=== PATIENT | male | born 1955 | race African-American/Black ===

== ENCOUNTER 2016-10-15 20:06 | Inpatient (IN) | payer BC ==
--- NOTE | 2016-10-15 23:51 | ER Document Report ---
ED Extremity Problem, Lower - General Mode of Arrival: Ambulatory Information source: Patient TRAVEL OUTSIDE OF THE [place] IN LAST 30 DAYS: No - HPI Patient complains to provider of: Swelling Location: Leg - Right Occurred: Last week Onset/Duration: Gradual, Worse Context: Recent travel - [place] via RV <MADISON NAVARRO - Last Filed: 10/15/16 23:46> <EDU DISLA - Last Filed: 10/16/16 02:04> - General Chief Complaint: Leg Swelling Stated Complaint: PAIN ALL OVER Time Seen by Provider: 10/15/16 23:26 Notes: Patient is a 60-year-old male presenting to the emergency department concerned of right leg swelling onset early last week, but acutely worse Saturday. Patient states that it is quite painful, and he is also experiencing numbness in bilateral feet. Patient reports not being able to drive his RV back from [place] secondary to pain. Patient has history of diabetes, and is prescribed insulin only Saturday through Saturday. Patient does not check his sugars very often. Patient goes to the [facility] for primary care management. (MADISON NAVARRO) - Related Data Allergies/Adverse Reactions: No Known Allergies Allergy (Unverified 10/15/16 20:13) Past Medical History - General Information source: Patient - Social History Smoking Status: Never Smoker Chew tobacco use (# tins/day): No Frequency of alcohol use: Heavy Drug Abuse: None Family History: Reviewed & Not Pertinent Patient has suicidal ideation: No Patient has homicidal ideation: No - Past Medical History Cardiac Medical History: Reports: Hx Hypertension Endocrine Medical History: Reports: Hx Diabetes Mellitus Type 2 Renal/ Medical History: Denies: Hx Peritoneal Dialysis - Immunizations Hx Diphtheria, Pertussis, Tetanus Vaccination: Yes <MADISON NAVARRO - Last Filed: 10/15/16 23:46> Review of Systems - Review of Systems Constitutional: No symptoms reported EENT: No symptoms reported Cardiovascular: No symptoms reported Respiratory: No symptoms reported Gastrointestinal: No symptoms reported Genitourinary: No symptoms reported Male Genitourinary: No symptoms reported Musculoskeletal: See HPI, Leg swelling - Right - with pain, bilateral foot numbness Skin: No symptoms reported Hematologic/Lymphatic: No symptoms reported Neurological/Psychological: No symptoms reported -: Yes All other systems reviewed and negative <MADISON NAVARRO - Last Filed: 10/15/16 23:46> Physical Exam - General General appearance: Alert - HEENT Head: Normocephalic, Atraumatic Eyes: Normal Pupils: PERRL Mouth/Lips: Other - Ketone odor on breath - Respiratory Respiratory status: No respiratory distress Chest status: Nontender Breath sounds: Normal Chest palpation: Normal - Cardiovascular Rhythm: Regular Heart sounds: Normal auscultation Murmur: No - Abdominal Inspection: Normal Bowel sounds: Normal Tenderness: Nontender - Back Back: Normal, Nontender - Extremities General upper extremity: Normal inspection - 3+ Pitting edema to Right lower extremity extending into thigh. Small open wounds weeping. No edema to left lower extremity., Nontender General lower extremity: Other - Neurological Neuro grossly intact: Yes Cognition: Normal Orientation: AAOx4 [place] Coma Scale Eye Opening: Spontaneous Shelby Coma Scale Verbal: Oriented Shelby Coma Scale Motor: Obeys Commands Shelby Coma Scale Total: 15 Speech: Normal - Psychological Associated symptoms: Normal affect, Normal mood - Skin Skin Temperature: Warm Skin Moisture: Dry Skin Color: Normal <MADISON NAVARRO - Last Filed: 10/15/16 23:46> Course - Laboratory Result Diagrams: 10/16/16 00:17 10/16/16 00:17 - Diagnostic Test Radiology reviewed: Image reviewed, Reports reviewed - Chest x-ray shows mild cardiac enlargement with pulmonary vascular congestion - EKG Interpretation by Ut EKG shows normal: Sinus rhythm, [place], Intervals. abnormal: QRS Complexes - Consider anteroseptal infarct, ST-T Waves - Nonspecific lateral T abnormalities Rate: Tachycardia - 105 When compared to previous EKG there are: Previous EKG unavailable - Consults Dr. Miguel Time consulted: 01:35 Consulted provider: will come to ER <EDU DISLA - Last Filed: 10/16/16 02:04> - Vital Signs Vital signs: Temp Pulse Resp BP Pulse Ox 98.3 F 100 16 119/60 98 10/15/16 20:09 10/15/16 20:09 10/15/16 20:09 10/15/16 20:09 10/15/16 20:09 - Laboratory Laboratory results interpreted by me: 10/16/16 10/16/16 10/16/16 00:17 00:17 00:17 WBC 19.9 H RBC 3.21 L Hgb 9.3 L Hct 28.6 L Seg Neuts % (Manual) 86 H Lymphocytes % (Manual) 3 L Abs Neuts (Manual) 17.9 H D-Dimer 2.27 H Sodium 126.5 L Chloride 90 L Carbon Dioxide 21 L BUN 27 H Creatinine 1.41 H Est GFR (Non-Af Amer) 51 L Glucose 407 H* Total Bilirubin 2.5 H Direct Bilirubin 1.6 H AST 15 L Alkaline Phosphatase 232 H Creatine Kinase 36 L Total Protein 6.2 L Albumin 3.0 L Discharge <MADISON NAVARRO - Last Filed: 10/15/16 23:46> - Discharge Admitting Provider: Hospitalist Unit Admitted: Telemetry <EDU DISLA - Last Filed: 10/16/16 02:04> - Discharge Clinical Impression: Cellulitis of right lower extremity Hyperglycemia due to type 2 diabetes mellitus Qualifiers: Diabetes mellitus termite exterminator helper insulin use: with termite exterminator helper use Qualified Code(s): E11.65 - Type 2 diabetes mellitus with hyperglycemia Leukocytosis Qualifiers: Leukocytosis type: bandemia Qualified Code(s): D72.825 - Bandemia Condition: Stable Disposition: ADMITTED INPATIENT Scribe Attestation: 10/16/16 01:38 I personally performed the services described in the documentation, reviewed and edited the documentation which was dictated to the scribe in my presence, and it accurately records my words and actions. (EDU DISLA) Scribe Documentation - Scribe Written by Scribe:: Judith Ponce, 10/15/2016 2346 acting as scribe for :: Nadiya <MADISON NAVARRO - Last Filed: 10/15/16 23:46>
[2016-10-16 00:44] LABS: ALANINE AMINOTRANSFERASE 47 U/L (21-72); ALKALINE PHOSPHATASE 232 U/L (38-126); ANION GAP 16 (5-19); ASPARTATE AMINO TRANSFERASE 15 U/L (17-59); BILIRUBIN,DIRECT 1.6 mg/dL (0.0-0.4); BILIRUBIN,TOTAL 2.5 mg/dL (0.2-1.3); BLOOD UREA NITROGEN 27 mg/dL (7-20); CALCIUM 9.3 mg/dL (8.4-10.2); CARBON DIOXIDE 21 mmol/L (22-30); CHLORIDE 90 mmol/L (98-107); CREATINE KINASE 36 U/L (55-170); CREATININE RESULT 1.41 mg/dL (0.52-1.25); POTASSIUM 4.4 mmol/L (3.6-5.0); SODIUM 126.5 mmol/L (137-145); TOTAL PROTEIN 6.2 g/dL (6.3-8.2)
[2016-10-16 00:47] LABS: HEMATOCRIT 28.6 % (37.9-51.0); HEMOGLOBIN 9.3 g/dL (13.5-17.0); HGB HCT DIFFERENCE -0.7; MEAN CORPUSCULAR HGB CONC 32.5 g/dL (32.0-36.0); MEAN CORPUSCULAR VOLUME 89 fl (80-97); RED BLOOD COUNT 3.21 10^6/uL (4.35-5.55); RED CELL DISTRIBUTION WIDTH 11.9 % (11.5-14.0); WHITE BLOOD COUNT 19.9 10^3/uL (4.0-10.5)
[2016-10-16 00:55] LABS: GLUCOSE 407 mg/dL (75-110)
[2016-10-16 00:56] LABS: CREATINE KINASE MB 0.85 ng/mL (<4.55); TROPONIN I < 0.012 ng/mL
[2016-10-16 00:59] LABS: BAND NEUTROPHILS % (MANUAL) 4 % (3-5); BASOPHILS % (MANUAL) 0 % (0-2); EOSINOPHILS % (MANUAL) 0 % (0-6); LYMPHOCYTES % (MANUAL) 3 % (13-45); TOTAL CELLS COUNTED 100
[2016-10-16 01:00] LABS: BURR CELLS SLIGHT; POLYCHROMASIA SLIGHT; TOXIC GRANULATION SLIGHT
--- NOTE | 2016-10-16 01:15 | RADIOLOGY REPORT (SQ) ---
EXAM DESCRIPTION: CHEST SINGLE VIEW COMPLETED DATE/TIME: 10/16/2016 12:59 am REASON FOR STUDY: peripheral edema COMPARISON: None. EXAM PARAMETERS: NUMBER OF VIEWS: One view. TECHNIQUE: Single frontal radiographic view of the chest acquired. RADIATION DOSE: NA LIMITATIONS: None. FINDINGS: LUNGS AND PLEURA: No opacities, masses or pneumothorax. No pleural effusion. Moderate roly g volume. Pulmonary vascular congestion. Small bibasilar atelectasis. MEDIASTINUM AND HILAR STRUCTURES: No masses. Contour normal. HEART AND VASCULAR STRUCTURES: Mild enlargement of the cardiac silhouette. BONES: No acute findings. HARDWARE: None in the chest. OTHER: No other significant finding. IMPRESSION: Mild enlargement of the cardiac silhouette. Pulmonary vascular congestion. TECHNICAL DOCUMENTATION: JOB ID: [id number]
[2016-10-16] MEDS ORDERED: NORMAL SALINE 1000 ML 1,000 ML IV ONE (01:21)
[2016-10-16] MEDS ORDERED: INSULIN REG, HUMAN 100 UNIT/ML 3 ML VIAL (PYX) IV ONE (01:21)
[2016-10-16] MEDS ORDERED: ENOXAPARIN SODIUM INJ 100 MG/1 ML DISP.SYRIN SUBCUT ONE (01:28)
[2016-10-16] MEDS ORDERED: CLINDAMYCIN 600 MG/D5W RTU 50 ML IV ONE (01:37)
[2016-10-16] MEDS ORDERED: GLUCAGON,HUMAN RECOMB 1 MG INJ IM PRN (01:42)
[2016-10-16] MEDS ORDERED: MAG HYDROX/AL HYDROX/SIMETH SUSP 30 ML UDCUP PO PRN (01:42)
[2016-10-16] MEDS ORDERED: MAGNESIUM HYDROXIDE SUSP 30 ML UDCUP PO PRN (01:42)
[2016-10-16] MEDS ORDERED: ACETAMINOPHEN 325 MG TABLET PO PRN (01:42)
[2016-10-16] MEDS ORDERED: DEXTROSE 50%-WATER 25 GM/50 ML DISP.SYRIN IV PRN ×2 (01:42)
[2016-10-16] MEDS ORDERED: DEXTROSE 40% GEL 15 GM TUBE PO PRN ×2 (01:42)
[2016-10-16] MEDS ORDERED: IPRATROPIUM/ALBUTEROL 0.5-2.5 MG/3 ML AMPUL NEB PRN (01:42)
[2016-10-16] MEDS ORDERED: INSULIN GLARGINE,HUM.REC.ANLOG 300 UNIT/3 ML INSULN.PEN SUBCUT SCH (01:45)
[2016-10-16 02:35] LABS: APPEARANCE,URINE SLIGHTLY-CLOUDY; BILIRUBIN,URINE NEGATIVE (NEGATIVE); GLUCOSE, URINE >=500 mg/dL (NEGATIVE); KETONES,URINE TRACE mg/dL (NEGATIVE); LEUKOCYTE ESTERASE,URINE NEGATIVE (NEGATIVE); NITRITE,URINE NEGATIVE (NEGATIVE); PROTEIN,URINE 100 mg/dL (NEGATIVE); URINE SPECIFIC GRAVITY 1.025
[2016-10-16] MEDS: INSULIN LISPRO 100 UNIT/ML 3 ML VIAL SUBCUT PRN ×4 (04:21→21:02)
[2016-10-16] MEDS ORDERED: OXYCODONE-ACETAMINOPHEN 5-325 MG TABLET PO PRN (05:16)
[2016-10-16] MEDS: NORMAL SALINE 1000 ML 1,000 ML IV PRN ×2 (05:32→12:28)
[2016-10-16] MEDS ORDERED: VANCOMYCIN HCL 1,000 MG in DEXTROSE 5%-WATER 250 ML IV ONE (05:43)
--- NOTE | 2016-10-16 05:43 | PDOC H&P ---
History of Present Illness Admission Date/PCP: 10/16/16 01:42 Patient complains of: Right leg pain History of Present Illness: GERMÁN WING is a 60 year old male with a past medical history of hypertension and diabetes who has been in his usual state of health until approximately 5 days ago. During an RV trip to [place] patient noted right leg swelling and pain prompting him to seek evaluation in the emergency room. He denies previous episode chest pain shortness of breath or cough. He has not been in brackish water or taking antibiotics recently. In the emergency room he was found to have leukocytosis and markedly swelling of his right leg with swelling of the knee joint, several open ulcers without exudate and chronic skin changes. Patient endorses bilateral calf pain with ambulation relieved by rest which has been going on for months. Admittedly he does not check his blood sugar and is found to be greater than 400. Past Medical History Cardiac Medical History: Reports: Hypertension Endocrine Medical History: Reports: Diabetes Mellitus Type 2 Social History Information Source: Patient Lives with: Family Smoking Status: Never Smoker Hx Recreational Drug Use: No Drugs: None - Advance Directive Resuscitation Status: Full Code Family History Family History: DM, Hypertension Parental Family History Reviewed: Yes Children Family History Reviewed: Yes Sibling(s) Family History Reviewed.: Yes Medication/Allergy Home Medications: Carvedilol [Coreg] 1 tab PO Q12 10/16/16 Hydrochlorothiazide 12.5 mg PO DAILY 10/16/16 Insulin Glargine,Hum.rec.anlog [Lantus Insulin 100 Unit/1 ml 10 ml] 30 unit SUBCUT QAM 10/16/16 Allergies/Adverse Reactions: No Known Allergies Allergy (Verified 10/16/16 04:30) Review of Systems Constitutional: PRESENT: chills, fatigue, fever(s), other - Arthralgias Eyes: ABSENT: visual disturbances Ears: ABSENT: hearing changes Cardiovascular: ABSENT: chest pain, dyspnea on exertion, edema, orthropnea, palpitations Respiratory: ABSENT: cough, hemoptysis Gastrointestinal: ABSENT: abdominal pain, constipation, diarrhea, hematemesis, hematochezia, nausea, vomiting Genitourinary: ABSENT: dysuria, hematuria Musculoskeletal: PRESENT: as per HPI. ABSENT: joint swelling Integumentary: PRESENT: as per HPI Neurological: ABSENT: abnormal gait, abnormal speech, confusion, dizziness, focal weakness, syncope Psychiatric: ABSENT: anxiety, depression, homidical ideation, suicidal ideation Endocrine: ABSENT: cold intolerance, heat intolerance, polydipsia, polyuria Hematologic/Lymphatic: ABSENT: easy bleeding, easy bruising Physical Exam Vital Signs: Temp Pulse Resp BP Pulse Ox 100.2 F 100 19 108/68 97 10/16/16 04:32 10/15/16 20:09 10/16/16 04:20 10/16/16 04:20 10/16/16 04:20 General appearance: PRESENT: cooperative, mild distress, well-developed, well- nourished Head exam: PRESENT: atraumatic, normocephalic Eye exam: PRESENT: conjunctiva pink, EOMI, PERRLA. ABSENT: scleral icterus Ear exam: PRESENT: normal external ear exam Mouth exam: PRESENT: moist, tongue midline Neck exam: ABSENT: carotid bruit, JVD, lymphadenopathy, thyromegaly Respiratory exam: PRESENT: clear to auscultation sania. ABSENT: rales, rhonchi, wheezes Cardiovascular exam: PRESENT: gallop, RRR, +S2, systolic murmur. ABSENT: diastolic murmur, rubs Pulses: PRESENT: normal dorsalis pedis pul GI/Abdominal exam: PRESENT: normal bowel sounds, soft. ABSENT: distended, guarding, mass, organolmegaly, rebound, tenderness Rectal exam: PRESENT: deferred Extremities exam: PRESENT: full ROM. ABSENT: calf tenderness, clubbing, pedal edema Neurological exam: PRESENT: alert, awake, oriented to person, oriented to place , oriented to time, oriented to situation, CN II-XII grossly intact. ABSENT: motor sensory deficit Psychiatric exam: PRESENT: appropriate affect, normal mood. ABSENT: homicidal ideation, suicidal ideation Skin exam: PRESENT: abrasion, erythema, warm. ABSENT: intact Results Laboratory Results: 10/16/16 01:50 Urine Color DARK YELLOW Urine Appearance SLIGHTLY-CLOUDY Urine pH 5.0 Ur Specific [place] 1.025 Urine Protein 100 H Urine Glucose (UA) >=500 H Urine Ketones TRACE H Urine Blood NEGATIVE Urine Nitrite NEGATIVE Ur Leukocyte Esterase NEGATIVE Urine WBC (Auto) 12 Urine RBC (Auto) 31 Impressions: Chest X-Ray 10/15/16 23:46 IMPRESSION: Mild enlargement of the cardiac silhouette. Pulmonary vascular congestion. Assessment & Plan - Diagnosis (1) Cellulitis of right lower extremity Is this a current diagnosis for this admission?: YesPlan: Empiric coverage for MRSA and Pseudomonas, complicated by uncontrolled diabetes and peripheral vascular disease by history. Strongly consider orthopedic surgery consultation for arthrocentesis given knee joint pain (2) Cardiomegaly Is this a current diagnosis for this admission?: YesPlan: No history of heart failure and concern for bacteremia and endocarditis will initiate workup with TTE (3) DVT (deep venous thrombosis) Is this a current diagnosis for this admission?: YesPlan: Full dose Lovenox initiated and continued, venous Doppler pending (4) Hyperglycemia due to type 2 diabetes mellitus Qualifiers: Diabetes mellitus mcfp insulin use: with mcfp use Qualified Code(s): E11.65 - Type 2 diabetes mellitus with hyperglycemia Is this a current diagnosis for this admission?: YesPlan: A1c ordered, continue home dose Lantus plus sliding scale q. before meals and at bedtime (5) Leukocytosis Qualifiers: Leukocytosis type: bandemia Qualified Code(s): D72.825 - Bandemia Is this a current diagnosis for this admission?: YesPlan: Leg cellulitis likely source spell and concern for bacteremia given systemic symptoms, cardiomegaly with murmur. Follow-up blood cultures, empiric antibiotics initiated - Time Time Spent: 50 to 70 Minutes - Inpatient Certification Medical Necessity: Need Close Monitoring Due to Risk of Patient Decompensation
[2016-10-16] MEDS ORDERED: VANCOMYCIN HCL 0 MG in DEXTROSE 5%-WATER 250 ML IV NR (05:45)
[2016-10-16] MEDS ORDERED: PIPERACILLIN/TAZOBACTAM 3.375 GM VIAL IV PRN (06:00)
[2016-10-16] MEDS ORDERED: VANCOMYCIN HCL INJ 1000 MG VIAL IV PRN (06:30)
[2016-10-16] MEDS ORDERED: PIPERACILLIN/TAZOBACTAM 3.375 GM VIAL IV ONE (06:31)
[2016-10-16] MEDS ORDERED: VANCOMYCIN HCL INJ 1000 MG VIAL ONE (06:31)
[2016-10-16 06:39] LABS: ANION GAP 13 (5-19); BLOOD UREA NITROGEN 30 mg/dL (7-20); CARBON DIOXIDE 23 mmol/L (22-30); CHLORIDE 90 mmol/L (98-107); CREATININE RESULT 1.36 mg/dL (0.52-1.25); GLUCOSE 355 mg/dL (75-110); POTASSIUM 3.9 mmol/L (3.6-5.0)
[2016-10-16 06:52] LABS: HEMATOCRIT 27.4 % (37.9-51.0); HEMOGLOBIN 9.1 g/dL (13.5-17.0); HGB HCT DIFFERENCE -0.1; MEAN CORPUSCULAR HEMOGLOBIN 29.6 pg (27.0-33.4); MEAN CORPUSCULAR HGB CONC 33.2 g/dL (32.0-36.0); MEAN CORPUSCULAR VOLUME 89 fl (80-97); RED BLOOD COUNT 3.07 10^6/uL (4.35-5.55); RED CELL DISTRIBUTION WIDTH 11.9 % (11.5-14.0); WHITE BLOOD COUNT 19.7 10^3/uL (4.0-10.5)
[2016-10-16] MEDS: PIPERACILLIN SODIUM/TAZOBACTAM 3.375 GM in NORMAL SALINE 100 ML IV SCH ×3 (07:01→17:37)
[2016-10-16 07:03] LABS: BAND NEUTROPHILS % (MANUAL) 5 % (3-5); BASOPHILS % (MANUAL) 0 % (0-2); EOSINOPHILS % (MANUAL) 0 % (0-6); LYMPHOCYTES % (MANUAL) 9 % (13-45); TOTAL CELLS COUNTED 100
[2016-10-16 07:09] LABS: HYPOCHROMASIA SLIGHT; POLYCHROMASIA SLIGHT
--- NOTE | 2016-10-16 10:02 | EKG REPORT ---
SEVERITY:- ABNORMAL ECG - SINUS TACHYCARDIA CONSIDER ANTEROSEPTAL INFARCT NONSPECIFIC T ABNORMALITIES, LATERAL LEADS : Confirmed by: Milad Alcantara 16-Oct-2016 10:01:24
--- NOTE | 2016-10-16 10:51 | RADIOLOGY REPORT (SQ) ---
EXAM DESCRIPTION: VENOUS UNILATERAL LOWER COMPLETED DATE/TIME: 10/16/2016 10:37 am REASON FOR STUDY: edema COMPARISON: None. TECHNIQUE: Dynamic and static álvarez scale and color images acquired of the right leg venous system. S elected spectral images acquired with additional compression and augmentation maneuvers. The contrala teral common femoral vein and saphenofemoral junction were also imaged. Images stored on PACS. LIMITATIONS: None. FINDINGS: RIGHT COMMON FEMORAL: Normal phasicity, compression and augmentation. No visualized echogenic material on g ray scale. No defects on color images. FEMORAL: Normal compression and augmentation. No visualized echogenic material on álvarez scale. No defe cts on color images. POPLITEAL: Normal compression, augmentation. No visualized echogenic material on álvarez scale. No defec ts on color images. CALF VESSELS: Normal compression, augmentation. No visualized echogenic material on álvarez scale. No de fects on color images. GSV and SSV: Normal compression, augmentation. No visualized echogenic material on álvarez scale. No def ects on color images. ANY DEEP VENOUS INSUFFICIENCY: No deep venous reflux. ANY EVIDENCE OF POPLITEAL CYST: No. OTHER: No other significant finding. LEFT COMMON FEMORAL VEIN AND SAPHENOFEMORAL JUNCTION: Normal phasicity, compression and augmentation. No visualized echogenic material on álvarez scale. No de fects on color images. IMPRESSION: NO EVIDENCE OF DVT OR SVT IN THE RIGHT LEG. TECHNICAL DOCUMENTATION: JOB ID: [id number] [employer]- All Rights Reserved
[2016-10-16] MEDS: DOCUSATE SODIUM 100 MG CAPSULE PO SCH ×2 (10:56→17:37)
[2016-10-16] MEDS: CARVEDILOL 12.5 MG TABLET PO SCH ×2 (10:57→21:01)
--- NOTE | 2016-10-16 11:23 | PROGRESS NOTE E ---
Progress Note NAME: GERMÁN WING : 1955 AGE: 60Y DATE: 10/16/2016 ROOM: 425 TIME SPENT MANAGING PATIENT: 40 minutes. SUBJECTIVE: Patient continued to have right leg pain. Again, noted that he has been on a recent RV trip and was sitting the whole time basically. No prior history of blood clot. He denies fever, chills, headache, chest pain, and shortness of breath. He denies any history of liver disease or drinking. OBJECTIVE: VITAL SIGNS: Temperature 100.2, blood pressure 107/50, pulse 95, respirations 20. GENERAL: He is alert, in no apparent distress. HEENT: Sclera is nonicteric. Conjunctivae clear. Oropharynx has moist mucous membranes. NECK: No JVD. Midline trachea. RESPIRATORY: Clear to auscultation. No wheezes, rhonchi. CARDIAC: Regular rate and rhythm. No murmurs, gallops, rubs. ABDOMEN: Soft, nontender, nondistended. Positive bowel sounds. No rebound, no guarding. EXTREMITIES: He has swelling in his right lower extremity. He does have calf tenderness noted in the right leg as well. SKIN: He has erythema, induration of the right lower extremity distal to the knee. LABORATORIES: White blood count 19.7, hemoglobin 9.1. Chemistry panel shows sodium 126, potassium 3.9, chloride 90, bicarb 23, BUN 30, creatinine 1.36, glucose 355, total bili 2.5, direct bili is 1.6. AST 15, ALT 47, Alk phos 232. ASSESSMENT AND PLAN: 1. RIGHT LOWER EXTREMITY CELLULITIS. Continue IV vancomycin and Zosyn started on admission. Blood cultures are pending. Venous Doppler of the lower extremity is pending given patient's history of recent long RV trip. We will continue full-dose Lovenox for now until Doppler results are back. 2. ANEMIA. Given constellation of anemia and elevated liver function tests, hyponatremia, concerned that patient may be a drinker, although there is no reported history of this. We will need to monitor for signs of withdrawal with regard to this. With regard to the anemia itself, I will check anemia panel and monitor H and H for stability on anticoagulation. Hemoccult stool as well. 3. HYPONATREMIA. THIS MAY BE PSEUDOHYPONATREMIA ACTUALLY GIVEN SIGNIFICANT ELEVATION IN GLUCOSE. Continue to monitor labs closely and correct hyperglycemia. 4. UNCONTROLLED DIABETES. Patient has been started on Lantus. Check a hemoglobin A1C. Sliding scale insulin. He admits to not checking sugars regularly. 5. ELEVATED LIVER FUNCTION TEST. Check hepatitis panel. Monitor for any signs of alcohol withdrawal, although patient denies history. 6. HYPERTENSION. 7. CARDIOMEGALY. Check echocardiogram. DICTATING PHYSICIAN: KANE STEVENSON M.D. [id number] PHY#: [id number] ID: [id number] JOB#: [id number] ACCT: [id number] cc: >
[2016-10-16 13:48] LABS: FOLATE 8.23 ng/mL (>2.76)
[2016-10-16] MEDS ORDERED: ENOXAPARIN SODIUM INJ 100 MG/1 ML DISP.SYRIN SUBCUT SCH (14:00)
[2016-10-16] MEDS: VANCOMYCIN HCL 1,000 MG in DEXTROSE 5%-WATER 250 ML IV SCH (17:37)
[2016-10-16] MEDS: ACETAMINOPHEN 325 MG TABLET PO PRN (20:21)
[2016-10-17] MEDS: PIPERACILLIN SODIUM/TAZOBACTAM 3.375 GM in NORMAL SALINE 100 ML IV SCH ×4 (00:32→20:13)
[2016-10-17 05:16] LABS: ALANINE AMINOTRANSFERASE 37 U/L (21-72); ALBUMIN 2.6 g/dL (3.5-5.0); ALKALINE PHOSPHATASE 226 U/L (38-126); ASPARTATE AMINO TRANSFERASE 15 U/L (17-59); BILIRUBIN,DIRECT 1.6 mg/dL (0.0-0.4); BILIRUBIN,TOTAL 2.2 mg/dL (0.2-1.3); TOTAL PROTEIN 5.2 g/dL (6.3-8.2)
[2016-10-17] MEDS: ACETAMINOPHEN 325 MG TABLET PO PRN (05:47)
[2016-10-17] MEDS: VANCOMYCIN HCL 1,000 MG in DEXTROSE 5%-WATER 250 ML IV SCH ×2 (06:25→18:21)
[2016-10-17] MEDS: ENOXAPARIN SODIUM INJ 40 MG/0.4 ML DISP.SYRIN SUBCUT SCH (08:01)
[2016-10-17] MEDS: INSULIN LISPRO 100 UNIT/ML 3 ML VIAL SUBCUT PRN ×3 (08:13→21:33)
--- NOTE | 2016-10-17 09:37 | PDOC PROGRESS REPORT ---
Subjective Progress Note for:: 10/17/16 Subjective:: Continued pain and swelling of right leg. Fevers reported overnight. Patient denies chest pain, shortness of breath, abdominal pain, nausea, vomiting. Physical Exam Vital Signs: Temp Pulse Resp BP Pulse Ox 97.9 F 84 16 145/74 H 99 10/17/16 08:00 10/17/16 08:00 10/17/16 08:00 10/17/16 08:00 10/17/16 08:00 Intake & Output 10/16/16 10/17/16 10/18/16 06:59 06:59 06:59 Intake Total 250 3240 Balance 250 3240 Weight 97.3 kg 97.3 kg GENERAL: No acute distress HEENT: Conjunctiva clear, nonicteric, moist mucous membranes, no JVD, midline trachea RESPIRATORY: Clear to auscultation bilaterally, no wheezes, no rhonchi CARDIAC: Regular rate and rhythm, no murmurs/gallops/rubs ABDOMEN: Soft, nondistended, nontender, positive bowel sounds, no rebound, no guarding EXTREMETIES: No edema, cyanosis, clubbing NEUROLOGIC: Alert, oriented to person/place/time, CN's grossly intact, no focal deficits. Tactile sensation intact in right lower extremity, patient able to plantarflex and dorsiflex right foot. No evidence of compartment syndrome. SKIN: Erythema/induration right lower extremity distal to the knee PSYCH: Normal mood, normal affect MUSCULOSKELETAL: Patient has continued swelling and tenderness of right lower extremity Results Laboratory Results: 10/16/16 06:06 10/16/16 06:06 10/16/16 10/16/16 10/17/16 06:06 06:06 04:46 Retic Count (auto) 2.18 Absolute Retic 0.068 Iron < 10.1 L TIBC 242 L % Saturation UNABLE TO CALCULATE Ferritin 525.00 H Total Bilirubin 2.2 H AST 15 L ALT 37 Alkaline Phosphatase 226 H Total Protein 5.2 L Albumin 2.6 L Vitamin B12 674.0 Folate 8.23 Impressions: Chest X-Ray 10/15/16 23:46 IMPRESSION: Mild enlargement of the cardiac silhouette. Pulmonary vascular congestion. Venous Doppler Study 10/16/16 00:00 IMPRESSION: NO EVIDENCE OF DVT OR SVT IN THE RIGHT LEG. Assessment & Plan - Diagnosis (1) Sepsis Is this a current diagnosis for this admission?: YesPlan: Secondary to right lower extremity cellulitis. (2) Cellulitis of right lower extremity Is this a current diagnosis for this admission?: YesPlan: Condition not improving despite IV Zosyn and IV vancomycin. Check MRI of right lower extremity to rule out deep space fluid collection. Consult surgery if MRI is abnormal. (3) Alcohol abuse Is this a current diagnosis for this admission?: YesPlan: Continue to monitor for signs of withdrawal. As needed Ativan. Thiamine. (4) Hypertension Is this a current diagnosis for this admission?: Yes (5) Hyponatremia Is this a current diagnosis for this admission?: YesPlan: Likely secondary to alcohol abuse. Should correct with alcohol cessation. (6) Elevated liver function tests Is this a current diagnosis for this admission?: YesPlan: Likely secondary to alcohol use. Viral hepatitis panel negative. (7) Hyperglycemia due to type 2 diabetes mellitus Qualifiers: Diabetes mellitus usp insulin use: with local company intermodal truck driver use Qualified Code(s): E11.65 - Type 2 diabetes mellitus with hyperglycemia Is this a current diagnosis for this admission?: YesPlan: Glucose control poor secondary to ongoing infection. Increase Lantus to 40 units subcu nightly. Continue sliding scale insulin coverage. Hemoglobin A1c 8.0. - Time Time Spent with patient: 35 or more minutes
[2016-10-17] MEDS: CARVEDILOL 12.5 MG TABLET PO SCH ×2 (10:19→21:33)
[2016-10-17] MEDS: THIAMINE HCL 100 MG TABLET PO SCH (10:19)
[2016-10-17] MEDS: DOCUSATE SODIUM 100 MG CAPSULE PO SCH ×2 (10:19→18:21)
[2016-10-17] MEDS: OXYCODONE HCL IR 5 MG TABLET PO PRN ×2 (10:35→16:49)
[2016-10-17] MEDS ORDERED: SUCCINYLCHOLINE CHLORIDE INJ 200 MG/10 ML VIAL ONE (10:42)
[2016-10-17] MEDS ORDERED: LIDOCAINE 2% INJ-PF (20 MG/ML) 10 ML AMPUL ONE (10:42)
[2016-10-17] MEDS ORDERED: GLYCOPYRROLATE INJ 0.4 MG/2 ML VIAL ONE (10:42)
[2016-10-17] MEDS ORDERED: ONDANSETRON HCL INJ/PF 4 MG/2 ML SDV ONE (10:42)
[2016-10-17] MEDS ORDERED: ROCURONIUM BROMIDE INJ 50 MG/5 ML VIAL IV ONE (10:42)
--- NOTE | 2016-10-17 13:17 | XCELERA REPORT ---
[address] [address] Transthoracic Echocardiogram Report Name: GERMÁN WING Age: 60 yrs Gender: Male : 1955 Patient Status: Inpatient Patient Location: 4S\S\425\S\A Study Date: 10/16/2016 09:52 AM Height: 72 in Weight: 215 lb BSA: 2.2 m2 Procedure: A two-dimensional transthoracic echocardiogram with color flow and Doppler was performed. Study Quality: Fair. Reason For Study: bacteremia w murmur History: bacteremia w murmur. Ordering Physician: BOLIVAR MOORE Performed By: Lexii Cardona Interpretation Summary The left ventricle is normal in size. There is mild concentric left ventricular hypertrophy. LV EF is > than 65% Left ventricular systolic function is normal. Doppler measurements suggest normal left ventricular diastolic function The left ventricular wall motion is normal. The right ventricle is grossly normal size. The left atrial size is normal. There is no evidence of mitral valve prolapse. There is no mitral valve stenosis. There is no mitral regurgitation noted. There is mild to moderate aortic stenosis There is a peak gradient of 37 mm of Hg. No aortic regurgitation is present. There is no tricuspid stenosis. There is a mild amount of tricuspid regurgitation There is mild pulmonary hypertension by echo RVSP is 43 to 48 mm of Hg ,with RA mean of 5 to 10. There is no pericardial effusion. MMode/2D Measurements \T\ Calculations RVDd: 3.2 cm LVIDd: 4.8 cmFS: 38.1 % Ao root diam: 3.2 cm IVSd: 1.3 cm LVIDs: 2.9 cmEDV(Teich): 105.0 ml LVPWd: 1.3 cmESV(Teich): 33.3 ml Ao root area: 7.9 cm2 EF(Teich): 68.3 % LA dimension: 3.9 cm LVOT diam: 2.3 cm LVOT area: 4.2 cm2 Doppler Measurements \T\ Calculations MV E max sarah: MV P1/2t max sarah: Ao V2 max: LV V1 max P.3 cm/sec 130.9 cm/sec 304.1 cm/sec 7.6 mmHg MV A max sarah: MV P1/2t: 58.7 msec Ao max PG: LV V1 mean P.8 cm/sec MVA(P1/2t): 3.7 cm2 37.0 mmHg 3.6 mmHg MV E/A: 1.5 MV dec slope: Ao V2 mean: LV V1 max: 653.7 cm/sec2 204.0 cm/sec 137.9 cm/sec Ao mean PG: LV V1 mean: 20.0 mmHg 84.9 cm/sec Ao V2 VTI: LV V1 VTI: 56.5 cm 23.9 cm BECK(I,D): 1.8 cm2 BECK(V,D): 1.9 cm2 SV(LVOT): 100.1 ml PA V2 max: TR max sarah: 120.0 cm/sec 309.3 cm/sec PA max P.8 mmHg TR max P.3 mmHg Left Ventricle The left ventricle is normal in size. There is mild concentric left ventricular hypertrophy. LV EF is > than 65%. Left ventricular systolic function is normal. Doppler measurements suggest normal left ventricular diastolic function. The left ventricular wall motion is normal. There is no thrombus. There is no ventricular septal defect visualized. Right Ventricle The right ventricle is grossly normal size. Atria The right atrium is normal. The left atrial size is normal. The interatrial septum is intact with no evidence for an atrial septal defect. Mitral Valve There is mild mitral annular calcification. There is no evidence of mitral valve prolapse. There is no vegetation seen on the mitral valve. There is no mitral valve stenosis. There is no mitral regurgitation noted. Aortic Valve There is no aortic valvular vegetation. There is mild to moderate aortic stenosis. There is a peak gradient of 37 mm of Hg. No aortic regurgitation is present. Tricuspid Valve There is no tricuspid stenosis. There is a mild amount of tricuspid regurgitation. There is mild pulmonary hypertension by echo. RVSP is 43 to 48 mm of Hg ,with RA mean of 5 to 10. Pulmonic Valve There is no pulmonic valvular stenosis. There is no pulmonic valvular regurgitation. Great Vessels The aortic root is normal size. Effusions There is no pericardial effusion. : BOLIVAR MOORE > Leighann Quick
[2016-10-17] MEDS ORDERED: NORMAL SALINE 1000 ML 1,000 ML IV PRN (15:30)
--- NOTE | 2016-10-17 17:41 | RADIOLOGY REPORT (SQ) ---
EXAM DESCRIPTION: MRI RT LOWER EXTREMITY WITHOUT COMPLETED DATE/TIME: 10/17/2016 1:49 pm REASON FOR STUDY: RLE cellulitis COMPARISON: Right lower extremity venous Doppler 10/16/2016 TECHNIQUE: Right lower extremity MRI was performed from the mid thighs through the mid calf, includi ng axial sagittal and coronal T1, and stir/ fat-sat T2 weighted images. FINDINGS: Imaging from the mid thigh through the knee joint demonstrates abnormal muscle edema withi n the distal aspect of the vastus medialis muscle, and at the distal attachment of the biceps femoris . These findings are best shown on series 3 images 20 through 31, and are worrisome for myositis wit hout abscess. In the distal medial thigh, skin thickening and subcutaneous edema is present. Superficial to the me dial and lateral patellar retinaculum, there is soft tissue gas in the subcutaneous fat, and gas and fluid in the prepatellar bursa. These findings are best shown on series 3, image 32 through 43, and sagittal STIR series 6 images 7 through 28. Large field of view imaging was performed. There is a suprapatellar knee joint effusion. No gross i ntra articular air is identified. Subtle muscular edema is present in the tibialis anterior muscle on axial images 22 through 36 worris ome for myositis. No well-circumscribed fluid collection in the muscle worrisome for intramuscular a bscess There is diffuse pretibial subcutaneous edema and skin thickening from superficial cellulitis in the lower leg. No abnormal bone marrow signal. Normal flow signal identified in the distal superficial femoral blessing ry and vein and popliteal artery and vein in the field of view. This report was discussed with Dr. Kaplan, 1430 hours, 10/17/2016. IMPRESSION: Air and fluid in the prepatellar bursa with extensive surrounding cellulitis in the ante rior knee soft tissues. Muscle edema involving the vastus medialis inferior aspect, and distal aspect medial head biceps femo ris. Muscle edema in the tibialis anterior. These findings are worrisome for myositis. No definite intramuscular abscess is identified. Knee joint effusion without gross evidence of intra-articular air by MRI. TECHNICAL DOCUMENTATION: JOB ID: [id number] [employer]- All Rights Reserved
[2016-10-17 18:56] LABS: CREATININE RESULT 1.02 mg/dL (0.52-1.25)
[2016-10-17] MEDS ORDERED: VANCOMYCIN HCL 500 MG in DEXTROSE 5%-WATER 100 ML IV ONE ×2 (20:00→21:00)
[2016-10-17 20:51] LABS: HEMATOCRIT 27.1 % (37.9-51.0); HEMOGLOBIN 8.9 g/dL (13.5-17.0); HGB HCT DIFFERENCE -0.4; MEAN CORPUSCULAR HEMOGLOBIN 29.3 pg (27.0-33.4); MEAN CORPUSCULAR VOLUME 89 fl (80-97); RED BLOOD COUNT 3.06 10^6/uL (4.35-5.55); RED CELL DISTRIBUTION WIDTH 12.3 % (11.5-14.0); WHITE BLOOD COUNT 21.1 10^3/uL (4.0-10.5)
[2016-10-17] MEDS ORDERED: INSULIN GLARGINE,HUM.REC.ANLOG 300 UNIT/3 ML INSULN.PEN SUBCUT SCH (22:00)
[2016-10-17] MEDS ORDERED: LIDOCAINE 0.5% INJ-PF (5 MG/ML) 50 ML SDV ONE (22:38)
[2016-10-17] MEDS ORDERED: MIDAZOLAM 2 MG/2 ML INJ ONE (22:46)
[2016-10-17] MEDS ORDERED: FENTANYL CITRATE INJ/PF 100 MCG/2 ML AMPUL ONE (22:46)
[2016-10-17] MEDS ORDERED: PROPOFOL INJ 200 MG/20 ML VIAL IV ONE (22:47)
[2016-10-17] MEDS ORDERED: MORPHINE SULFATE 10 MG/ML INJ ONE (22:47)
[2016-10-17] MEDS ORDERED: EPHEDRINE SULFATE INJ 50 MG/1 ML AMPULE ONE (22:47)
[2016-10-17] MEDS: NORMAL SALINE 1000 ML 1,000 ML IV PRN (22:56)
[2016-10-18] MEDS ORDERED: MIDAZOLAM 2 MG/2 ML INJ ONE (00:02)
[2016-10-18] MEDS ORDERED: ACETAMINOPHEN 100 ML IV ONE (00:02)
[2016-10-18] MEDS ORDERED: FENTANYL CITRATE INJ/PF 100 MCG/2 ML AMPUL ONE (00:02)
[2016-10-18] MEDS ORDERED: MORPHINE SULFATE 10 MG/ML INJ IV PRN (00:10)
[2016-10-18] MEDS ORDERED: PROMETHAZINE HCL INJ 25 MG/1 ML VIAL IV PRN ×2 (00:10)
[2016-10-18] MEDS ORDERED: MEPERIDINE HCL/PF INJ 25 MG/1 ML DISP.SYRIN IV PRN (00:10)
[2016-10-18] MEDS ORDERED: OXYCODONE-ACETAMINOPHEN 5-325 MG TABLET PO PRN ×2 (00:10)
[2016-10-18] MEDS ORDERED: FENTANYL CITRATE INJ/PF 100 MCG/2 ML AMPUL IV PRN ×3 (00:10)
[2016-10-18] MEDS ORDERED: DIPHENHYDRAMINE HCL 50 MG/ML VIAL IV PRN (00:10)
[2016-10-18] MEDS ORDERED: PROPOFOL 100 ML IV ONE (01:14)
[2016-10-18] MEDS ORDERED: INSULIN REG, HUMAN 100 UNIT/ML 3 ML VIAL (PYX) IV ONE (01:30)
[2016-10-18] MEDS: LORAZEPAM INJ 2 MG/1 ML VIAL IV PRN (01:37)
[2016-10-18] MEDS: PIPERACILLIN SODIUM/TAZOBACTAM 3.375 GM in NORMAL SALINE 100 ML IV SCH ×4 (01:38→17:45)
[2016-10-18] MEDS ORDERED: INSULIN, REGULAR 100 UNIT/100 ML NORMAL SALINE IV PRN ×2 (02:30)
[2016-10-18] MEDS ORDERED: DEXTROSE 40% GEL 15 GM TUBE PO PRN (02:30)
[2016-10-18] MEDS ORDERED: DEXTROSE 40% GEL 15 GM TUBE X 2 PO PRN (02:30)
[2016-10-18] MEDS ORDERED: GLUCAGON,HUMAN RECOMB 1 MG INJ IM PRN (02:30)
[2016-10-18] MEDS ORDERED: DEXTROSE 50%-WATER SYRINGE 12.5 GM/25 ML DOSE IV PRN (02:30)
[2016-10-18] MEDS ORDERED: DEXTROSE 50%-WATER SYRINGE 25 GM/50 ML DOSE IV PRN (02:30)
--- NOTE | 2016-10-18 02:31 | RADIOLOGY REPORT (SQ) ---
EXAM DESCRIPTION: CHEST SINGLE VIEW COMPLETED DATE/TIME: 10/18/2016 2:21 am REASON FOR STUDY: for Intubation and NGT insertion COMPARISON: Chest x-ray 10/16/2016 EXAM PARAMETERS: NUMBER OF VIEWS: One view TECHNIQUE: Single frontal radiograph of the chest. RADIATION DOSE: N/A LIMITATIONS: Multiple monitoring wires are overlying the patient's chest. FINDINGS: TEMPORARY SUPPORT DEVICES:ETT in expected location. NG tube courses below the left shiva-d iaphragm in to the stomach. LUNGS AND PLEURA: Mild atelectatic changes in the bilateral lower lobes. No pneumothorax or pleural effusion. MEDIASTINUM AND HILAR STRUCTURES: No masses. Contour normal. HEART AND VASCULAR STRUCTURES: The heart remains mildly enlarged. No overt vascular congestion. BONES: No acute findings. IMPRESSION: Mild cardiomegaly. Mild bibasilar atelectasis. Support devices in expected locations. TECHNICAL DOCUMENTATION: JOB ID: [id number] [employer]- All Rights Reserved
[2016-10-18 02:34] LABS: APPEARANCE,URINE CLEAR; BILIRUBIN,URINE NEGATIVE (NEGATIVE); GLUCOSE, URINE >=500 mg/dL (NEGATIVE); KETONES,URINE 20 mg/dL (NEGATIVE); LEUKOCYTE ESTERASE,URINE NEGATIVE (NEGATIVE); NITRITE,URINE NEGATIVE (NEGATIVE); PROTEIN,URINE 30 mg/dL (NEGATIVE); URINE SPECIFIC GRAVITY 1.028
[2016-10-18 02:37] LABS: ARTERIAL BLOOD BASE EXCESS -0.9 mmol/L
--- NOTE | 2016-10-18 03:14 | OPERATIVE REPORT E ---
Operative Report NAME: GERMÁN WING : 1955 AGE: 60Y DATE OF SURGERY: 10/18/2016 ROOM: 605 PREOPERATIVE DIAGNOSIS: Abscess of the right leg with gas formation. POSTOPERATIVE DIAGNOSIS: Abscess of the right leg with gas formation with abscess forming along the right parapatellar area, right lateral compartment area just close to the knee, and starting right lateral compartment syndrome. OPERATION: Incision and drainage of abscess, right knee and right lower leg, pulse irrigation and packing with Iodoform gauze, right lateral fasciotomy. SURGEON: JOSE RAMON AGUIRRE M.D. PROCEDURE: After adequate general anesthesia, the right leg from the thigh down to the ankle was then prepped and draped in the usual sterile fashion. There was an area of contusion in the right lateral area just below the knee. An incision was made in this area in a longitudinal manner and a lot of purulent pus with gas noted to extrude out. Specimens for cultures were then obtained. With the use of hemostat, the area was undermined proximally and distally and incision extended with the use of cautery. There was some necrotic tissue on top of the fascia. The distal incision was extended to about 6 inches distally. It was then extended proximally towards the area of the knee. Again, there was more purulent material extruded out and disbursed with gas. Next, a transverse incision on the right knee cap area. A lot of purulent brownish fluid was then evacuated. This was mixed with some gas. The 2 incisions were connected through a small bridge of skin and subcutaneous. The area was then pulse lavaged with 3 liters of saline. Another incision was made above-knee lateral aspect where there was some edema noted. About a 2 inch incision was made with no evidence of purulent material or just underneath the fascia that was opened. This also was then pulse lavaged. Hemostasis controlled with cautery and with suture ligature using 2-0 Vicryl undyed. Next, a fasciotomy was made on the lateral aspect extending to about 6 inches long. The muscle here appeared to be quite edematous but no obvious compartment syndrome, although I feel it is starting to develop. The muscle underneath looked viable. The abscess also appeared to go over the tibial bone towards medial side. No further purulent materials were squeezed out of this area. The areas were then pulse evacuated with 3 liters of saline and adequate hemostasis noted and controlled with electrocautery. There was some necrotic tissue just above the fascia on the below the knee area that was partially excised. There was no evidence of fasciitis or myositis at this time. Next, the area was then packed with 1/2-inch Iodoform gauze and 1-inch Iodoform gauze. ABD and Jeane were placed as dressing and topped with a 6 inch Jeremias bandage. Needle, instrument, and sponge counts were all correct; and estimated blood loss was about 100 mL. The patient tolerated the procedure well and kept intubated. He was then transferred to intensive care unit where he will be extubated in the morning. DICTATING PHYSICIAN: JOSE RAMON AGUIRRE M.D. [id number] PHY#: [id number] ID: [id number] JOB#: [id number] ACCT: [id number] cc:JOSE RAMON AGUIRRE M.D. >
[2016-10-18 03:39] LABS: ANION GAP 10 (5-19); BLOOD UREA NITROGEN 26 mg/dL (7-20); CARBON DIOXIDE 23 mmol/L (22-30); CHLORIDE 97 mmol/L (98-107); CREATININE RESULT 1.08 mg/dL (0.52-1.25); GLUCOSE 322 mg/dL (75-110); HEMOGLOBIN 8.3 g/dL (13.5-17.0); HGB HCT DIFFERENCE -0.1; MAGNESIUM 2.1 mg/dL (1.6-2.3); MEAN CORPUSCULAR HEMOGLOBIN 29.4 pg (27.0-33.4); MEAN CORPUSCULAR HGB CONC 33.2 g/dL (32.0-36.0); MEAN CORPUSCULAR VOLUME 89 fl (80-97); POTASSIUM 4.2 mmol/L (3.6-5.0); RED BLOOD COUNT 2.82 10^6/uL (4.35-5.55); RED CELL DISTRIBUTION WIDTH 12.6 % (11.5-14.0); SODIUM 129.6 mmol/L (137-145); WHITE BLOOD COUNT 17.2 10^3/uL (4.0-10.5)
[2016-10-18 04:02] LABS: BAND NEUTROPHILS % (MANUAL) 4 % (3-5); BASOPHILS % (MANUAL) 0 % (0-2); EOSINOPHILS % (MANUAL) 0 % (0-6); LYMPHOCYTES % (MANUAL) 10 % (13-45); TOTAL CELLS COUNTED 100
[2016-10-18 04:03] LABS: RBC MORPHOLOGY COMMENT NORMO-CYTIC/CHROMIC; TOXIC GRANULATION SLIGHT; TOXIC VACUOLATION PRESENT
[2016-10-18] MEDS: HYDROMORPHONE HCL INJ/PF 2 MG/ML AMPULE IV PRN (04:59)
[2016-10-18] MEDS: PROPOFOL 100 ML IV PRN ×2 (04:59→06:59)
[2016-10-18] MEDS ORDERED: VANCOMYCIN HCL 1,500 MG in DEXTROSE 5%-WATER 250 ML IV SCH (06:00)
[2016-10-18 07:41] LABS: ANION GAP 11 (5-19); BLOOD UREA NITROGEN 25 mg/dL (7-20); CALCIUM 9.3 mg/dL (8.4-10.2); CARBON DIOXIDE 25 mmol/L (22-30); CHLORIDE 97 mmol/L (98-107); CREATININE RESULT 1.01 mg/dL (0.52-1.25); GLUCOSE 255 mg/dL (75-110); POTASSIUM 4.2 mmol/L (3.6-5.0); SODIUM 132.9 mmol/L (137-145); TRIGLYCERIDES 316 mg/dL (<150)
[2016-10-18] MEDS: ENOXAPARIN SODIUM INJ 40 MG/0.4 ML DISP.SYRIN SUBCUT SCH (08:01)
--- NOTE | 2016-10-18 08:08 | PDOC PROGRESS REPORT ---
Subjective Progress Note for:: 10/18/16 Subjective:: Patient underwent incision and drainage of right leg abscess and fasciotomy for early compartment syndrome. Patient remained intubated postoperatively. I cannot obtain history from patient secondary to sedated/intubated state. Physical Exam Vital Signs: Temp Pulse Resp BP Pulse Ox 99.0 F 83 11 L 113/68 100 10/18/16 01:32 10/18/16 01:32 10/18/16 07:04 10/18/16 07:04 10/18/16 07:04 Intake & Output 10/17/16 10/18/16 10/19/16 06:59 06:59 06:59 Intake Total 4090 4862 Output Total 100 550 Balance 3990 4312 Weight 97.3 kg 99.6 kg GENERAL:Intubated HEENT: Conjunctiva clear, nonicteric, moist mucous membranes, no JVD, endotracheal tube in place RESPIRATORY: Clear to auscultation bilaterally, no wheezes, no rhonchi CARDIAC: Regular rate and rhythm, no murmurs/gallops/rubs ABDOMEN: Soft, nondistended, nontender, positive bowel sounds, no rebound, no guarding EXTREMETIES: Significant swelling to distal right lower extremity NEUROLOGIC: Sedated SKIN: Dressing to right lower extremity intact Results Laboratory Results: 10/18/16 03:10 10/18/16 07:15 10/17/16 10/17/16 10/17/16 04:46 18:17 19:58 WBC 21.1 H RBC 3.06 L Hgb 8.9 L Hct 27.1 L MCV 89 MCH 29.3 MCHC 33.0 RDW 12.3 Plt Count 324 Seg Neutrophils % Lymphocytes % Monocytes % Eosinophils % Basophils % Absolute Neutrophils Absolute Lymphocytes Absolute Monocytes Absolute Eosinophils Absolute Basophils Carbonic Acid HCO3/H2CO3 Ratio ABG pH ABG pCO2 ABG pO2 ABG HCO3 ABG O2 Saturation ABG Base Excess FiO2 Sodium Potassium Chloride Carbon Dioxide Anion Gap BUN Creatinine 1.02 Est GFR ( Amer) > 60 Est GFR (Non-Af Amer) > 60 Glucose Calcium Magnesium Triglycerides Urine Color Urine Appearance Urine pH Ur Specific [place] Urine Protein Urine Glucose (UA) Urine Ketones Urine Blood Urine Nitrite Ur Leukocyte Esterase Urine WBC (Auto) Urine RBC (Auto) Blood Type O POSITIVE Antibody Screen NEGATIVE 10/18/16 10/18/16 10/18/16 02:08 02:08 03:10 WBC 17.2 H RBC 2.82 L Hgb 8.3 L Hct 25.0 L MCV 89 MCH 29.4 MCHC 33.2 RDW 12.6 Plt Count 334 Seg Neutrophils % Not Reportable Lymphocytes % Not Reportable Monocytes % Not Reportable Eosinophils % Not Reportable Basophils % Not Reportable Absolute Neutrophils Not Reportable Absolute Lymphocytes Not Reportable Absolute Monocytes Not Reportable Absolute Eosinophils Not Reportable Absolute Basophils Not Reportable Carbonic Acid 1.30 HCO3/H2CO3 Ratio 18:1 ABG pH 7.37 ABG pCO2 43.2 ABG pO2 164.5 H ABG HCO3 24.4 ABG O2 Saturation 99.0 H ABG Base Excess -0.9 FiO2 50% Sodium Potassium Chloride Carbon Dioxide Anion Gap BUN Creatinine Est GFR ( Amer) Est GFR (Non-Af Amer) Glucose Calcium Magnesium Triglycerides Urine Color [place] Urine Appearance CLEAR Urine pH 6.0 Ur Specific [place] 1.028 Urine Protein 30 H Urine Glucose (UA) >=500 H Urine Ketones 20 H Urine Blood NEGATIVE Urine Nitrite NEGATIVE Ur Leukocyte Esterase NEGATIVE Urine WBC (Auto) 2 Urine RBC (Auto) 2 Blood Type Antibody Screen 10/18/16 10/18/16 03:10 07:15 WBC RBC Hgb Hct MCV MCH MCHC RDW Plt Count Seg Neutrophils % Lymphocytes % Monocytes % Eosinophils % Basophils % Absolute Neutrophils Absolute Lymphocytes Absolute Monocytes Absolute Eosinophils Absolute Basophils Carbonic Acid HCO3/H2CO3 Ratio ABG pH ABG pCO2 ABG pO2 ABG HCO3 ABG O2 Saturation ABG Base Excess FiO2 Sodium 129.6 L 132.9 L Potassium 4.2 4.2 Chloride 97 L 97 L Carbon Dioxide 23 25 Anion Gap 10 11 BUN 26 H 25 H Creatinine 1.08 1.01 Est GFR ( Amer) > 60 > 60 Est GFR (Non-Af Amer) > 60 > 60 Glucose 322 H 255 H Calcium 9.0 9.3 Magnesium 2.1 Triglycerides 316 H Urine Color Urine Appearance Urine pH Ur Specific [place] Urine Protein Urine Glucose (UA) Urine Ketones Urine Blood Urine Nitrite Ur Leukocyte Esterase Urine WBC (Auto) Urine RBC (Auto) Blood Type Antibody Screen 10/16/16 01:50 Clean Catch Midstream Urine Culture - Final Mixed Urogenital Jennifer Impressions: Venous Doppler Study 10/16/16 00:00 IMPRESSION: NO EVIDENCE OF DVT OR SVT IN THE RIGHT LEG. Lower Extremity MRI 10/17/16 00:00 IMPRESSION: Air and fluid in the prepatellar bursa with extensive surrounding cellulitis in the anterior knee soft tissues. Muscle edema involving the vastus medialis inferior aspect, and distal aspect medial head biceps femoris. Muscle edema in the tibialis anterior. These findings are worrisome for myositis. No definite intramuscular abscess is identified. Knee joint effusion without gross evidence of intra-articular air by MRI. Chest X-Ray 10/18/16 00:00 IMPRESSION: Mild cardiomegaly. Mild bibasilar atelectasis. Support devices in expected locations. Assessment & Plan - Diagnosis (1) Respiratory failure, post-operative Is this a current diagnosis for this admission?: YesPlan: Currently on mechanical ventilation. Patient can probably extubate today. Dr. Madrigal of pulmonary medicine following. (2) Sepsis Is this a current diagnosis for this admission?: YesPlan: Secondary to right lower extremity cellulitis. (3) Cellulitis of right lower extremity Is this a current diagnosis for this admission?: YesPlan: Continue IV Zosyn and IV vancomycin. Status post incision and drainage on 10/17/2016 Dr. Hood of surgery. Wound care per surgery recommendations. (4) Alcohol abuse Is this a current diagnosis for this admission?: YesPlan: Continue to monitor for signs of withdrawal. As needed Ativan. Thiamine. (5) Hypertension Is this a current diagnosis for this admission?: Yes (6) Hyponatremia Is this a current diagnosis for this admission?: YesPlan: Likely secondary to alcohol abuse. Should correct with alcohol cessation. (7) Elevated liver function tests Is this a current diagnosis for this admission?: YesPlan: Likely secondary to alcohol use. Viral hepatitis panel negative. (8) Hyperglycemia due to type 2 diabetes mellitus Qualifiers: Diabetes mellitus assisted insulin use: with watermelon inspector use Qualified Code(s): E11.65 - Type 2 diabetes mellitus with hyperglycemia Is this a current diagnosis for this admission?: YesPlan: Patient started on insulin drip by surgery. We will continue this for now until patient extubated and taking oral intake. - Time Critical Time spent with patient: 35 or more minutes
[2016-10-18] MEDS: DOCUSATE SODIUM 100 MG CAPSULE PO SCH ×2 (09:23→17:45)
[2016-10-18] MEDS: NORMAL SALINE 1000 ML 1,000 ML IV PRN (09:39)
[2016-10-18] MEDS: CARVEDILOL 12.5 MG TABLET PO SCH ×2 (09:39→23:16)
[2016-10-18] MEDS: THIAMINE HCL 100 MG TABLET PO SCH (09:39)
[2016-10-18] MEDS: VANCOMYCIN HCL 1,500 MG in DEXTROSE 5%-WATER 250 ML IV SCH ×2 (10:51→23:19)
[2016-10-18 12:23] LABS: ANION GAP 11 (5-19); BLOOD UREA NITROGEN 24 mg/dL (7-20); CALCIUM 9.4 mg/dL (8.4-10.2); CARBON DIOXIDE 26 mmol/L (22-30); CHLORIDE 100 mmol/L (98-107); CREATININE RESULT 1.06 mg/dL (0.52-1.25); GLUCOSE 182 mg/dL (75-110); POTASSIUM 4.1 mmol/L (3.6-5.0); SODIUM 136.7 mmol/L (137-145)
--- NOTE | 2016-10-18 12:45 | PDOC CONSULTATION ---
Consultation Consult Date: 10/18/16 Attending physician:: JOSE RAMON AGUIRRE Consult reason:: Respiratory failure History of Present Illness Admission Date/PCP: 10/16/16 01:42 History of Present Illness: GERMÁN WING is a 60 year old male with a past medical history of hypertension and diabetes who has been in his usual state of health until approximately 5 days ago. During an RV trip to [place] patient noted right leg swelling and pain prompting him to seek evaluation in the emergency room. He denies previous episode chest pain shortness of breath or cough. He has not been in brackish water or taking antibiotics recently. In the emergency room he was found to have leukocytosis and markedly swelling of his right leg with swelling of the knee joint, several open ulcers without exudate and chronic skin changes. Patient endorses bilateral calf pain with ambulation relieved by rest which has been going on for months. Admittedly he does not check his blood sugar and is found to be greater than 400. Past Medical History Cardiac Medical History: Reports: Hypertension Endocrine Medical History: Reports: Diabetes Mellitus Type 2 Social History Information Source: Relative, [facility] Records Lives with: Family Smoking Status: Never Smoker Frequency of Alcohol Use: None Hx Recreational Drug Use: No Drugs: None Hx Prescription Drug Abuse: No - Advance Directive Resuscitation Status: Full Code Family History Family History: DM, Hypertension Parental Family History Reviewed: No Children Family History Reviewed: No Sibling(s) Family History Reviewed.: No Medication/Allergy Home Medications: Carvedilol [Coreg 12.5 mg Tablet] 12.5 mg PO Q12 10/16/16 Hydrochlorothiazide [Hydrodiuril 12.5 mg Capsule] 12.5 mg PO DAILY 10/16/16 Insulin Glargine,Hum.rec.anlog [Lantus Solostar] 30 units MOTUWETHFR@0800 Allergies/Adverse Reactions: No Known Allergies Allergy (Verified 10/16/16 04:30) Review of Systems ROS unobtainable: Due to endotracheal tube Physical Exam Vital Signs: Temp Pulse Resp BP Pulse Ox 99.3 F 76 14 113/69 99 10/18/16 07:54 10/18/16 08:00 10/18/16 07:54 10/18/16 07:54 10/18/16 08:07 Intake & Output 10/17/16 10/18/16 10/19/16 06:59 06:59 06:59 Intake Total 4090 4862 Output Total 100 550 150 Balance 3990 4312 -150 Weight 97.3 kg 99.6 kg General appearance: PRESENT: no acute distress, well-developed, well-nourished Head exam: PRESENT: atraumatic, normocephalic Eye exam: PRESENT: conjunctiva pale Mouth exam: PRESENT: dry mucosa, neck supple, other - ET tube in place Neck exam: ABSENT: carotid bruit, JVD, lymphadenopathy, thyromegaly Respiratory exam: PRESENT: decreased breath sounds, prolonged expiratory phas, rhonchi, symmetrical, unlabored Cardiovascular exam: PRESENT: RRR, +S1, +S2 Pulses: PRESENT: normal radial pulses GI/Abdominal exam: PRESENT: normal bowel sounds, soft. ABSENT: distended, guarding, mass, organolmegaly, rebound, tenderness Rectal exam: PRESENT: deferred Gentrourinary exam: PRESENT: indwelling catheter Extremities exam: PRESENT: other - Surgical extremities right distal right lower lobe dressing intact Skin exam: PRESENT: warm Results Laboratory Results: 10/18/16 03:10 10/18/16 07:15 10/17/16 10/17/16 10/17/16 04:46 18:17 19:58 WBC 21.1 H RBC 3.06 L Hgb 8.9 L Hct 27.1 L MCV 89 MCH 29.3 MCHC 33.0 RDW 12.3 Plt Count 324 Seg Neutrophils % Lymphocytes % Monocytes % Eosinophils % Basophils % Absolute Neutrophils Absolute Lymphocytes Absolute Monocytes Absolute Eosinophils Absolute Basophils Carbonic Acid HCO3/H2CO3 Ratio ABG pH ABG pCO2 ABG pO2 ABG HCO3 ABG O2 Saturation ABG Base Excess FiO2 Sodium Potassium Chloride Carbon Dioxide Anion Gap BUN Creatinine 1.02 Est GFR ( Amer) > 60 Est GFR (Non-Af Amer) > 60 Glucose Calcium Magnesium Triglycerides Urine Color Urine Appearance Urine pH Ur Specific [place] Urine Protein Urine Glucose (UA) Urine Ketones Urine Blood Urine Nitrite Ur Leukocyte Esterase Urine WBC (Auto) Urine RBC (Auto) Blood Type O POSITIVE Antibody Screen NEGATIVE 10/18/16 10/18/16 10/18/16 02:08 02:08 03:10 WBC 17.2 H RBC 2.82 L Hgb 8.3 L Hct 25.0 L MCV 89 MCH 29.4 MCHC 33.2 RDW 12.6 Plt Count 334 Seg Neutrophils % Not Reportable Lymphocytes % Not Reportable Monocytes % Not Reportable Eosinophils % Not Reportable Basophils % Not Reportable Absolute Neutrophils Not Reportable Absolute Lymphocytes Not Reportable Absolute Monocytes Not Reportable Absolute Eosinophils Not Reportable Absolute Basophils Not Reportable Carbonic Acid 1.30 HCO3/H2CO3 Ratio 18:1 ABG pH 7.37 ABG pCO2 43.2 ABG pO2 164.5 H ABG HCO3 24.4 ABG O2 Saturation 99.0 H ABG Base Excess -0.9 FiO2 50% Sodium Potassium Chloride Carbon Dioxide Anion Gap BUN Creatinine Est GFR ( Amer) Est GFR (Non-Af Amer) Glucose Calcium Magnesium Triglycerides Urine Color [place] Urine Appearance CLEAR Urine pH 6.0 Ur Specific [place] 1.028 Urine Protein 30 H Urine Glucose (UA) >=500 H Urine Ketones 20 H Urine Blood NEGATIVE Urine Nitrite NEGATIVE Ur Leukocyte Esterase NEGATIVE Urine WBC (Auto) 2 Urine RBC (Auto) 2 Blood Type Antibody Screen 10/18/16 10/18/16 03:10 07:15 WBC RBC Hgb Hct MCV MCH MCHC RDW Plt Count Seg Neutrophils % Lymphocytes % Monocytes % Eosinophils % Basophils % Absolute Neutrophils Absolute Lymphocytes Absolute Monocytes Absolute Eosinophils Absolute Basophils Carbonic Acid HCO3/H2CO3 Ratio ABG pH ABG pCO2 ABG pO2 ABG HCO3 ABG O2 Saturation ABG Base Excess FiO2 Sodium 129.6 L 132.9 L Potassium 4.2 4.2 Chloride 97 L 97 L Carbon Dioxide 23 25 Anion Gap 10 11 BUN 26 H 25 H Creatinine 1.08 1.01 Est GFR ( Amer) > 60 > 60 Est GFR (Non-Af Amer) > 60 > 60 Glucose 322 H 255 H Calcium 9.0 9.3 Magnesium 2.1 Triglycerides 316 H Urine Color Urine Appearance Urine pH Ur Specific [place] Urine Protein Urine Glucose (UA) Urine Ketones Urine Blood Urine Nitrite Ur Leukocyte Esterase Urine WBC (Auto) Urine RBC (Auto) Blood Type Antibody Screen 10/16/16 01:50 Clean Catch Midstream Urine Culture - Final Mixed Urogenital Jennifer Impressions: Venous Doppler Study 10/16/16 00:00 IMPRESSION: NO EVIDENCE OF DVT OR SVT IN THE RIGHT LEG. Lower Extremity MRI 10/17/16 00:00 IMPRESSION: Air and fluid in the prepatellar bursa with extensive surrounding cellulitis in the anterior knee soft tissues. Muscle edema involving the vastus medialis inferior aspect, and distal aspect medial head biceps femoris. Muscle edema in the tibialis anterior. These findings are worrisome for myositis. No definite intramuscular abscess is identified. Knee joint effusion without gross evidence of intra-articular air by MRI. Chest X-Ray 10/18/16 00:00 IMPRESSION: Mild cardiomegaly. Mild bibasilar atelectasis. Support devices in expected locations. Assessment & Plan - Diagnosis (1) Cellulitis of right lower extremity Is this a current diagnosis for this admission?: Yes (2) Respiratory failure, post-operative Is this a current diagnosis for this admission?: YesPlan: Proceed to extubate and maintain on BiPAP if necessary radiographically patient has some atelectasis - Time Critical Time spent with patient: 25-34 minutes - 50 minutes
[2016-10-18 15:42] LABS: ANION GAP 7 (5-19); BLOOD UREA NITROGEN 24 mg/dL (7-20); CALCIUM 9.4 mg/dL (8.4-10.2); CARBON DIOXIDE 26 mmol/L (22-30); CHLORIDE 100 mmol/L (98-107); CREATININE RESULT 0.99 mg/dL (0.52-1.25); GLUCOSE 128 mg/dL (75-110); POTASSIUM 4.5 mmol/L (3.6-5.0); SODIUM 133.2 mmol/L (137-145)
[2016-10-18] MEDS: INSULIN LISPRO 100 UNIT/ML 3 ML VIAL SUBCUT PRN ×2 (17:45→23:17)
--- NOTE | 2016-10-18 20:14 | PROGRESS NOTE E ---
Progress Note NAME: GERMÁN WING : 1955 AGE: 60Y DATE: 10/18/2016 ROOM: 330 SUBJECTIVE: This is his first postoperative day post incision and drainage and debridement of right knee and lower leg abscess and anterolateral fasciotomy. The patient extubated this morning. OBJECTIVE: He has low-grade fever of 101. He denies any significant pain. The right thigh swelling has somewhat subsided compared to the left thigh, and it is a lot softer. The right lower leg just slightly less inflamed and edematous. Right foot is warm. Dressing is intact. His white count is somewhat decreased to 17,000 from 21,000 yesterday. PLAN: The patient to continue IV antibiotics. He will need change of dressings possibly in the OR for postoperative day #2 tomorrow. DICTATING PHYSICIAN: JOSE RAMON AGUIRRE M.D. [id number] PHY#: [id number] ID: [id number] JOB#: [id number] ACCT: [id number] cc: >
[2016-10-18] MEDS ORDERED: INSULIN GLARGINE,HUM.REC.ANLOG 300 UNIT/3 ML INSULN.PEN SUBCUT SCH (22:00)
[2016-10-19] MEDS: PIPERACILLIN SODIUM/TAZOBACTAM 3.375 GM in NORMAL SALINE 100 ML IV SCH ×4 (01:04→17:38)
[2016-10-19 06:26] LABS: HEMATOCRIT 26.5 % (37.9-51.0); HEMOGLOBIN 8.6 g/dL (13.5-17.0); HGB HCT DIFFERENCE -0.7; MEAN CORPUSCULAR HEMOGLOBIN 29.3 pg (27.0-33.4); MEAN CORPUSCULAR HGB CONC 32.6 g/dL (32.0-36.0); MEAN CORPUSCULAR VOLUME 90 fl (80-97); RED BLOOD COUNT 2.95 10^6/uL (4.35-5.55); RED CELL DISTRIBUTION WIDTH 12.5 % (11.5-14.0); WHITE BLOOD COUNT 16.4 10^3/uL (4.0-10.5)
[2016-10-19 06:43] LABS: ANION GAP 11 (5-19); BLOOD UREA NITROGEN 24 mg/dL (7-20); CALCIUM 9.1 mg/dL (8.4-10.2); CARBON DIOXIDE 23 mmol/L (22-30); CHLORIDE 99 mmol/L (98-107); CREATININE RESULT 0.92 mg/dL (0.52-1.25); GLUCOSE 240 mg/dL (75-110); POTASSIUM 4.4 mmol/L (3.6-5.0); SODIUM 133.2 mmol/L (137-145)
[2016-10-19 06:45] LABS: ARTERIAL BLOOD O2 SATURATION 94.9 % (94-98)
[2016-10-19 07:31] LABS: APPEARANCE,URINE CLEAR; BILIRUBIN,URINE NEGATIVE (NEGATIVE); GLUCOSE, URINE >=500 mg/dL (NEGATIVE); KETONES,URINE NEGATIVE (NEGATIVE); LEUKOCYTE ESTERASE,URINE NEGATIVE (NEGATIVE); NITRITE,URINE NEGATIVE (NEGATIVE); PROTEIN,URINE 30 mg/dL (NEGATIVE); URINE SPECIFIC GRAVITY 1.026
--- NOTE | 2016-10-19 07:59 | RADIOLOGY REPORT (SQ) ---
EXAM DESCRIPTION: CHEST SINGLE VIEW COMPLETED DATE/TIME: 10/19/2016 7:49 am REASON FOR STUDY: resp fail COMPARISON: Portable chest x-ray 10/18/2016. EXAM PARAMETERS: NUMBER OF VIEWS: One view. TECHNIQUE: Single frontal radiographic view of the chest acquired. RADIATION DOSE: NA LIMITATIONS: Monitoring wires are overlying the patient's chest. FINDINGS: LUNGS AND PLEURA: There are bibasilar ground-glass opacities. No pleural effusion or pneu mothorax. MEDIASTINUM AND HILAR STRUCTURES: No masses. Contour normal. HEART AND VASCULAR STRUCTURES: The heart is mildly enlarged. No evidence for failure. BONES: No acute findings. HARDWARE: The endotracheal tube and the NG tube have been removed. IMPRESSION: Bibasilar ground-glass opacities, may represent atelectasis or pneumonia. Mild cardiome oliver. TECHNICAL DOCUMENTATION: JOB ID: [id number]
[2016-10-19] MEDS: INSULIN LISPRO 100 UNIT/ML 3 ML VIAL SUBCUT PRN ×3 (08:15→22:56)
--- NOTE | 2016-10-19 08:19 | PDOC PROGRESS REPORT ---
Subjective Progress Note for:: 10/19/16 Subjective:: Pt is w/o c/o Physical Exam Vital Signs: Temp Pulse Resp BP Pulse Ox 99.0 F 99 18 141/68 H 96 10/19/16 08:05 10/19/16 08:05 10/19/16 08:05 10/19/16 08:05 10/19/16 08:05 Intake & Output 10/18/16 10/19/16 10/20/16 06:59 06:59 06:59 Intake Total 4862 1617 Output Total 3550 865 Balance 1312 1652 Weight 99.6 kg 103.4 kg General appearance: PRESENT: no acute distress Extremities exam: PRESENT: joint swelling - Will take pt. to OR tday for dressing change., +2 edema. ABSENT: calf tenderness Results Laboratory Results: 10/19/16 05:33 10/19/16 05:33 10/17/16 10/18/16 10/18/16 19:58 11:39 14:45 WBC RBC Hgb Hct MCV MCH MCHC RDW Plt Count Carbonic Acid HCO3/H2CO3 Ratio ABG pH ABG pCO2 ABG pO2 ABG HCO3 ABG O2 Saturation ABG Base Excess FiO2 Sodium 136.7 L 133.2 L Potassium 4.1 4.5 Chloride 100 100 Carbon Dioxide 26 26 Anion Gap 11 7 BUN 24 H 24 H Creatinine 1.06 0.99 Est GFR ( Amer) > 60 > 60 Est GFR (Non-Af Amer) > 60 > 60 Glucose 182 H 128 H Calcium 9.4 9.4 Urine Color Urine Appearance Urine pH Ur Specific [place] Urine Protein Urine Glucose (UA) Urine Ketones Urine Blood Urine Nitrite Ur Leukocyte Esterase Urine WBC (Auto) Urine RBC (Auto) Blood Type O POSITIVE Antibody Screen NEGATIVE 10/18/16 10/19/16 10/19/16 23:30 05:33 05:33 WBC 16.4 H RBC 2.95 L Hgb 8.6 L Hct 26.5 L MCV 90 MCH 29.3 MCHC 32.6 RDW 12.5 Plt Count 398 Carbonic Acid HCO3/H2CO3 Ratio ABG pH ABG pCO2 ABG pO2 ABG HCO3 ABG O2 Saturation ABG Base Excess FiO2 Sodium Cancelled 133.2 L Potassium Cancelled 4.4 Chloride Cancelled 99 Carbon Dioxide Cancelled 23 Anion Gap Cancelled 11 BUN Cancelled 24 H Creatinine Cancelled 0.92 Est GFR ( Amer) Cancelled > 60 Est GFR (Non-Af Amer) Cancelled > 60 Glucose Cancelled 240 H Calcium Cancelled 9.1 Urine Color Urine Appearance Urine pH Ur Specific [place] Urine Protein Urine Glucose (UA) Urine Ketones Urine Blood Urine Nitrite Ur Leukocyte Esterase Urine WBC (Auto) Urine RBC (Auto) Blood Type Antibody Screen 10/19/16 10/19/16 06:30 07:05 WBC RBC Hgb Hct MCV MCH MCHC RDW Plt Count Carbonic Acid 1.12 HCO3/H2CO3 Ratio 22:1 ABG pH 7.45 ABG pCO2 37.3 ABG pO2 70.7 L ABG HCO3 25.1 ABG O2 Saturation 94.9 ABG Base Excess 1.0 FiO2 ROOM AIR Sodium Potassium Chloride Carbon Dioxide Anion Gap BUN Creatinine Est GFR ( Amer) Est GFR (Non-Af Amer) Glucose Calcium Urine Color [place] Urine Appearance CLEAR Urine pH 6.0 Ur Specific [place] 1.026 Urine Protein 30 H Urine Glucose (UA) >=500 H Urine Ketones NEGATIVE Urine Blood SMALL H Urine Nitrite NEGATIVE Ur Leukocyte Esterase NEGATIVE Urine WBC (Auto) 1 Urine RBC (Auto) 7 Blood Type Antibody Screen Impressions: Venous Doppler Study 10/16/16 00:00 IMPRESSION: NO EVIDENCE OF DVT OR SVT IN THE RIGHT LEG. Lower Extremity MRI 10/17/16 00:00 IMPRESSION: Air and fluid in the prepatellar bursa with extensive surrounding cellulitis in the anterior knee soft tissues. Muscle edema involving the vastus medialis inferior aspect, and distal aspect medial head biceps femoris. Muscle edema in the tibialis anterior. These findings are worrisome for myositis. No definite intramuscular abscess is identified. Knee joint effusion without gross evidence of intra-articular air by MRI. Chest X-Ray 10/19/16 06:00 IMPRESSION: Bibasilar ground-glass opacities, may represent atelectasis or pneumonia. Mild cardiomegaly.
[2016-10-19] MEDS: ENOXAPARIN SODIUM INJ 40 MG/0.4 ML DISP.SYRIN SUBCUT SCH ×2 (08:29→13:40)
[2016-10-19] MEDS ORDERED: SILVER SULFADIAZINE 1% CREAM 25 GM ONE (08:31)
[2016-10-19] MEDS ORDERED: MIDAZOLAM 2 MG/2 ML INJ ONE (08:57)
[2016-10-19] MEDS ORDERED: FENTANYL CITRATE INJ/PF 250 MCG/5 ML AMPULE ONE (08:57)
[2016-10-19] MEDS ORDERED: MORPHINE SULFATE 10 MG/ML INJ ONE (08:58)
[2016-10-19] MEDS ORDERED: PROPOFOL INJ 200 MG/20 ML VIAL IV ONE (08:58)
[2016-10-19] MEDS ORDERED: FENTANYL CITRATE INJ/PF 100 MCG/2 ML AMPUL IV PRN ×3 (09:46)
[2016-10-19] MEDS ORDERED: DIPHENHYDRAMINE HCL 50 MG/ML VIAL IV PRN (09:46)
[2016-10-19] MEDS ORDERED: MEPERIDINE HCL/PF INJ 25 MG/1 ML DISP.SYRIN IV PRN (09:46)
[2016-10-19] MEDS ORDERED: MORPHINE SULFATE 10 MG/ML INJ IV PRN (09:46)
[2016-10-19] MEDS ORDERED: PROMETHAZINE HCL INJ 25 MG/1 ML VIAL IV PRN (09:46)
--- NOTE | 2016-10-19 10:58 | Brief Operative Note ---
BRIEF OPERATIVE REPORT DATE OF SURGERY: 10/19/16 TIME OF SURGERY: 11:00 PREOPERATIVE DIAGNOSIS: S/P Kentrell-lateral fasciotomy POSTOPERATIVE DIAGNOSIS: Same SURGEON: AURELIA LRASEN FINDINGS: Limited liquefaction necrosis and superficial exudate. COMPLICATIONS: None ESTIMATED BLOOD LOSS: 2cc. TISSUE REMOVED OR ALTERED: Necrotic Tissue and exudate TECHNICAL PROCEDURE: Debridement of RLE wound with dressing change, post kentrell- lateral fasciotomy
--- NOTE | 2016-10-19 11:33 | OPERATIVE REPORT E ---
Operative Report NAME: GERMÁN WING : 1955 AGE: 60Y DATE OF SURGERY: 10/19/2016 ROOM: 330 PREOPERATIVE DIAGNOSIS: Status post fasciotomy for myositis of the right lower extremity. POSTOPERATIVE DIAGNOSIS: Status post fasciotomy for myositis of the right lower extremity. PROCEDURE: Dressing change and debridement of necrotic tissue and exudative tissue and liquefactive necrosis of a limited degree over the right lower extremity fasciotomy wound. SURGEON: AURELIA LARSEN M.D. ANESTHESIA: General. REPLACEMENT: Crystalloids. DRAINS: None. COMPLICATIONS: None. CONDITION: Stable. 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 Patient underwent this procedure by Dr. Hood a few days ago. Patient now is brought to the operating room for a dressing change and wound debridement. PROCEDURE: The patient was brought to the operating room suite and placed in a supine position on the operating room table. Monitoring devices were attached. IV sedation was administered followed by the induction of general endotracheal anesthesia. The patient's right lower extremity dressing was removed for dressing change. The patient was noted to have limited superficial areas of exudate and liquefactive necrosis. These areas were debrided and drained. After draining the areas of concern and debriding the areas of liquefactive necrosis we then controlled bleeding using cautery. When hemostasis was assured we then placed ACTICOAT dressing throughout all wounds, and 4 x 4s, Kerlix and Jeremias bandage wrap were then applied. The patient tolerated the procedure well. Sponge and instrument count was correct. The patient was discharged to the PACU in stable condition. DICTATING PHYSICIAN: AURELIA LARSEN M.D. [id number] PHY#: [id number] ID: [id number] JOB#: [id number] ACCT: [id number] cc:AURELIA LARSEN M.D. >
[2016-10-19] MEDS ORDERED: LIDOCAINE 2% INJ-PF (20 MG/ML) 10 ML AMPUL ONE (13:20)
[2016-10-19] MEDS ORDERED: GLYCOPYRROLATE INJ 0.4 MG/2 ML VIAL ONE (13:20)
[2016-10-19] MEDS ORDERED: ONDANSETRON HCL INJ/PF 4 MG/2 ML SDV ONE (13:20)
[2016-10-19] MEDS ORDERED: SUCCINYLCHOLINE CHLORIDE INJ 200 MG/10 ML VIAL ONE (13:20)
[2016-10-19] MEDS ORDERED: METOCLOPRAMIDE HCL INJ/PF 10 MG/2 ML SDV ONE (13:20)
[2016-10-19] MEDS: DOCUSATE SODIUM 100 MG CAPSULE PO SCH ×2 (13:40→17:38)
[2016-10-19] MEDS: THIAMINE HCL 100 MG TABLET PO SCH (13:40)
[2016-10-19] MEDS: VANCOMYCIN HCL 1,500 MG in DEXTROSE 5%-WATER 250 ML IV SCH ×2 (13:40→22:15)
[2016-10-19] MEDS: CARVEDILOL 12.5 MG TABLET PO SCH ×2 (13:40→21:47)
--- NOTE | 2016-10-19 14:43 | PDOC PROGRESS REPORT ---
Subjective Progress Note for:: 10/19/16 Subjective:: Patient sitting up in bed eating lunch. He was taken back to the OR today for further evaluation and debridement of his wound. He denies hallucination, anxiety. He denies fever, chills, chest pain, shortness of breath. Physical Exam Vital Signs: Temp Pulse Resp BP Pulse Ox 98.4 F 79 18 171/77 H 91 L 10/19/16 12:53 10/19/16 13:14 10/19/16 12:53 10/19/16 12:53 10/19/16 12:53 Intake & Output 10/18/16 10/19/16 10/20/16 06:59 06:59 06:59 Intake Total 4862 2517 990 Output Total 3550 865 250 Balance 1312 1652 740 Weight 99.6 kg 103.4 kg GENERAL: No acute distress HEENT: Conjunctiva clear, nonicteric, moist mucous membranes, no JVD, midline trachea RESPIRATORY: Clear to auscultation bilaterally, no wheezes, no rhonchi CARDIAC: Regular rate and rhythm, no murmurs/gallops/rubs ABDOMEN: Soft, nondistended, nontender, positive bowel sounds, no rebound, no guarding EXTREMETIES: dressing to RLE intact NEUROLOGIC: Alert, oriented to person/place/time, CN's grossly intact, no focal deficits PSYCH: Normal mood, normal affect Results Laboratory Results: 10/19/16 05:33 10/19/16 05:33 10/18/16 10/18/16 10/19/16 14:45 23:30 05:33 WBC 16.4 H RBC 2.95 L Hgb 8.6 L Hct 26.5 L MCV 90 MCH 29.3 MCHC 32.6 RDW 12.5 Plt Count 398 Carbonic Acid HCO3/H2CO3 Ratio ABG pH ABG pCO2 ABG pO2 ABG HCO3 ABG O2 Saturation ABG Base Excess FiO2 Sodium 133.2 L Cancelled Potassium 4.5 Cancelled Chloride 100 Cancelled Carbon Dioxide 26 Cancelled Anion Gap 7 Cancelled BUN 24 H Cancelled Creatinine 0.99 Cancelled Est GFR ( Amer) > 60 Cancelled Est GFR (Non-Af Amer) > 60 Cancelled Glucose 128 H Cancelled Calcium 9.4 Cancelled Urine Color Urine Appearance Urine pH Ur Specific [place] Urine Protein Urine Glucose (UA) Urine Ketones Urine Blood Urine Nitrite Ur Leukocyte Esterase Urine WBC (Auto) Urine RBC (Auto) 10/19/16 10/19/16 10/19/16 05:33 06:30 07:05 WBC RBC Hgb Hct MCV MCH MCHC RDW Plt Count Carbonic Acid 1.12 HCO3/H2CO3 Ratio 22:1 ABG pH 7.45 ABG pCO2 37.3 ABG pO2 70.7 L ABG HCO3 25.1 ABG O2 Saturation 94.9 ABG Base Excess 1.0 FiO2 ROOM AIR Sodium 133.2 L Potassium 4.4 Chloride 99 Carbon Dioxide 23 Anion Gap 11 BUN 24 H Creatinine 0.92 Est GFR ( Amer) > 60 Est GFR (Non-Af Amer) > 60 Glucose 240 H Calcium 9.1 Urine Color [place] Urine Appearance CLEAR Urine pH 6.0 Ur Specific [place] 1.026 Urine Protein 30 H Urine Glucose (UA) >=500 H Urine Ketones NEGATIVE Urine Blood SMALL H Urine Nitrite NEGATIVE Ur Leukocyte Esterase NEGATIVE Urine WBC (Auto) 1 Urine RBC (Auto) 7 Impressions: Venous Doppler Study 10/16/16 00:00 IMPRESSION: NO EVIDENCE OF DVT OR SVT IN THE RIGHT LEG. Lower Extremity MRI 10/17/16 00:00 IMPRESSION: Air and fluid in the prepatellar bursa with extensive surrounding cellulitis in the anterior knee soft tissues. Muscle edema involving the vastus medialis inferior aspect, and distal aspect medial head biceps femoris. Muscle edema in the tibialis anterior. These findings are worrisome for myositis. No definite intramuscular abscess is identified. Knee joint effusion without gross evidence of intra-articular air by MRI. Chest X-Ray 10/19/16 06:00 IMPRESSION: Bibasilar ground-glass opacities, may represent atelectasis or pneumonia. Mild cardiomegaly. Assessment & Plan - Diagnosis (1) Respiratory failure, post-operative Is this a current diagnosis for this admission?: YesPlan: Resolved (2) Sepsis Is this a current diagnosis for this admission?: YesPlan: Secondary to right lower extremity cellulitis. (3) Cellulitis of right lower extremity Is this a current diagnosis for this admission?: YesPlan: Continue IV Zosyn and IV vancomycin. Status post incision and drainage on 10/17/2016 Dr. Hood of surgery. Status post revision on 10/19/[address] Ch of surgery. Wound care per surgery recommendations. (4) Alcohol abuse Is this a current diagnosis for this admission?: YesPlan: Continue to monitor for signs of withdrawal. As needed Ativan. Thiamine. (5) Hypertension Is this a current diagnosis for this admission?: Yes (6) Hyponatremia Is this a current diagnosis for this admission?: YesPlan: Likely secondary to alcohol abuse. Should correct with alcohol cessation. (7) Elevated liver function tests Is this a current diagnosis for this admission?: YesPlan: Likely secondary to alcohol use. Viral hepatitis panel negative. (8) Hyperglycemia due to type 2 diabetes mellitus Qualifiers: Diabetes mellitus termite control servicer insulin use: with fci use Qualified Code(s): E11.65 - Type 2 diabetes mellitus with hyperglycemia Is this a current diagnosis for this admission?: YesPlan: Increase Lantus to 40 units subcu nightly. Sliding scale insulin coverage. - Time Time Spent with patient: 35 or more minutes
[2016-10-19] MEDS: INSULIN GLARGINE,HUM.REC.ANLOG 300 UNIT/3 ML INSULN.PEN SUBCUT SCH (22:56)
[2016-10-20] MEDS: PIPERACILLIN SODIUM/TAZOBACTAM 3.375 GM in NORMAL SALINE 100 ML IV SCH ×5 (00:51→23:30)
[2016-10-20 06:13] LABS: ALANINE AMINOTRANSFERASE 30 U/L (21-72); ALBUMIN 2.5 g/dL (3.5-5.0); ALKALINE PHOSPHATASE 256 U/L (38-126); ANION GAP 9 (5-19); ASPARTATE AMINO TRANSFERASE 16 U/L (17-59); BILIRUBIN,DIRECT 0.9 mg/dL (0.0-0.4); BILIRUBIN,TOTAL 1.6 mg/dL (0.2-1.3); BLOOD UREA NITROGEN 25 mg/dL (7-20); CALCIUM 9.1 mg/dL (8.4-10.2); CARBON DIOXIDE 25 mmol/L (22-30); CHLORIDE 98 mmol/L (98-107); CREATININE RESULT 1.38 mg/dL (0.52-1.25); GLUCOSE 219 mg/dL (75-110); POTASSIUM 4.5 mmol/L (3.6-5.0); SODIUM 132.3 mmol/L (137-145); TOTAL PROTEIN 5.8 g/dL (6.3-8.2)
[2016-10-20 06:14] LABS: HEMATOCRIT 25.1 % (37.9-51.0); HEMOGLOBIN 8.4 g/dL (13.5-17.0); HGB HCT DIFFERENCE 0.1; MEAN CORPUSCULAR HEMOGLOBIN 29.6 pg (27.0-33.4); MEAN CORPUSCULAR HGB CONC 33.5 g/dL (32.0-36.0); MEAN CORPUSCULAR VOLUME 89 fl (80-97); RED BLOOD COUNT 2.84 10^6/uL (4.35-5.55); RED CELL DISTRIBUTION WIDTH 12.8 % (11.5-14.0)
[2016-10-20 06:50] LABS: BAND NEUTROPHILS % (MANUAL) 1 % (3-5); BASOPHILS % (MANUAL) 1 % (0-2); EOSINOPHILS % (MANUAL) 0 % (0-6); LYMPHOCYTES % (MANUAL) 11 % (13-45); TOTAL CELLS COUNTED 100
[2016-10-20 06:51] LABS: POIKILOCYTOSIS SLIGHT; POLYCHROMASIA 1+; TARGET CELLS SLIGHT; TOXIC GRANULATION 2+
--- NOTE | 2016-10-20 09:36 | PDOC PROGRESS REPORT ---
Subjective Progress Note for:: 10/20/16 Subjective:: Patient is sitting in bedside chair and has no complaints. He had a cough yesterday but this resolved. He denies fever, chills, headache, chest pain, shortness of breath, abdominal pain, nausea, vomiting. Physical Exam Vital Signs: Temp Pulse Resp BP Pulse Ox 98.1 F 81 16 149/70 H 98 10/20/16 08:06 10/20/16 08:06 10/20/16 08:06 10/20/16 08:06 10/20/16 08:06 Intake & Output 10/19/16 10/20/16 10/21/16 06:59 06:59 06:59 Intake Total 2517 2720 Output Total 865 1500 Balance 1652 1220 Weight 103.4 kg 102.1 kg GENERAL: No acute distress HEENT: Conjunctiva clear, nonicteric, moist mucous membranes, no JVD, midline trachea RESPIRATORY: Clear to auscultation bilaterally, no wheezes, no rhonchi CARDIAC: Regular rate and rhythm, no murmurs/gallops/rubs ABDOMEN: Soft, nondistended, nontender, positive bowel sounds, no rebound, no guarding EXTREMETIES: dressing to RLE intact with significant amount of purulent drainage noted NEUROLOGIC: Alert, oriented to person/place/time, CN's grossly intact, no focal deficits PSYCH: Normal mood, normal affect Results Laboratory Results: 10/20/16 05:15 10/20/16 05:15 10/20/16 10/20/16 05:15 05:15 WBC 18.0 H RBC 2.84 L Hgb 8.4 L Hct 25.1 L MCV 89 MCH 29.6 MCHC 33.5 RDW 12.8 Plt Count 450 Seg Neutrophils % Not Reportable Lymphocytes % Not Reportable Monocytes % Not Reportable Eosinophils % Not Reportable Basophils % Not Reportable Absolute Neutrophils Not Reportable Absolute Lymphocytes Not Reportable Absolute Monocytes Not Reportable Absolute Eosinophils Not Reportable Absolute Basophils Not Reportable Sodium 132.3 L Potassium 4.5 Chloride 98 Carbon Dioxide 25 Anion Gap 9 BUN 25 H Creatinine 1.38 H Est GFR ( Amer) > 60 Est GFR (Non-Af Amer) 53 L Glucose 219 H Calcium 9.1 Total Bilirubin 1.6 H AST 16 L ALT 30 Alkaline Phosphatase 256 H Total Protein 5.8 L Albumin 2.5 L Impressions: Venous Doppler Study 10/16/16 00:00 IMPRESSION: NO EVIDENCE OF DVT OR SVT IN THE RIGHT LEG. Lower Extremity MRI 10/17/16 00:00 IMPRESSION: Air and fluid in the prepatellar bursa with extensive surrounding cellulitis in the anterior knee soft tissues. Muscle edema involving the vastus medialis inferior aspect, and distal aspect medial head biceps femoris. Muscle edema in the tibialis anterior. These findings are worrisome for myositis. No definite intramuscular abscess is identified. Knee joint effusion without gross evidence of intra-articular air by MRI. Chest X-Ray 10/19/16 06:00 IMPRESSION: Bibasilar ground-glass opacities, may represent atelectasis or pneumonia. Mild cardiomegaly. Assessment & Plan - Diagnosis (1) Sepsis Is this a current diagnosis for this admission?: YesPlan: Secondary to right lower extremity cellulitis. (2) Cellulitis of right lower extremity Is this a current diagnosis for this admission?: YesPlan: Wound culture growing gram-negative rods. Continue IV Zosyn. Discontinue IV vancomycin. Status post incision and drainage on 10/17/2016 Dr. Hood of surgery. Status post revision on 10/19/[address] Ch of surgery. Wound care per surgery recommendations. (3) Alcohol abuse Is this a current diagnosis for this admission?: YesPlan: Continue to monitor for signs of withdrawal. As needed Ativan. Thiamine. (4) Hypertension Is this a current diagnosis for this admission?: Yes (5) Hyponatremia Is this a current diagnosis for this admission?: YesPlan: Likely secondary to alcohol abuse. Should correct with alcohol cessation. (6) Elevated liver function tests Is this a current diagnosis for this admission?: YesPlan: Likely secondary to alcohol use. Viral hepatitis panel negative. (7) Hyperglycemia due to type 2 diabetes mellitus Qualifiers: Diabetes mellitus long term acute care registered nurse insulin use: with long term acute care registered nurse use Qualified Code(s): E11.65 - Type 2 diabetes mellitus with hyperglycemia Is this a current diagnosis for this admission?: YesPlan: Continue Lantus 40 units subcu nightly. Sliding scale insulin coverage. (8) Respiratory failure, post-operative Is this a current diagnosis for this admission?: YesPlan: Resolved - Time Time Spent with patient: 35 or more minutes
[2016-10-20] MEDS: CARVEDILOL 12.5 MG TABLET PO SCH ×2 (09:38→22:05)
[2016-10-20] MEDS: DOCUSATE SODIUM 100 MG CAPSULE PO SCH ×2 (09:38→17:18)
[2016-10-20] MEDS: THIAMINE HCL 100 MG TABLET PO SCH (09:38)
[2016-10-20] MEDS: INSULIN LISPRO 100 UNIT/ML 3 ML VIAL SUBCUT PRN ×3 (09:42→18:08)
[2016-10-20] MEDS: BENZONATATE 100 MG CAPSULE PO PRN (22:05)
--- NOTE | 2016-10-20 22:05 | PDOC PROGRESS REPORT ---
Subjective Progress Note for:: 10/20/16 Subjective:: The patient is lying in bed without complaints. Physical Exam Vital Signs: Temp Pulse Resp BP Pulse Ox 98.2 F 85 20 132/67 H 96 10/20/16 20:23 10/20/16 20:23 10/20/16 20:23 10/20/16 20:23 10/20/16 20:23 Intake & Output 10/19/16 10/20/16 10/21/16 06:59 06:59 06:59 Intake Total 2517 2720 750 Output Total 865 1500 400 Balance 1652 1220 350 Weight 103.4 kg 102.1 kg Extremities exam: PRESENT: other - Patient's dressing is intact with minimal drainage. Results Laboratory Results: 10/20/16 05:15 10/20/16 05:15 10/20/16 10/20/16 05:15 05:15 WBC 18.0 H RBC 2.84 L Hgb 8.4 L Hct 25.1 L MCV 89 MCH 29.6 MCHC 33.5 RDW 12.8 Plt Count 450 Seg Neutrophils % Not Reportable Lymphocytes % Not Reportable Monocytes % Not Reportable Eosinophils % Not Reportable Basophils % Not Reportable Absolute Neutrophils Not Reportable Absolute Lymphocytes Not Reportable Absolute Monocytes Not Reportable Absolute Eosinophils Not Reportable Absolute Basophils Not Reportable Sodium 132.3 L Potassium 4.5 Chloride 98 Carbon Dioxide 25 Anion Gap 9 BUN 25 H Creatinine 1.38 H Est GFR ( Amer) > 60 Est GFR (Non-Af Amer) 53 L Glucose 219 H Calcium 9.1 Total Bilirubin 1.6 H AST 16 L ALT 30 Alkaline Phosphatase 256 H Total Protein 5.8 L Albumin 2.5 L Impressions: Venous Doppler Study 10/16/16 00:00 IMPRESSION: NO EVIDENCE OF DVT OR SVT IN THE RIGHT LEG. Lower Extremity MRI 10/17/16 00:00 IMPRESSION: Air and fluid in the prepatellar bursa with extensive surrounding cellulitis in the anterior knee soft tissues. Muscle edema involving the vastus medialis inferior aspect, and distal aspect medial head biceps femoris. Muscle edema in the tibialis anterior. These findings are worrisome for myositis. No definite intramuscular abscess is identified. Knee joint effusion without gross evidence of intra-articular air by MRI. Chest X-Ray 10/19/16 06:00 IMPRESSION: Bibasilar ground-glass opacities, may represent atelectasis or pneumonia. Mild cardiomegaly. Assessment & Plan - Plan Summary Plan Summary: Acticoat wound dressing can be retained for 3-5 days. Anticipate dressing change early next week.
[2016-10-20] MEDS: INSULIN GLARGINE,HUM.REC.ANLOG 300 UNIT/3 ML INSULN.PEN SUBCUT SCH (22:07)
[2016-10-21 04:57] LABS: ABSOLUTE BASOPHILS # (AUTO) 0.1 10^3/uL (0.0-0.2); ABSOLUTE EOSINOPHILS # (AUTO) 0.1 10^3/uL (0.0-0.6); ABSOLUTE LYMPHOCYTES (AUTO) 1.5 10^3/uL (0.5-4.7); ABSOLUTE MONOCYTES (AUTO) 1.9 10^3/uL (0.1-1.4); ABSOLUTE NEUT (AUTO) 11.8 10^3/uL (1.7-8.2); BASOPHILS % (AUTO) 0.9 % (0-2); EOSINOPHILS % (AUTO) 0.7 % (0-6); HEMATOCRIT 27.2 % (37.9-51.0); HEMOGLOBIN 8.8 g/dL (13.5-17.0); HGB HCT DIFFERENCE -0.8; LYMPHOCYTES % (AUTO) 9.7 % (13-45); MEAN CORPUSCULAR HGB CONC 32.4 g/dL (32.0-36.0); MEAN CORPUSCULAR VOLUME 90 fl (80-97); MONOCYTES % (AUTO) 12.2 % (3-13); RED BLOOD COUNT 3.04 10^6/uL (4.35-5.55); SEGMENTED NEUTROPHILS % (AUTO) 76.5 % (42-78); WHITE BLOOD COUNT 15.4 10^3/uL (4.0-10.5)
[2016-10-21 05:03] LABS: ANION GAP 10 (5-19); BLOOD UREA NITROGEN 26 mg/dL (7-20); CALCIUM 9.1 mg/dL (8.4-10.2); CARBON DIOXIDE 24 mmol/L (22-30); CHLORIDE 100 mmol/L (98-107); CREATININE RESULT 1.33 mg/dL (0.52-1.25); GLUCOSE 118 mg/dL (75-110); SODIUM 134.1 mmol/L (137-145)
[2016-10-21] MEDS: PIPERACILLIN SODIUM/TAZOBACTAM 3.375 GM in NORMAL SALINE 100 ML IV SCH ×4 (05:50→23:21)
[2016-10-21] MEDS: ENOXAPARIN SODIUM INJ 40 MG/0.4 ML DISP.SYRIN SUBCUT SCH (08:54)
[2016-10-21] MEDS: THIAMINE HCL 100 MG TABLET PO SCH (09:45)
[2016-10-21] MEDS: CARVEDILOL 12.5 MG TABLET PO SCH ×2 (09:45→23:20)
[2016-10-21] MEDS: DOCUSATE SODIUM 100 MG CAPSULE PO SCH ×2 (09:45→17:09)
--- NOTE | 2016-10-21 10:24 | PDOC PROGRESS REPORT ---
Subjective Progress Note for:: 10/21/16 Subjective:: Patient states he is ambulating without discomfort. He states that he has had no further drainage from his right leg wound. He has no fevers or chills. He is inquiring when he can go home. Physical Exam Vital Signs: Temp Pulse Resp BP Pulse Ox 98.2 F 80 14 141/75 H 100 10/21/16 08:06 10/21/16 08:06 10/21/16 08:06 10/21/16 08:06 10/21/16 08:06 Intake & Output 10/20/16 10/21/16 10/22/16 06:59 06:59 06:59 Intake Total 2720 1987 Output Total 1500 400 Balance 1220 1587 Weight 102.1 kg 102.3 kg GENERAL: No acute distress HEENT: Conjunctiva clear, nonicteric, moist mucous membranes, no JVD, midline trachea RESPIRATORY: Clear to auscultation bilaterally, no wheezes, no rhonchi CARDIAC: Regular rate and rhythm, no murmurs/gallops/rubs ABDOMEN: Soft, nondistended, nontender, positive bowel sounds, no rebound, no guarding EXTREMETIES: dressing to RLE intact with significant amount of purulent drainage noted NEUROLOGIC: Alert, oriented to person/place/time, CN's grossly intact, no focal deficits PSYCH: Normal mood, normal affect Results Laboratory Results: 10/21/16 04:30 10/21/16 04:30 10/21/16 10/21/16 04:30 04:30 WBC 15.4 H RBC 3.04 L Hgb 8.8 L Hct 27.2 L MCV 90 MCH 29.0 MCHC 32.4 RDW 13.0 Plt Count 461 H Seg Neutrophils % 76.5 Lymphocytes % 9.7 L Monocytes % 12.2 Eosinophils % 0.7 Basophils % 0.9 Absolute Neutrophils 11.8 H Absolute Lymphocytes 1.5 Absolute Monocytes 1.9 H Absolute Eosinophils 0.1 Absolute Basophils 0.1 Sodium 134.1 L Potassium 4.0 Chloride 100 Carbon Dioxide 24 Anion Gap 10 BUN 26 H Creatinine 1.33 H Est GFR ( Amer) > 60 Est GFR (Non-Af Amer) 55 L Glucose 118 H Calcium 9.1 10/18/16 00:03 Gram Stain - Preliminary Leg - Abscess Wound Culture - Preliminary Gram Negative Rods 10/16/16 01:27 Blood Culture - Final Blood NO GROWTH IN 5 DAYS 10/16/16 00:17 Blood Culture - Final Blood NO GROWTH IN 5 DAYS Impressions: Venous Doppler Study 10/16/16 00:00 IMPRESSION: NO EVIDENCE OF DVT OR SVT IN THE RIGHT LEG. Lower Extremity MRI 10/17/16 00:00 IMPRESSION: Air and fluid in the prepatellar bursa with extensive surrounding cellulitis in the anterior knee soft tissues. Muscle edema involving the vastus medialis inferior aspect, and distal aspect medial head biceps femoris. Muscle edema in the tibialis anterior. These findings are worrisome for myositis. No definite intramuscular abscess is identified. Knee joint effusion without gross evidence of intra-articular air by MRI. Chest X-Ray 10/19/16 06:00 IMPRESSION: Bibasilar ground-glass opacities, may represent atelectasis or pneumonia. Mild cardiomegaly. Assessment & Plan - Diagnosis (1) Sepsis Is this a current diagnosis for this admission?: YesPlan: Secondary to right lower extremity cellulitis. (2) Cellulitis of right lower extremity Is this a current diagnosis for this admission?: YesPlan: Wound culture growing gram-negative rods. Continue IV Zosyn. Status post incision and drainage on 10/17/2016 Dr. Hood of surgery. Status post revision on 10/19/[address] Ch of surgery. Wound care per surgery recommendations. Patient is medically stable to discharge home once cleared by surgery. [facility]. We will need to arrange home health nursing for dressing changes. (3) Alcohol abuse Is this a current diagnosis for this admission?: Yes (4) Hypertension Is this a current diagnosis for this admission?: Yes (5) Hyponatremia Is this a current diagnosis for this admission?: Yes (6) Elevated liver function tests Is this a current diagnosis for this admission?: Yes (7) Hyperglycemia due to type 2 diabetes mellitus Qualifiers: Diabetes mellitus correction insulin use: with plaster mixer use Qualified Code(s): E11.65 - Type 2 diabetes mellitus with hyperglycemia Is this a current diagnosis for this admission?: YesPlan: Continue Lantus 40 units subcu nightly. Sliding scale insulin coverage. (8) Respiratory failure, post-operative Is this a current diagnosis for this admission?: Yes - Time Time Spent with patient: 25-34 minutes
[2016-10-21] MEDS: INSULIN GLARGINE,HUM.REC.ANLOG 300 UNIT/3 ML INSULN.PEN SUBCUT SCH (23:20)
[2016-10-21] MEDS: BENZONATATE 100 MG CAPSULE PO PRN (23:47)
[2016-10-21] MEDS: LORAZEPAM INJ 2 MG/1 ML VIAL IV PRN (23:48)
[2016-10-21] MEDS: OXYCODONE HCL IR 5 MG TABLET PO PRN (23:48)
[2016-10-22 05:07] LABS: HEMATOCRIT 26.4 % (37.9-51.0); HEMOGLOBIN 8.7 g/dL (13.5-17.0); HGB HCT DIFFERENCE -0.3; MEAN CORPUSCULAR HEMOGLOBIN 29.7 pg (27.0-33.4); MEAN CORPUSCULAR HGB CONC 33.1 g/dL (32.0-36.0); MEAN CORPUSCULAR VOLUME 90 fl (80-97); RED BLOOD COUNT 2.93 10^6/uL (4.35-5.55); RED CELL DISTRIBUTION WIDTH 13.2 % (11.5-14.0); WHITE BLOOD COUNT 13.2 10^3/uL (4.0-10.5)
[2016-10-22 05:25] LABS: ANION GAP 10 (5-19); BLOOD UREA NITROGEN 27 mg/dL (7-20); CALCIUM 8.9 mg/dL (8.4-10.2); CARBON DIOXIDE 24 mmol/L (22-30); CHLORIDE 101 mmol/L (98-107); CREATININE RESULT 1.41 mg/dL (0.52-1.25); GLUCOSE 231 mg/dL (75-110); POTASSIUM 4.7 mmol/L (3.6-5.0); SODIUM 134.8 mmol/L (137-145)
[2016-10-22] MEDS: OXYCODONE HCL IR 5 MG TABLET PO PRN (05:47)
[2016-10-22] MEDS: PIPERACILLIN SODIUM/TAZOBACTAM 3.375 GM in NORMAL SALINE 100 ML IV SCH (05:48)
[2016-10-22] MEDS: LORAZEPAM INJ 2 MG/1 ML VIAL IV PRN ×2 (05:56→22:01)
[2016-10-22] MEDS: DOCUSATE SODIUM 100 MG CAPSULE PO SCH ×2 (10:28→22:00)
[2016-10-22] MEDS: CARVEDILOL 12.5 MG TABLET PO SCH ×2 (10:28→22:02)
[2016-10-22] MEDS: THIAMINE HCL 100 MG TABLET PO SCH (10:29)
[2016-10-22] MEDS: ENOXAPARIN SODIUM INJ 40 MG/0.4 ML DISP.SYRIN SUBCUT SCH (10:29)
--- NOTE | 2016-10-22 11:58 | PROGRESS NOTE E ---
Progress Note NAME: GERMÁN WING : 1955 AGE: 60Y DATE: 10/22/2016 ROOM: 403 SUBJECTIVE: Patient sitting in chair; no acute distress. PHYSICAL EXAMINATION: Lower extremities wrapped with dressings from previous wrapping. There is some seepage through the dressing. IMPRESSION: COMPLEX SOFT-TISSUE WOUND, LOWER EXTREMITY. STATUS POST DEBRIDEMENT WITH CLINICAL EVIDENCE OF SEPSIS CONTROL. RECOMMENDATIONS: Patient will undergo dressing change tomorrow; likely placement of wound VAC on outpatient basis. This is discussed at length with patient's primary care team. DICTATING PHYSICIAN: JENARO GONZALEZ M.D. [id number] PHY#: [id number] ID: [id number] JOB#: [id number] ACCT: [id number] cc: >
--- NOTE | 2016-10-22 13:25 | PDOC PROGRESS REPORT ---
Subjective Progress Note for:: 10/22/16 Subjective:: Patient has no new complaints. Patient denies fever, chills, headache, new focal weakness, chest pain, shortness of breath, abdominal pain, nausea, vomiting, diarrhea, constipation. Physical Exam Vital Signs: Temp Pulse Resp BP Pulse Ox 97.7 F 76 16 116/67 100 10/22/16 07:52 10/22/16 07:52 10/22/16 07:52 10/22/16 07:52 10/22/16 07:52 Intake & Output 10/21/16 10/22/16 10/23/16 06:59 06:59 06:59 Intake Total 1987 1200 Output Total 400 Balance 1587 1200 Weight 102.3 kg 102.3 kg GENERAL: No acute distress HEENT: Conjunctiva clear, nonicteric, moist mucous membranes, no JVD, midline trachea RESPIRATORY: Clear to auscultation bilaterally, no wheezes, no rhonchi CARDIAC: Regular rate and rhythm, no murmurs/gallops/rubs ABDOMEN: Soft, nondistended, nontender, positive bowel sounds, no rebound, no guarding EXTREMETIES: dressing to RLE intact with significant amount of purulent drainage noted NEUROLOGIC: Alert, oriented to person/place/time, CN's grossly intact, no focal deficits PSYCH: Normal mood, normal affect Results Laboratory Results: 10/22/16 04:03 10/22/16 04:03 10/22/16 10/22/16 04:03 04:03 WBC 13.2 H RBC 2.93 L Hgb 8.7 L Hct 26.4 L MCV 90 MCH 29.7 MCHC 33.1 RDW 13.2 Plt Count 546 H Sodium 134.8 L Potassium 4.7 Chloride 101 Carbon Dioxide 24 Anion Gap 10 BUN 27 H Creatinine 1.41 H Est GFR ( Amer) > 60 Est GFR (Non-Af Amer) 51 L Glucose 231 H Calcium 8.9 10/18/16 00:03 Leg - Abscess Gram Stain - Final 10/18/16 00:03 Leg - Abscess Wound Culture - Final Proteus Vulgaris Bacteroides Fragilis Group Peptostreptococcus Species Impressions: Venous Doppler Study 10/16/16 00:00 IMPRESSION: NO EVIDENCE OF DVT OR SVT IN THE RIGHT LEG. Lower Extremity MRI 10/17/16 00:00 IMPRESSION: Air and fluid in the prepatellar bursa with extensive surrounding cellulitis in the anterior knee soft tissues. Muscle edema involving the vastus medialis inferior aspect, and distal aspect medial head biceps femoris. Muscle edema in the tibialis anterior. These findings are worrisome for myositis. No definite intramuscular abscess is identified. Knee joint effusion without gross evidence of intra-articular air by MRI. Chest X-Ray 10/19/16 06:00 IMPRESSION: Bibasilar ground-glass opacities, may represent atelectasis or pneumonia. Mild cardiomegaly. Assessment & Plan - Diagnosis (1) Sepsis Is this a current diagnosis for this admission?: YesPlan: Secondary to right lower extremity cellulitis. Resolving. (2) Cellulitis of right lower extremity Is this a current diagnosis for this admission?: YesPlan: Wound culture growing Proteus, Bacteroides, Peptostreptococcus-susceptibility reviewed. Discontinue IV Zosyn. Start oral Levaquin and oral Flagyl. Status post incision and drainage on 10/17/2016 Dr. Hood of surgery. Status post revision on 10/19/[address] Ch of surgery. Surgery planning dressing change tomorrow and wound VAC placement. Patient can discharge home tomorrow after dressing change. [facility]. We will need to arrange home health nursing for wound VAC dressing changes. (3) Alcohol abuse Is this a current diagnosis for this admission?: Yes (4) Hypertension Is this a current diagnosis for this admission?: Yes (5) Hyponatremia Is this a current diagnosis for this admission?: YesPlan: Likely secondary to alcohol abuse. Should correct with alcohol cessation. (6) Elevated liver function tests Is this a current diagnosis for this admission?: YesPlan: Likely secondary to alcohol use. Viral hepatitis panel negative. Liver function test improving with abstinence from alcohol. (7) Hyperglycemia due to type 2 diabetes mellitus Qualifiers: Diabetes mellitus radar tester insulin use: with radar tester use Qualified Code(s): E11.65 - Type 2 diabetes mellitus with hyperglycemia Is this a current diagnosis for this admission?: YesPlan: Continue Lantus 40 units subcu nightly. Sliding scale insulin coverage. (8) Respiratory failure, post-operative Is this a current diagnosis for this admission?: Yes - Time Time Spent with patient: 35 or more minutes Anticipated discharge: Home with Homehealth Within: within 24 hours
[2016-10-22] MEDS ORDERED: MAG HYDROX/AL HYDROX/SIMETH SUSP 30 ML UDCUP PO PRN (13:53)
[2016-10-22] MEDS ORDERED: MAGNESIUM HYDROXIDE SUSP 30 ML UDCUP PO PRN (13:54)
[2016-10-22] MEDS: LEVOFLOXACIN 750 MG TABLET PO SCH (14:20)
[2016-10-22] MEDS: METRONIDAZOLE 500 MG TABLET PO SCH ×2 (14:20→22:00)
[2016-10-22] MEDS: HYDROMORPHONE HCL INJ/PF 2 MG/ML AMPULE IV PRN (22:01)
[2016-10-22] MEDS: BENZONATATE 100 MG CAPSULE PO PRN (22:02)
[2016-10-22] MEDS: INSULIN LISPRO 100 UNIT/ML 3 ML VIAL SUBCUT PRN (22:05)
[2016-10-22] MEDS ORDERED: INSULIN GLARGINE,HUM.REC.ANLOG 300 UNIT/3 ML INSULN.PEN SUBCUT ONE (22:22)
[2016-10-22] MEDS: INSULIN GLARGINE,HUM.REC.ANLOG 300 UNIT/3 ML INSULN.PEN SUBCUT SCH (22:32)
[2016-10-23 04:49] LABS: ABSOLUTE BASOPHILS # (AUTO) 0.1 10^3/uL (0.0-0.2); ABSOLUTE EOSINOPHILS # (AUTO) 0.1 10^3/uL (0.0-0.6); ABSOLUTE LYMPHOCYTES (AUTO) 1.4 10^3/uL (0.5-4.7); ABSOLUTE MONOCYTES (AUTO) 1.7 10^3/uL (0.1-1.4); BASOPHILS % (AUTO) 0.9 % (0-2); EOSINOPHILS % (AUTO) 0.8 % (0-6); HEMATOCRIT 26.6 % (37.9-51.0); HEMOGLOBIN 8.5 g/dL (13.5-17.0); HGB HCT DIFFERENCE -1.1; LYMPHOCYTES % (AUTO) 10.3 % (13-45); MEAN CORPUSCULAR HEMOGLOBIN 28.8 pg (27.0-33.4); MEAN CORPUSCULAR HGB CONC 31.9 g/dL (32.0-36.0); MEAN CORPUSCULAR VOLUME 90 fl (80-97); MONOCYTES % (AUTO) 12.8 % (3-13); RED BLOOD COUNT 2.94 10^6/uL (4.35-5.55); RED CELL DISTRIBUTION WIDTH 12.8 % (11.5-14.0); SEGMENTED NEUTROPHILS % (AUTO) 75.2 % (42-78); WHITE BLOOD COUNT 13.3 10^3/uL (4.0-10.5)
[2016-10-23 05:05] LABS: ANION GAP 10 (5-19); BLOOD UREA NITROGEN 23 mg/dL (7-20); CARBON DIOXIDE 24 mmol/L (22-30); CHLORIDE 102 mmol/L (98-107); CREATININE RESULT 1.25 mg/dL (0.52-1.25); GLUCOSE 156 mg/dL (75-110); POTASSIUM 4.7 mmol/L (3.6-5.0); SODIUM 136.3 mmol/L (137-145)
[2016-10-23] MEDS: METRONIDAZOLE 500 MG TABLET PO SCH ×2 (06:03→15:06)
[2016-10-23] MEDS: LORAZEPAM INJ 2 MG/1 ML VIAL IV PRN (06:03)
[2016-10-23] MEDS: THIAMINE HCL 100 MG TABLET PO SCH (09:51)
[2016-10-23] MEDS: CARVEDILOL 12.5 MG TABLET PO SCH (09:51)
[2016-10-23] MEDS: ENOXAPARIN SODIUM INJ 40 MG/0.4 ML DISP.SYRIN SUBCUT SCH (09:51)
[2016-10-23] MEDS: DOCUSATE SODIUM 100 MG CAPSULE PO SCH (09:52)
[2016-10-23 14:30] VITALS: BP 156/71
[2016-10-23] MEDS: LEVOFLOXACIN 750 MG TABLET PO SCH (15:06)
--- NOTE | 2016-10-25 19:50 | PDOC DISCHARGE SUMMARY ---
General - Admit/Disc Date/PCP Admission Date/Primary Care Provider: 10/16/16 01:42 Discharge Date: 10/23/16 - Discharge Diagnosis (1) Sepsis Is this a current diagnosis for this admission?: Yes (2) Cellulitis of right lower extremity Is this a current diagnosis for this admission?: Yes (3) Respiratory failure, post-operative Is this a current diagnosis for this admission?: Yes (4) Alcohol abuse Is this a current diagnosis for this admission?: Yes (5) Cardiomegaly Is this a current diagnosis for this admission?: Yes (6) Elevated liver function tests Is this a current diagnosis for this admission?: Yes (7) Hyperglycemia due to type 2 diabetes mellitus Is this a current diagnosis for this admission?: Yes (8) Hypertension Is this a current diagnosis for this admission?: Yes (9) Hyponatremia Is this a current diagnosis for this admission?: Yes (11) Obesity (BMI 30.0-34.9) Is this a current diagnosis for this admission?: Yes - Additional Information Resuscitation Status: Full Code Discharge Diet: Cardiac, Diabetic Discharge Activity: Activity As Tolerated, Balance Activity w/Rest, Keep Legs Elevated Home Medications: Carvedilol [Coreg 12.5 mg Tablet] 12.5 mg PO Q12 10/16/16 Hydrochlorothiazide [Hydrodiuril 12.5 mg Capsule] 12.5 mg PO DAILY 10/16/16 Docusate Sodium [Colace 100 mg Capsule] 100 mg PO BID #60 capsule 10/23/16 Insulin Glargine,Hum.rec.anlog [Lantus Insulin 100 Unit/mL] 40 unit SUBCUT QHS # 1 insuln.pen 10/23/16 Levofloxacin [Levaquin 750 mg Tablet] 750 mg PO DAILY@1500 #10 tablet 10/23/16 Metronidazole [Flagyl 500 mg Tablet] 500 mg PO Q8 #30 tablet 10/23/16 Oxycodone HCl [Oxy-Ir 5 mg Tablet] 10 mg PO Q6HP PRN #20 tablet 10/23/16 Thiamine HCl [Thiamine 100 mg Tablet] 100 mg PO DAILY #30 tablet 10/23/16 History of Present Illness History of Present Illness: GERMÁN WING is a 60 year old male with a past medical history of hypertension and diabetes who has been in his usual state of health until approximately 5 days ago. During an RV trip to [place] patient noted right leg swelling and pain prompting him to seek evaluation in the emergency room. He denies previous episode chest pain shortness of breath or cough. He has not been in brackish water or taking antibiotics recently. In the emergency room he was found to have leukocytosis and markedly swelling of his right leg with swelling of the knee joint, several open ulcers without exudate and chronic skin changes. Patient endorses bilateral calf pain with ambulation relieved by rest which has been going on for months. Admittedly he does not check his blood sugar and is found to be greater than 400. Hospital Course Hospital Course: Presented with sepsis secondary to cellulitis and concommittant uncontrolled diabetes mellitus. Patient was admittedly noncompliant with his diabetic regimen. Venous Doppler performed on 10/16/2016 was negative for DVT. Patient had I&D on 10/17/[address] Ortiz surgery and a subsequent revision on [address] camargo for surgery., Patient was found to have compartment syndrome and was taken for fasciotomy and drainage on 10/17/2016 and remained intubated after surgery. Successfully extubated the following day and continued to improve. His wound required revision on 10/19/[address] Camargo. Wound was growing Proteus mirabilis, Bacteroides, and peptostreptococcus. A wound VAC was established for him as well as home care. He has been advised to follow-up with his primary care physician. Patient also suffered during his hospitalization with alcohol withdrawal. This was treated with as needed Ativan as well as thiamine and folic acid. Patient was counseled to stop drinking. Patient in regards to his cellulitis and uncontrolled diabetes mellitus was advised to comply with the regimen set out for him. His Lantus was modified here due to his deeds for improved glucose control. Patient was doing well and discharged in stable condition. Physical Exam Vital Signs: Temp Pulse Resp BP Pulse Ox 98.4 F 80 20 158/67 H 99 10/23/16 08:00 10/23/16 08:00 10/23/16 08:00 10/23/16 08:00 10/23/16 08:00 Intake & Output 10/22/16 10/23/16 10/24/16 06:59 06:59 06:59 Intake Total 1200 2162 Balance 1200 2162 Weight 102.3 kg 102.3 kg Exam: GENERAL: No acute distress HEENT: Conjunctiva clear, nonicteric, moist mucous membranes, no JVD, midline trachea RESPIRATORY: Clear to auscultation bilaterally, no wheezes, no rhonchi CARDIAC: Regular rate and rhythm, no murmurs/gallops/rubs ABDOMEN: Soft, nondistended, nontender, positive bowel sounds, no rebound, no guarding EXTREMETIES: dressing to RLE intact NEUROLOGIC: Alert, oriented to person/place/time, CN's grossly intact, no focal deficits PSYCH: Normal mood, normal affect Results Laboratory Results: 10/23/16 04:00 10/23/16 04:00 10/23/16 10/23/16 04:00 04:00 WBC 13.3 H RBC 2.94 L Hgb 8.5 L Hct 26.6 L MCV 90 MCH 28.8 MCHC 31.9 L RDW 12.8 Plt Count 548 H Seg Neutrophils % 75.2 Lymphocytes % 10.3 L Monocytes % 12.8 Eosinophils % 0.8 Basophils % 0.9 Absolute Neutrophils 10.0 H Absolute Lymphocytes 1.4 Absolute Monocytes 1.7 H Absolute Eosinophils 0.1 Absolute Basophils 0.1 Sodium 136.3 L Potassium 4.7 Chloride 102 Carbon Dioxide 24 Anion Gap 10 BUN 23 H Creatinine 1.25 Est GFR ( Amer) > 60 Est GFR (Non-Af Amer) 59 L Glucose 156 H Calcium 9.0 Impressions: Venous Doppler Study 10/16/16 00:00 IMPRESSION: NO EVIDENCE OF DVT OR SVT IN THE RIGHT LEG. Lower Extremity MRI 10/17/16 00:00 IMPRESSION: Air and fluid in the prepatellar bursa with extensive surrounding cellulitis in the anterior knee soft tissues. Muscle edema involving the vastus medialis inferior aspect, and distal aspect medial head biceps femoris. Muscle edema in the tibialis anterior. These findings are worrisome for myositis. No definite intramuscular abscess is identified. Knee joint effusion without gross evidence of intra-articular air by MRI. Chest X-Ray 10/19/16 06:00 IMPRESSION: Bibasilar ground-glass opacities, may represent atelectasis or pneumonia. Mild cardiomegaly. Qualifiers PATEINT BEING DISCHARGED WITH ANY OF THE FOLLOWING DIAGNOSIS?: No Plan Time Spent: Greater than 30 Minutes
--- NOTE | 2016-11-05 12:55 | PDOC PROGRESS REPORT ---
Subjective Progress Note for:: 10/22/16 Subjective:: w/o complaints Physical Exam Vital Signs: Temp Pulse Resp BP Pulse Ox 98.2 F 71 17 156/71 H 98 10/23/16 14:28 10/23/16 14:28 10/23/16 14:28 10/23/16 14:28 10/23/16 14:28 Intake & Output 10/22/16 10/23/16 10/24/16 06:59 06:59 06:59 Intake Total 1200 2162 Balance 1200 2162 Weight 102.3 kg 102.3 kg General appearance: PRESENT: no acute distress, disheveled, well-developed Head exam: PRESENT: atraumatic, normocephalic Eye exam: PRESENT: conjunctiva pale, EOMI Mouth exam: PRESENT: moist, neck supple Neck exam: ABSENT: carotid bruit, JVD, lymphadenopathy, thyromegaly Respiratory exam: PRESENT: decreased breath sounds, prolonged expiratory phas, rhonchi, symmetrical Cardiovascular exam: PRESENT: RRR, +S1, +S2 Pulses: PRESENT: normal radial pulses GI/Abdominal exam: PRESENT: normal bowel sounds, soft. ABSENT: distended, guarding, mass, organolmegaly, rebound, tenderness Rectal exam: PRESENT: deferred Extremities exam: PRESENT: other - Right lower extremity cellulitis Neurological exam: PRESENT: awake Skin exam: PRESENT: dry, warm Results Laboratory Results: 10/23/16 04:00 10/23/16 04:00 10/23/16 10/23/16 04:00 04:00 WBC 13.3 H RBC 2.94 L Hgb 8.5 L Hct 26.6 L MCV 90 MCH 28.8 MCHC 31.9 L RDW 12.8 Plt Count 548 H Seg Neutrophils % 75.2 Lymphocytes % 10.3 L Monocytes % 12.8 Eosinophils % 0.8 Basophils % 0.9 Absolute Neutrophils 10.0 H Absolute Lymphocytes 1.4 Absolute Monocytes 1.7 H Absolute Eosinophils 0.1 Absolute Basophils 0.1 Sodium 136.3 L Potassium 4.7 Chloride 102 Carbon Dioxide 24 Anion Gap 10 BUN 23 H Creatinine 1.25 Est GFR ( Amer) > 60 Est GFR (Non-Af Amer) 59 L Glucose 156 H Calcium 9.0 Impressions: Venous Doppler Study 10/16/16 00:00 IMPRESSION: NO EVIDENCE OF DVT OR SVT IN THE RIGHT LEG. Lower Extremity MRI 10/17/16 00:00 IMPRESSION: Air and fluid in the prepatellar bursa with extensive surrounding cellulitis in the anterior knee soft tissues. Muscle edema involving the vastus medialis inferior aspect, and distal aspect medial head biceps femoris. Muscle edema in the tibialis anterior. These findings are worrisome for myositis. No definite intramuscular abscess is identified. Knee joint effusion without gross evidence of intra-articular air by MRI. Chest X-Ray 10/19/16 06:00 IMPRESSION: Bibasilar ground-glass opacities, may represent atelectasis or pneumonia. Mild cardiomegaly. Assessment & Plan - Diagnosis (1) Cellulitis of right lower extremity Is this a current diagnosis for this admission?: Yes (2) Respiratory failure, post-operative Is this a current diagnosis for this admission?: YesPlan: stable
--- NOTE | 2016-11-05 12:57 | PDOC PROGRESS REPORT ---
Subjective Progress Note for:: 10/23/16 Subjective:: w/o complaints Physical Exam Vital Signs: Temp Pulse Resp BP Pulse Ox 98.2 F 71 17 156/71 H 98 10/23/16 14:28 10/23/16 14:28 10/23/16 14:28 10/23/16 14:28 10/23/16 14:28 Intake & Output 10/22/16 10/23/16 10/24/16 06:59 06:59 06:59 Intake Total 1200 2162 Balance 1200 2162 Weight 102.3 kg 102.3 kg General appearance: PRESENT: no acute distress, cooperative, disheveled, obese, well-developed Head exam: PRESENT: atraumatic, normocephalic Eye exam: PRESENT: conjunctiva pale, EOMI Mouth exam: PRESENT: dry mucosa, neck supple, tongue midline Neck exam: ABSENT: carotid bruit, JVD, lymphadenopathy, thyromegaly Respiratory exam: PRESENT: decreased breath sounds, prolonged expiratory phas, rhonchi, symmetrical, unlabored Cardiovascular exam: PRESENT: RRR, +S1, +S2 Pulses: PRESENT: normal radial pulses GI/Abdominal exam: PRESENT: normal bowel sounds, soft. ABSENT: distended, guarding, mass, organolmegaly, rebound, tenderness Rectal exam: PRESENT: deferred Extremities exam: PRESENT: other - Right lower extremity cellulitis Neurological exam: PRESENT: awake Psychiatric exam: PRESENT: normal mood Skin exam: PRESENT: dry, warm Results Laboratory Results: 10/23/16 04:00 10/23/16 04:00 10/23/16 10/23/16 04:00 04:00 WBC 13.3 H RBC 2.94 L Hgb 8.5 L Hct 26.6 L MCV 90 MCH 28.8 MCHC 31.9 L RDW 12.8 Plt Count 548 H Seg Neutrophils % 75.2 Lymphocytes % 10.3 L Monocytes % 12.8 Eosinophils % 0.8 Basophils % 0.9 Absolute Neutrophils 10.0 H Absolute Lymphocytes 1.4 Absolute Monocytes 1.7 H Absolute Eosinophils 0.1 Absolute Basophils 0.1 Sodium 136.3 L Potassium 4.7 Chloride 102 Carbon Dioxide 24 Anion Gap 10 BUN 23 H Creatinine 1.25 Est GFR ( Amer) > 60 Est GFR (Non-Af Amer) 59 L Glucose 156 H Calcium 9.0 Impressions: Venous Doppler Study 10/16/16 00:00 IMPRESSION: NO EVIDENCE OF DVT OR SVT IN THE RIGHT LEG. Lower Extremity MRI 10/17/16 00:00 IMPRESSION: Air and fluid in the prepatellar bursa with extensive surrounding cellulitis in the anterior knee soft tissues. Muscle edema involving the vastus medialis inferior aspect, and distal aspect medial head biceps femoris. Muscle edema in the tibialis anterior. These findings are worrisome for myositis. No definite intramuscular abscess is identified. Knee joint effusion without gross evidence of intra-articular air by MRI. Chest X-Ray 10/19/16 06:00 IMPRESSION: Bibasilar ground-glass opacities, may represent atelectasis or pneumonia. Mild cardiomegaly. Assessment & Plan - Diagnosis (1) Cellulitis of right lower extremity Is this a current diagnosis for this admission?: Yes (2) Respiratory failure, post-operative Is this a current diagnosis for this admission?: Yes
== END 2016-10-23 13:35 | disposition home health service (06) | DRG 853 ==
LOC: ER 20:06 → EH 10-16 01:42 → UNDOADMIN 10-16 01:43 → EH 10-16 01:43 → 4S 10-16 05:48 → ICU 10-18 01:03 → 3S 10-18 18:50 → 4N 10-21 20:15
PROVIDERS: ADMIT Internal Medicine; ATTEND Internal Medicine
PROC: 0KNS0ZZ Release Right Lower Leg Muscle, Open Approach (ICD-10-PCS; 2016-10-18)
PROC: 0J9N0ZZ Drainage of Right Lower Leg Subcutaneous Tissue and Fascia, Open Approach (ICD-10-PCS; 2016-10-18)
PROC: 0JDN3ZZ Extraction of Right Lower Leg Subcutaneous Tissue and Fascia, Percutaneous Approach (ICD-10-PCS; principal; 2016-10-19 09:00)
DX: A41.9 Sepsis, unspecified organism (principal); J95.821 Acute postprocedural respiratory failure; L03.115 Cellulitis of right lower limb; E87.1 Hypo-osmolality and hyponatremia; T79.A21A Traumatic compartment syndrome of right lower extremity, initial encounter; L97.811 Non-pressure chronic ulcer of other part of right lower leg limited to breakdown of skin; B95.62 Methicillin resistant Staphylococcus aureus infection as the cause of diseases classified elsewhere; B96.5 Pseudomonas (aeruginosa) (mallei) (pseudomallei) as the cause of diseases classified elsewhere; I10 Essential (primary) hypertension; I73.9 Peripheral vascular disease, unspecified; E11.65 Type 2 diabetes mellitus with hyperglycemia; E66.9 Obesity, unspecified; Z68.30 Body mass index [BMI] 30.0-30.9, adult; Z79.4 Long term (current) use of insulin; Z79.899 Other long term (current) drug therapy
CPT/HCPCS: 01470; 36415; 36600; 71010; 80048; 80053; 80074; 80076; 80202; 81001; 82550; 82553; 82565; 82607; 82728; 82746; 82803; 82962; 83036; 83540; 83550; 83735; 84478; 84484; 85025; 85027; 85045; 85379; 86850; 86900; 86901; 86920; 87040; 87070; 87075; 87077; 87086; 87186; 87205; 93005; 93010; 93321; 93971; 94002; 94003; 94799; 99285; A6266; J0131; J0330; J1170; J1650; J1815; J2060; J2250; J2270; J2405; J2543; J2704; J2765; J3010; J3370; J3490; J7030; J7060

== ENCOUNTER 2018-04-18 11:29 | Inpatient (IN) | payer BC ==
[~2018-04-18 11:29] MED LIST: GLYCOPYRROLATE 1 MG/5 ML SYRINGE ONE; METOCLOPRAMIDE HCL INJ/PF 10 MG/2 ML SDV ONE; SUCCINYLCHOLINE CHLORIDE INJ 200 MG/10 ML VIAL ONE
--- NOTE | 2018-04-18 11:52 | ER Document Report ---
ED Medical Screen (RME) - General Chief Complaint: Skin Sore(s) Stated Complaint: OPEN SORES ON LEGS Time Seen by Provider: 04/18/18 11:43 Notes: 62 years old male with a history of diabetes presents today with chronic lower leg wounds which is going on for several weeks and currently is oozing and ulcerating. He is also having difficulty in walking feeling fatigued tired. Shortness of breath on exertion. No nausea vomiting palpitation or diaphoresis. Denies any chest pain. Bilateral swelling of both lower extremity. With chronic ulcerating wound scattered. Right knee region is the worst TRAVEL OUTSIDE OF THE [place] IN LAST 30 DAYS: No - Related Data Allergies/Adverse Reactions: No Known Allergies Allergy (Verified 04/18/18 11:29) Past Medical History - Past Medical History Cardiac Medical History: Reports: Hx Hypertension Endocrine Medical History: Reports: Hx Diabetes Mellitus Type 2 Renal/ Medical History: Denies: Hx Peritoneal Dialysis Past Surgical History: Reports: Hx Testicular Surgery - undescended 1976 - Immunizations Hx Diphtheria, Pertussis, Tetanus Vaccination: Yes Physical Exam - Vital signs Vitals: Temp Pulse Resp BP Pulse Ox 97.6 F 89 16 104/55 L 96 04/18/18 11:34 04/18/18 11:34 04/18/18 11:34 04/18/18 11:34 04/18/18 11:34 Course - Vital Signs Vital signs: Temp Pulse Resp BP Pulse Ox 97.6 F 89 16 104/55 L 96 04/18/18 11:34 04/18/18 11:34 04/18/18 11:34 04/18/18 11:34 04/18/18 11:34 Doctor's Discharge - Discharge Referrals: LOCALMD,NO [Primary Care Provider] - Follow up as needed
--- NOTE | 2018-04-18 12:44 | RADIOLOGY REPORT (SQ) ---
EXAM DESCRIPTION: CHEST 2 VIEWS COMPLETED DATE/TIME: 04/18/2018 12:33 pm REASON FOR STUDY: sob COMPARISON: None. EXAM PARAMETERS: NUMBER OF VIEWS: two views TECHNIQUE: Digital Frontal and Lateral radiographic views of the chest acquired. RADIATION DOSE: NA LIMITATIONS: Low lung volumes. FINDINGS: LUNGS AND PLEURA: No opacities, masses or pneumothorax. No pleural effusion. MEDIASTINUM AND HILAR STRUCTURES: No masses or contour abnormalities. HEART AND VASCULAR STRUCTURES: Heart normal size. No evidence for failure. BONES: No acute findings. HARDWARE: None in the chest. OTHER: No other significant finding. IMPRESSION: NO ACUTE RADIOGRAPHIC FINDING IN THE CHEST. TECHNICAL DOCUMENTATION: JOB ID: [id number] [employer]- All Rights Reserved Reading location - IP/workstation name: [email or web address]
[2018-04-18 12:45] LABS: ABSOLUTE EOSINOPHILS # (AUTO) 0.1 10^3/uL (0.0-0.6); ABSOLUTE MONOCYTES (AUTO) 1.6 10^3/uL (0.1-1.4); BASOPHILS % (AUTO) 0.3 % (0-2); EOSINOPHILS % (AUTO) 0.8 % (0-6); HEMATOCRIT 23.3 % (37.9-51.0); MEAN CORPUSCULAR HEMOGLOBIN 29.4 pg (27.0-33.4); MEAN CORPUSCULAR VOLUME 89 fl (80-97); MONOCYTES % (AUTO) 14.7 % (3-13); PLATELET COUNT 658 10^3/uL (150-450); RED BLOOD COUNT 2.61 10^6/uL (4.35-5.55); SEGMENTED NEUTROPHILS % (AUTO) 75.2 % (42-78); TOTAL CELLS COUNTED % (AUTO) 100 %; WHITE BLOOD COUNT 10.6 10^3/uL (4.0-10.5)
[2018-04-18 12:47] LABS: INTERNATIONAL RATION (INR) 1.05; PROTHROMBIN TIME 14.2 SEC (11.4-15.4)
[2018-04-18 12:53] LABS: ALANINE AMINOTRANSFERASE 14 U/L (21-72); ALBUMIN 2.9 g/dL (3.5-5.0); ALKALINE PHOSPHATASE 262 U/L (38-126); ANION GAP 15 (5-19); ASPARTATE AMINO TRANSFERASE 8 U/L (17-59); BILIRUBIN,DIRECT 0.5 mg/dL (0.0-0.4); BILIRUBIN,TOTAL 0.7 mg/dL (0.2-1.3); BLOOD UREA NITROGEN 28 mg/dL (7-20); CALCIUM 9.2 mg/dL (8.4-10.2); CARBON DIOXIDE 26 mmol/L (22-30); CHLORIDE 87 mmol/L (98-107); HEMOGLOBIN 7.7 g/dL (13.5-17.0); POTASSIUM 5.9 mmol/L (3.6-5.0); SODIUM 127.5 mmol/L (137-145); TOTAL PROTEIN 6.9 g/dL (6.3-8.2)
[2018-04-18 13:06] LABS: GLUCOSE 696 mg/dL (75-110)
[2018-04-18 13:09] LABS: FREE T3 2.86 pg/mL (2.77-5.27); FREE T4 (FREE THYROXINE) 1.71 ng/dL (0.78-2.19)
[2018-04-18] MEDS ORDERED: NORMAL SALINE 1000 ML 1,000 ML IV ONE ×2 (13:12→14:29)
[2018-04-18] MEDS ORDERED: INSULIN REG, HUMAN 100 UNIT/ML 3 ML VIAL (PYX) IV ONE (13:12)
[2018-04-18] MEDS ORDERED: DEXTROSE 40% GEL 15 GM TUBE PO PRN ×2 (13:31)
[2018-04-18] MEDS ORDERED: NORMAL SALINE 100 ML with INSULIN REGULAR, HUMAN 100 UNIT IV PRN ×2 (13:31)
[2018-04-18] MEDS ORDERED: DEXTROSE 50%-WATER 25 GM/50 ML DISP.SYRIN IV PRN ×2 (13:31)
[2018-04-18] MEDS ORDERED: GLUCAGON,HUMAN RECOMB 1 MG INJ IM PRN (13:31)
[2018-04-18] MEDS ORDERED: VANCOMYCIN HCL INJ 1000 MG VIAL IV ONE (13:32)
--- NOTE | 2018-04-18 13:37 | ER Document Report ---
ED General - General Chief Complaint: Skin Sore(s) Stated Complaint: OPEN SORES ON LEGS Time Seen by Provider: 04/18/18 11:43 Mode of Arrival: Ambulatory Information source: Patient Notes: This is a 62-year-old man with a history of insulin requiring diabetes compliance who presents to the emergency room with complaints of bleeding wounds from both lower extremities. Patient does report chills without fever. Patient states he does not take in his insulin for months. TRAVEL OUTSIDE OF THE [place] IN LAST 30 DAYS: No - HPI Onset: Last week Onset/Duration: Gradual Quality of pain: No pain Severity: None Pain Level: Denies Associated symptoms: Chills. denies: Chest pain, Fever, Shortness of breath Exacerbated by: Denies Relieved by: Denies Similar symptoms previously: Yes Recently seen / treated by doctor: No - Related Data Allergies/Adverse Reactions: lisinopril Allergy (Verified 04/18/18 11:52) Past Medical History - General Information source: Patient - Social History Smoking Status: Never Smoker Cigarette use (# per day): No Chew tobacco use (# tins/day): No Frequency of alcohol use: Social Drug Abuse: None Lives with: Family Family History: DM, Hypertension Patient has suicidal ideation: No Patient has homicidal ideation: No - Past Medical History Cardiac Medical History: Reports: Hx Hypertension Endocrine Medical History: Reports: Hx Diabetes Mellitus Type 2 Renal/ Medical History: Denies: Hx Peritoneal Dialysis Past Surgical History: Reports: Hx Testicular Surgery - undescended 1976 - Immunizations Hx Diphtheria, Pertussis, Tetanus Vaccination: Yes Review of Systems - Review of Systems Constitutional: Chills. denies: Fever EENT: No symptoms reported Cardiovascular: No symptoms reported Respiratory: No symptoms reported Gastrointestinal: No symptoms reported Genitourinary: No symptoms reported Male Genitourinary: No symptoms reported Musculoskeletal: See HPI Skin: See HPI Hematologic/Lymphatic: No symptoms reported Neurological/Psychological: No symptoms reported Physical Exam - Vital signs Vitals: Temp Pulse Resp BP Pulse Ox 97.6 F 89 16 104/55 L 96 04/18/18 11:34 04/18/18 11:34 04/18/18 11:34 04/18/18 11:34 04/18/18 11:34 Notes: Physical exam: GENERAL: he is alert and oriented x3, no acute distress HEAD: Atraumatic, normocephalic. EYES: Pupils equal round and reactive to light, extraocular movements intact, sclera anicteric, conjunctiva are normal. ENT: TMs normal, nares patent, oropharynx clear without exudates. Moist mucous membranes. NECK: Normal range of motion, supple without obvious mass or JVD. LUNGS: Breath sounds clear to auscultation bilaterally and equal. No wheezes rales or rhonchi. HEART: Regular rate and rhythm without murmurs, rubs or gallops. ABDOMEN: Soft, normoactive bowel sounds. No tenderness to palpation. No guarding, no rebound. No masses appreciated. EXTREMITIES: Right lower extremity: Patient does have fluctuance low the knee and it does not appear to be involving the joint colon extending down to the distal third of the tibia. There is expressible pus from multiple wounds. There is no tenderness. Distal pulses are intact. Left lower extremity: Patient has a fluctuant area below the knee and above the ankle along the tibia with a wound that is draining large blood clot. Distal pulses are intact. The extremity is nontender. He otherwise has movement of the lower extremity. He does have sensation. NEUROLOGICAL: Cranial nerves II through XII grossly intact. Normal speech, moving all extremities. PSYCH: Normal mood, normal affect. SKIN: As mentioned above Course - Re-evaluation Re-evalutation: 04/18/18 13:36 Wound culture sent Blood cultures sent IV antibiotics ordered Dr. Mosley notified for wound consult. IV insulin bolus followed by IV insulin drip. IV fluids 04/18/18 14:31 Patient is n.p.o. and will probably be owing to the OR for wound debridement later this evening. Patient to be admitted to the IMCU for IV insulin, IV antibiotics, IV fluid 04/18/18 20:52 Patient's medical issues at this time are as follows: 1. Infected lower extremity wounds: Patient was given IV antibiotics and will be taken to the OR for debridement. 2. Hyperglycemia with uncontrolled diabetes: Patient is noncompliant with medicines. He was given an insulin bolus and IV insulin drip. 3. Hyperkalemia: No hyper acute T waves on EKG. This will be addressed with IV fluids and IV insulin. 4. Anemia: Patient does have a history of anemia with a crit around 26. Today , his crit is 23 and is expected to drop as we fluid resuscitate him. Therefore , he is receiving transfusion with packed red blood cells. He denies any bleeding in stool or otherwise. 5. Left medial malleolar fracture: Patient has no obvious swelling over the medial malleolar is. He has no tenderness. He does note that he thought he heard a crack about a month ago and is been having difficulty putting on his shoe over that area since then. He does have significant peripheral neuropathy. So, its believe that this is not an acute fracture and it is not displaced. It should not change the plan that the patient is receiving acutely above. Or so can be consulted at a later time. - Vital Signs Vital signs: Temp Pulse Resp BP Pulse Ox 98.0 F 90 19 100/61 100 04/18/18 19:00 04/18/18 19:00 04/18/18 19:00 04/18/18 19:00 04/18/18 19:00 - Laboratory Result Diagrams: 04/18/18 12:08 04/18/18 19:00 Laboratory results interpreted by me: 04/18/18 04/18/18 04/18/18 12:08 12:08 12:08 WBC 10.6 H RBC 2.61 L Hgb 7.7 L Hct 23.3 L Plt Count 658 H Lymphocytes % 9.0 L Monocytes % 14.7 H Absolute Monocytes 1.6 H Sodium 127.5 L Potassium 5.9 H Chloride 87 L BUN 28 H Glucose 696 H* Iron 17.8 L TIBC 214 L Ferritin 749.00 H Direct Bilirubin 0.5 H AST 8 L ALT 14 L Alkaline Phosphatase 262 H Albumin 2.9 L Urine Glucose (UA) Urine Ketones Crossmatch 04/18/18 04/18/18 13:20 14:30 WBC RBC Hgb Hct Plt Count Lymphocytes % Monocytes % Absolute Monocytes Sodium Potassium Chloride BUN Glucose Iron TIBC Ferritin Direct Bilirubin AST ALT Alkaline Phosphatase Albumin Urine Glucose (UA) >=500 H Urine Ketones TRACE H Crossmatch See Detail - Diagnostic Test Radiology reviewed: Image reviewed, Reports reviewed - Left medial malleolar fracture. Medically, this is all to be old. - EKG Interpretation by Me Rate: Normal Rhythm: NSR - EKG shows normal sinus rhythm with a ventricular rate of 93, some ABA V1 V2 V3, no significant T wave elevations. It has not been having any chest pain. Critical Care Note - Critical Care Note Total time excluding time spent on procedures (mins): 85 Discharge - Discharge Clinical Impression: Hyperglycemia due to type 1 diabetes mellitus, Hyperkalemia, Infected diabetic wound lower extremity Condition: Stable Disposition: ADMITTED INPATIENT Admitting Provider: Angelitaist Niesha Cerda Unit Admitted: [facility]
--- NOTE | 2018-04-18 14:02 | PDOC CONSULTATION ---
Consultation Consult Date: 04/18/18 Attending physician:: CHRISTOPHER DIAZ Consult reason:: Lower extremity infection History of Present Illness Patient complains of: Leg pain, drainage, foul smell. History of Present Illness: GERMÁN WING is a 62 year old male Who presents to the emergency department via ground rescue complaining of 4 weeks of drainage, swelling, pain, foul smell from his lower extremities. He has a long history of medical noncompliance. He is 1/2 years status post debridement of right lower extremity soft tissue infection including fasciotomy with [facility]. Because of patient's inconsistent history, poor compliance, it is difficult to ascertain what the status the legs have been in for the last several months. He seen in the emergency department today with actively draining pus from both lower extremities with multiple wounds. Blood sugar 700 mg/dL. Patient being admitted to the internal medicine service for sepsis treatment; Surgery consulted; once patient stabilizes, anticipate taking patient to the operating room for debridement of lower extremities. Past Medical History Past Medical History: Medical noncompliance, malnutrition, hyponatremia Cardiac Medical History: Reports: Hypertension Endocrine Medical History: Reports: Diabetes Mellitus Type 2 Past Surgical History Past Surgical History: Extensive debridement soft tissue of right lower extremity 2016 [facility]ly [facility] Social History Smoking Status: Never Smoker Frequency of Alcohol Use: None Hx Recreational Drug Use: No Drugs: None Hx Prescription Drug Abuse: No Family History Family History: DM, Hypertension Parental Family History Reviewed: Yes Children Family History Reviewed: Yes Sibling(s) Family History Reviewed.: Yes Medication/Allergy Home Medications: No Home Medications 04/18/18 Allergies/Adverse Reactions: lisinopril Allergy (Verified 04/18/18 11:52) Review of Systems ROS unobtainable: Due to mental status Physical Exam Vital Signs: Temp Pulse Resp BP Pulse Ox 97.6 F 89 16 104/55 L 96 04/18/18 11:34 04/18/18 11:34 04/18/18 11:34 04/18/18 11:34 04/18/18 11:34 Intake & Output 04/17/18 04/18/18 04/19/18 06:59 06:59 06:59 Weight 89.2 kg General appearance: PRESENT: mild distress Head exam: PRESENT: normocephalic Mouth exam: PRESENT: dry mucosa Respiratory exam: PRESENT: rhonchi Cardiovascular exam: PRESENT: RRR Pulses: PRESENT: normal carotid pulses, normal radial pulses, normal femoral pulses Musculoskeletal exam: PRESENT: other - Marked swelling bilateral lower extremities from the knees to the ankle, with circumferential edema; multiple acute and chronic wounds and scar to the right lower extremity several actively draining pus; left lower extremity is edematous, chronic re-epithelialized skin anteriorly; several seropurulent wounds draining anterior crisostomo region Results Laboratory Results: 04/18/18 12:08 04/18/18 12:08 04/18/18 04/18/18 04/18/18 12:08 12:08 12:08 WBC 10.6 H RBC 2.61 L Hgb 7.7 L Hct 23.3 L MCV 89 MCH 29.4 MCHC 33.0 RDW 14.0 Plt Count 658 H Seg Neutrophils % 75.2 Lymphocytes % 9.0 L Monocytes % 14.7 H Eosinophils % 0.8 Basophils % 0.3 Absolute Neutrophils 8.0 Absolute Lymphocytes 1.0 Absolute Monocytes 1.6 H Absolute Eosinophils 0.1 Absolute Basophils 0.0 Sodium 127.5 L Potassium 5.9 H Chloride 87 L Carbon Dioxide 26 Anion Gap 15 BUN 28 H Creatinine 1.20 Est GFR ( Amer) > 60 Est GFR (Non-Af Amer) > 60 Glucose 696 H* Lactic Acid Calcium 9.2 Total Bilirubin 0.7 AST 8 L ALT 14 L Alkaline Phosphatase 262 H Total Protein 6.9 Albumin 2.9 L Free T4 1.71 Free T3 pg/mL 2.86 04/18/18 12:08 WBC RBC Hgb Hct MCV MCH MCHC RDW Plt Count Seg Neutrophils % Lymphocytes % Monocytes % Eosinophils % Basophils % Absolute Neutrophils Absolute Lymphocytes Absolute Monocytes Absolute Eosinophils Absolute Basophils Sodium Potassium Chloride Carbon Dioxide Anion Gap BUN Creatinine Est GFR ( Amer) Est GFR (Non-Af Amer) Glucose Lactic Acid 1.2 Calcium Total Bilirubin AST ALT Alkaline Phosphatase Total Protein Albumin Free T4 Free T3 pg/mL 04/18/18 12:08 NT-Pro-B Natriuret Pep 503 Impressions: Chest X-Ray 04/18/18 11:49 IMPRESSION: NO ACUTE RADIOGRAPHIC FINDING IN THE CHEST. Assessment & Plan - Diagnosis (1) Necrotizing soft tissue infection Is this a current diagnosis for this admission?: Yes Plan: Impression: Sepsis due to multiple, extensive soft tissue infections of the lower extremities Recommendations: 1. Admit, IV fluids, keep n.p.o., IV antibiotics, correct metabolic abnormalities 2. Take patient to the operating room for operative debridement as soon as patient stabilizes to begin to eradicate septic source. Patient may require sequential visits to the operating room. I explained this to the patient and his only concern was that he was hungry and wanted to know when he can eat. (2) Alcohol abuse Is this a current diagnosis for this admission?: Yes (3) Hyperglycemia due to type 2 diabetes mellitus Is this a current diagnosis for this admission?: Yes (4) Hyponatremia Is this a current diagnosis for this admission?: Yes (5) Leukocytosis Is this a current diagnosis for this admission?: Yes (6) Sepsis Is this a current diagnosis for this admission?: Yes - Time Time Spent: 30 to 50 Minutes Smoking Cessation Education: 3 to 10 minutes Medications reviewed and adjusted accordingly: Yes Anticipated discharge: Home - Inpatient Certification Based on my medical assessment, after consideration of the patient's comorbidities, presenting symptoms, or acuity I expect that the services needed warrant INPATIENT care.: Yes I certify that my determination is in accordance with my understanding of Medicare's requirements for reasonable and necessary INPATIENT services [42 CFR 412.3e].: Yes Medical Necessity: Need For IV Fluids, Need for Pain Control, Need for IV Antibiotics, Need for Surgery
[2018-04-18] MEDS ORDERED: INSULIN NPH (ISOPHANE), HUMAN 100 UNIT/ML 3 ML ONE (14:04)
[2018-04-18] MEDS ORDERED: INSULIN REG, HUMAN 100 UNIT/ML 3 ML VIAL (PYX) ONE (14:06)
--- NOTE | 2018-04-18 14:26 | RADIOLOGY REPORT (SQ) ---
EXAM DESCRIPTION: TIB FIB BILAT 2 VIEWS COMPLETED DATE/TIME: 04/18/2018 2:15 pm REASON FOR STUDY: lower extremioty wounds COMPARISON: None. NUMBER OF VIEWS: Two views. TECHNIQUE: Two radiographic images acquired of the right and left tibia and fibula to include the kn ee and ankle in at least one projection. LIMITATIONS: None. FINDINGS: MINERALIZATION: Normal. BONES: There is a comminuted fracture of the left medial malleolus. SOFT TISSUES: No obvious swelling or foreign body. OTHER: No other significant finding. IMPRESSION: Comminuted fracture of the left medial malleolus. No other significant findings. TECHNICAL DOCUMENTATION: JOB ID: [id number] [employer]- All Rights Reserved Reading location - IP/workstation name: [email or web address]
[2018-04-18] MEDS ORDERED: LIDOCAINE 1% INJ-PF (10 MG/ML) 30 ML SDV ONE (14:57)
[2018-04-18 14:58] LABS: APPEARANCE,URINE CLEAR; BILIRUBIN,URINE NEGATIVE (NEGATIVE); GLUCOSE, URINE >=500 mg/dL (NEGATIVE); KETONES,URINE TRACE mg/dL (NEGATIVE); LEUKOCYTE ESTERASE,URINE NEGATIVE (NEGATIVE); NITRITE,URINE NEGATIVE (NEGATIVE); PROTEIN,URINE NEGATIVE (NEGATIVE); URINE SPECIFIC GRAVITY 1.021; UROBILINOGEN,URINE NEGATIVE mg/dL (<2.0)
[2018-04-18 15:05] LABS: COLOR,URINE YELLOW
[2018-04-18] MEDS ORDERED: NORMAL SALINE 250 ML IV PRN ×2 (15:08)
[2018-04-18] MEDS ORDERED: IPRATROPIUM/ALBUTEROL 0.5-2.5 MG/3 ML AMPUL NEB PRN (15:13)
[2018-04-18] MEDS ORDERED: ACETAMINOPHEN 325 MG TABLET PO PRN (15:13)
[2018-04-18] MEDS ORDERED: OXYCODONE-ACETAMINOPHEN 5-325 MG TABLET PO PRN (15:13)
[2018-04-18] MEDS ORDERED: ONDANSETRON HCL INJ/PF 4 MG/2 ML SDV IV PRN (15:13)
[2018-04-18] MEDS ORDERED: TEMAZEPAM 7.5 MG CAPSULE PO PRN (15:13)
[2018-04-18] MEDS ORDERED: VANCOMYCIN HCL 0 MG in DEXTROSE 5%-WATER 250 ML IV NR (15:30)
[2018-04-18] MEDS ORDERED: SODIUM BICARBONATE 8.4% INJ 50 MEQ/50 ML DISP.SYRIN IV ONE (15:48)
--- NOTE | 2018-04-18 15:48 | PDOC H&P ---
History of Present Illness Admission Date/PCP: 04/18/18 15:21 Patient complains of: Leg swelling, foul odor, pain from Left leg History of Present Illness: GERMÁN WING is a 62 year old male Patient was brought to the emergency room with. Patient complains of foul- smelling drainage from his lower extremity was also found to be in hyperglycemic nonketotic status. He has a long history of diabetes but he is noncompliant stating that he last took his insulin about 3 months ago. He has had a previous history of chronic wounds with debridement of right lower extremity included fasciotomy. He has been seen by Dr. Lainez already and plan is to take him to the OR once he is stable for debridement of his lower extremities. Patient also was found to have a fracture of his foot. He denies any history of a fall. Patient does have neuropathy. In addition patient was found to be anemic with hemoglobin of 7.7. He does have a chronic anemia history however his hemoglobin is lower than his baseline and because he is now acutely ill and will be going to the OR he likely will be transfused prior to that. Patient is currently on insulin drip which will be continued. Past Medical History Cardiac Medical History: Reports: Hypertension Endocrine Medical History: Reports: Diabetes Mellitus Type 2 Hematology: Reports: Anemia Past Surgical History Past Surgical History: Reports: Other - Fasciotomy Social History Information Source: Relative Smoking Status: Never Smoker Frequency of Alcohol Use: None Hx Recreational Drug Use: No Drugs: None Hx Prescription Drug Abuse: No Family History Family History: DM, Hypertension Parental Family History Reviewed: No Children Family History Reviewed: NA Sibling(s) Family History Reviewed.: Yes Medication/Allergy Home Medications: No Home Medications 04/18/18 Allergies/Adverse Reactions: lisinopril Allergy (Verified 04/18/18 11:52) Review of Systems All systems: reviewed and no additional remarkable complaints except as stated Constitutional: ABSENT: fever(s), weakness, weight gain Cardiovascular: ABSENT: chest pain, dyspnea on exertion Gastrointestinal: PRESENT: as per HPI Genitourinary: PRESENT: as per HPI Neurological: PRESENT: numbness, paresthesias. ABSENT: frequent falls Endocrine: PRESENT: as per HPI Hematologic/Lymphatic: ABSENT: easy bleeding, easy bruising Physical Exam Vital Signs: Temp Pulse Resp BP Pulse Ox 97.6 F 89 17 128/71 H 100 04/18/18 11:34 04/18/18 11:34 04/18/18 14:32 04/18/18 14:32 04/18/18 14:32 General appearance: PRESENT: no acute distress, well-nourished Head exam: PRESENT: atraumatic, normocephalic Eye exam: PRESENT: conjunctiva pink, EOMI, PERRLA. ABSENT: scleral icterus Ear exam: PRESENT: normal external ear exam Mouth exam: PRESENT: moist, tongue midline Neck exam: ABSENT: carotid bruit, JVD, lymphadenopathy, thyromegaly Respiratory exam: PRESENT: clear to auscultation [place]. ABSENT: rales, rhonchi, wheezes Cardiovascular exam: PRESENT: RRR, +S1, +S2. ABSENT: diastolic murmur, rubs, systolic murmur Vascular exam: PRESENT: normal capillary refill GI/Abdominal exam: PRESENT: normal bowel sounds, soft. ABSENT: distended, guarding, mass, organolmegaly, rebound, tenderness Rectal exam: PRESENT: deferred Extremities exam: PRESENT: other - Bilateral lower extremity swelling, tenderness, area of fluctuance with some bleeding and superficial drainage from left leg. ABSENT: calf tenderness, clubbing, pedal edema Neurological exam: PRESENT: alert, awake, oriented to person, oriented to place , oriented to time, oriented to situation, CN II-XII grossly intact. ABSENT: motor sensory deficit Psychiatric exam: PRESENT: appropriate affect, normal mood. ABSENT: homicidal ideation, suicidal ideation Skin exam: PRESENT: rash, skin tears, warm. ABSENT: cyanosis Results Laboratory Results: 04/18/18 12:08 04/18/18 12:08 Blood Type O POSITIVE 04/18/18 13:20 Antibody Screen NEGATIVE 04/18/18 13:20 MCV 89 fl (80-97) 04/18/18 12:08 MCH 29.4 pg (27.0-33.4) 04/18/18 12:08 MCHC 33.0 g/dL (32.0-36.0) 04/18/18 12:08 RDW 14.0 % (11.5-14.0) 04/18/18 12:08 Seg Neutrophils % 75.2 % (42-78) 04/18/18 12:08 Lymphocytes % 9.0 % (13-45) L 04/18/18 12:08 Monocytes % 14.7 % (3-13) H 04/18/18 12:08 Eosinophils % 0.8 % (0-6) 04/18/18 12:08 Basophils % 0.3 % (0-2) 04/18/18 12:08 Absolute Neutrophils 8.0 10^3/uL (1.7-8.2) 04/18/18 12:08 Absolute Lymphocytes 1.0 10^3/uL (0.5-4.7) 04/18/18 12:08 Absolute Monocytes 1.6 10^3/uL (0.1-1.4) H 04/18/18 12:08 Absolute Eosinophils 0.1 10^3/uL (0.0-0.6) 04/18/18 12:08 Absolute Basophils 0.0 10^3/uL (0.0-0.2) 04/18/18 12:08 Chloride 87 mmol/L (98-107) L 04/18/18 12:08 Carbon Dioxide 26 mmol/L (22-30) 04/18/18 12:08 Anion Gap 15 (5-19) 04/18/18 12:08 Est GFR ( Amer) > 60 (>60) 04/18/18 12:08 Est GFR (Non-Af Amer) > 60 (>60) 04/18/18 12:08 Glucose 696 mg/dL (75-110) H* 04/18/18 12:08 Lactic Acid 1.2 mmol/L (0.7-2.1) 04/18/18 12:08 Calcium 9.2 mg/dL (8.4-10.2) 04/18/18 12:08 Total Bilirubin 0.7 mg/dL (0.2-1.3) 04/18/18 12:08 AST 8 U/L (17-59) L 04/18/18 12:08 ALT 14 U/L (21-72) L 04/18/18 12:08 Alkaline Phosphatase 262 U/L (38-126) H 04/18/18 12:08 Total Protein 6.9 g/dL (6.3-8.2) 04/18/18 12:08 Albumin 2.9 g/dL (3.5-5.0) L 04/18/18 12:08 Free T4 1.71 ng/dL (0.78-2.19) 04/18/18 12:08 Free T3 pg/mL 2.86 pg/mL (2.77-5.27) 04/18/18 12:08 Urine Color YELLOW 04/18/18 14:30 Urine Appearance CLEAR 04/18/18 14:30 Urine pH 6.0 (5.0-9.0) 04/18/18 14:30 Ur Specific [place] 1.021 04/18/18 14:30 Urine Protein NEGATIVE mg/dL (NEGATIVE) 04/18/18 14:30 Urine Glucose (UA) >=500 mg/dL (NEGATIVE) H 04/18/18 14:30 Urine Ketones TRACE mg/dL (NEGATIVE) H 04/18/18 14:30 Urine Blood NEGATIVE (NEGATIVE) 04/18/18 14:30 Urine Nitrite NEGATIVE (NEGATIVE) 04/18/18 14:30 Ur Leukocyte Esterase NEGATIVE (NEGATIVE) 04/18/18 14:30 Urine WBC (Auto) 0 /HPF 04/18/18 14:30 Urine RBC (Auto) 0 /HPF 04/18/18 14:30 04/18/18 12:08 NT-Pro-B Natriuret Pep 503 Impressions: Chest X-Ray 04/18/18 11:49 IMPRESSION: NO ACUTE RADIOGRAPHIC FINDING IN THE CHEST. Tibia/Fibula X-Ray 04/18/18 13:37 IMPRESSION: Comminuted fracture of the left medial malleolus. No other significant findings. Assessment & Plan - Diagnosis (1) Hyperosmolar non-ketotic state in patient with type 2 diabetes mellitus Plan: This is multifactorial including noncompliance, likely worsened with infection. Patient will need continued counseling on the need to take his insulin and be compliant with his medications. (2) Hyperkalemia Is this a current diagnosis for this admission?: Yes Plan: This is likely secondary to insulin deficiency. He has really not been given any specific management in the emergency room as he received insulin. we will give him an amp of bicarb. EKG does not show any peaked T waves or any EKG changes so will await repeat BMP as a suspect with insulin his potassium may have improved. He also received a dose of albuterol (3) Necrotizing soft tissue infection Is this a current diagnosis for this admission?: Yes Plan: Patient will need surgical debridement and the plan is to do this as soon as he is medically stable (4) Cellulitis of right lower extremity Is this a current diagnosis for this admission?: Yes Plan: Will place on vancomycin and cefepime and adjust antibiotics as per his hospital course and response (5) Hyperglycemia due to type 2 diabetes mellitus Is this a current diagnosis for this admission?: Yes Plan: Patient has been started on insulin drip and this will be continued. We will adjust depending on his ensuing labs (6) Hyponatremia Is this a current diagnosis for this admission?: Yes Plan: Artifactual secondary to hypoglycemia. This should resolve once glucose is corrected (7) Obesity (BMI 30.0-34.9) Is this a current diagnosis for this admission?: Yes (8) Noncompliance Is this a current diagnosis for this admission?: Yes Plan: Patient is counseling on the need to be compliant with his medications and medical instructions - Time Time Spent: 50 to 70 Minutes Medications reviewed and adjusted accordingly: Yes Anticipated discharge: Home with Homehealth Within: within 72 hours - Inpatient Certification Based on my medical assessment, after consideration of the patient's comorbidities, presenting symptoms, or acuity I expect that the services needed warrant INPATIENT care.: Yes Medical Necessity: Significant Comorbidiites Make Outpatient Treatment Too Risky , Need Close Monitoring Due to Risk of Patient Decompensation, Need for IV Antibiotics, Need for Surgery
[2018-04-18 15:53] LABS: ABSOLUTE RETICS # 0.034 10^6/uL (0.028-0.122); RETICULOCYTE COUNT (AUTO) 1.31 % (0.66-2.85)
[2018-04-18 16:10] LABS: IRON(TIBC) 17.8 ug/dL (49-181)
--- NOTE | 2018-04-18 16:12 | Progress Note ---
Provider Note Provider Note: Patient has a grade 3/6 systolic murmur on exam. He says this has been evaluated by Cardiology in the past
[2018-04-18 17:26] LABS: FOLATE 8.29 ng/mL (>2.76)
[2018-04-18 19:29] LABS: ANION GAP 12 (5-19); BLOOD UREA NITROGEN 25 mg/dL (7-20); CALCIUM 9.3 mg/dL (8.4-10.2); CARBON DIOXIDE 26 mmol/L (22-30); CHLORIDE 97 mmol/L (98-107); GLUCOSE 223 mg/dL (75-110)
[2018-04-18 19:36] LABS: POTASSIUM 4.8 mmol/L (3.6-5.0)
--- NOTE | 2018-04-18 19:46 | EKG REPORT ---
SEVERITY:- BORDERLINE ECG - SINUS RHYTHM BORDERLINE T WAVE ABNORMALITIES BORDERLINE ST ELEVATION, ANTERIOR LEADS : Confirmed by: Maik Hawthorne MD 18-Apr-2018 19:45:28
[2018-04-18] MEDS ORDERED: KETAMINE HCL INJ 500 MG/10 ML VIAL ONE (20:03)
[2018-04-18] MEDS ORDERED: MIDAZOLAM 2 MG/2 ML INJ ONE (20:03)
[2018-04-18] MEDS ORDERED: PROPOFOL INJ 200 MG/20 ML VIAL IV ONE (20:04)
[2018-04-18] MEDS ORDERED: LIDOCAINE 2% INJ-PF (20 MG/ML) 10 ML AMPUL ONE (20:04)
[2018-04-18] MEDS ORDERED: ONDANSETRON HCL INJ/PF 4 MG/2 ML SDV ONE (20:04)
[2018-04-18] MEDS ORDERED: FENTANYL CITRATE INJ/PF 100 MCG/2 ML AMPUL ONE (20:04)
[2018-04-18] MEDS ORDERED: NORMAL SALINE 1000 ML 1,000 ML IV PRN (20:59)
[2018-04-18] MEDS ORDERED: PROMETHAZINE HCL INJ 25 MG/1 ML VIAL IV PRN ×2 (21:01)
[2018-04-18] MEDS ORDERED: DIPHENHYDRAMINE HCL 50 MG/ML VIAL IV PRN (21:01)
[2018-04-18] MEDS ORDERED: MEPERIDINE HCL/PF INJ 25 MG/1 ML DISP.SYRIN IV PRN (21:01)
[2018-04-18] MEDS ORDERED: FENTANYL CITRATE INJ/PF 100 MCG/2 ML AMPUL IV PRN ×3 (21:01)
[2018-04-18] MEDS ORDERED: DEXTROSE 50%-WATER 25 GM/50 ML DISP.SYRIN IV ONE (21:30)
--- NOTE | 2018-04-18 21:44 | Operative Report ---
Operative Report DATE OF SURGERY: 04/18/18 PREOPERATIVE DIAGNOSIS: Soft tissue infection of bilateral lower extremities with extensive abscesses POSTOPERATIVE DIAGNOSIS: Same with fasciitis and myositis right lower extremity OPERATION: 1. Excisional debridement of skin, subcutaneous tissue, irrigation debridement, counterincisions x2 and Daniella drain left lower extremity below the knee. 2. Excisional debridement of skin, muscle, fascia right lower extremity superficial lateral compartment, with counterincision Daniella drain placement, packing of wound SURGEON: JENARO GONZALEZ ANESTHESIA: LMAC TISSUE REMOVED OR ALTERED: Necrotic skin, subcutaneous tissue, muscle and fascia COMPLICATIONS: None ESTIMATED BLOOD LOSS: 100 cc INTRAOPERATIVE FINDINGS: Below PROCEDURE: Patient was taken to the preop holding area to the main operating room where LMAC anesthesia was induced. Left lower extremities were prepped draped sterile fashion. Surgical plan surgical timeout were conducted. The left lower extremity was approached initially. There was a large swollen area to the anterior tibial region all the way down to the distal third of the leg. There was a pus draining central ulcer. This was excised widely to approximately 4 cm in diameter. Significant amount of pus subcutaneous tissue and nonviable granulation tissue excisionally debrided. 2 counterincisions were made on the left lower extremity below the knee one anteriorly and one laterally. These communicated with the larger pocket. All loculations were broken up in 4 L of normal saline pulse lavage irrigation performed. [place] drain, large, was placed in a loop fashion between the 2 counterincisions. Hemostasis was achieved with gentle cautery. Of note the infection appeared to be confined to the superficial and deep subcutaneous tissue, and did not involve the fascia or muscle. Wound packed with gauze packing from all 3 entry points. Attention was now directed to the right leg. The previous right fasciotomy incision was reopened on the infrapatellar region laterally. Subcutaneous tissue, loculations, and fascia all broken up. The superficial compartment of the lateral aspect of the leg was opened up. The muscle appeared viable. A counterincision was made on the mid lower leg anteriorly at the site of necrotic purulent discharge. This was excised in a circular fashion. A Daniella drain was placed between this counterincision and the main lateral incision. 4 L of saline were used in a pulse lavage fashion to irrigate this wound out vigorously. Subcutaneous tissue, skin, fascia and muscle were excisionally to needed with scissors and knife. All specimens were disposed of. Wound cultures were obtained and sent for Gram stain and sensitivity. Wound packed with gauze packing. Both legs were wrapped with gauze. Patient taught procedure well. [place] catheter was inserted at the conclusion of the case. Patient tolerated the operation remarkably well. He was taken to recovery room in stable condition.
[2018-04-19] MEDS: INSULIN LISPRO 100 UNIT/ML 3 ML VIAL SUBCUT PRN ×4 (03:34→17:41)
[2018-04-19 04:47] LABS: ABSOLUTE BASOPHILS # (AUTO) 0.1 10^3/uL (0.0-0.2); ABSOLUTE EOSINOPHILS # (AUTO) 0.1 10^3/uL (0.0-0.6); ABSOLUTE LYMPHOCYTES (AUTO) 0.9 10^3/uL (0.5-4.7); ABSOLUTE MONOCYTES (AUTO) 1.3 10^3/uL (0.1-1.4); ABSOLUTE NEUT (AUTO) 8.4 10^3/uL (1.7-8.2); BASOPHILS % (AUTO) 0.5 % (0-2); EOSINOPHILS % (AUTO) 0.8 % (0-6); HEMATOCRIT 21.8 % (37.9-51.0); LYMPHOCYTES % (AUTO) 8.6 % (13-45); MEAN CORPUSCULAR HEMOGLOBIN 29.4 pg (27.0-33.4); MEAN CORPUSCULAR HGB CONC 34.1 g/dL (32.0-36.0); MEAN CORPUSCULAR VOLUME 86 fl (80-97); MONOCYTES % (AUTO) 12.1 % (3-13); PLATELET COUNT 546 10^3/uL (150-450); RED BLOOD COUNT 2.52 10^6/uL (4.35-5.55); RED CELL DISTRIBUTION WIDTH 14.1 % (11.5-14.0); TOTAL CELLS COUNTED % (AUTO) 100 %; WHITE BLOOD COUNT 10.8 10^3/uL (4.0-10.5)
[2018-04-19 04:50] LABS: HEMOGLOBIN 7.4 g/dL (13.5-17.0)
[2018-04-19 05:02] LABS: ANION GAP 9 (5-19); BLOOD UREA NITROGEN 23 mg/dL (7-20); CALCIUM 8.6 mg/dL (8.4-10.2); CARBON DIOXIDE 24 mmol/L (22-30); CHLORIDE 100 mmol/L (98-107); GLUCOSE 333 mg/dL (75-110); POTASSIUM 5.5 mmol/L (3.6-5.0); SODIUM 133.4 mmol/L (137-145)
[2018-04-19] MEDS: CEFEPIME 2 GM/D5W RTU 2 GM/50 ML RTUPB IV SCH ×3 (05:19→17:41)
[2018-04-19] MEDS: VANCOMYCIN HCL 1,000 MG in DEXTROSE 5%-WATER 250 ML IV SCH ×2 (05:23→17:41)
--- NOTE | 2018-04-19 09:15 | PDOC PROGRESS REPORT ---
Subjective Progress Note for:: 04/19/18 Subjective:: The patient is postop day 1. He reports feeling slightly better. He is not complaining of significant pain in his legs this morning. He was able to eat breakfast. He did receive 1 unit of packed red blood cells last night. Reason For Visit: BILATERAL CELLULITIS,ANEMIA,HYPEROSMOLAR Physical Exam Vital Signs: Temp Pulse Resp BP Pulse Ox 100.0 F 100 21 H 99/50 L 99 04/19/18 08:00 04/19/18 08:00 04/19/18 08:00 04/19/18 08:00 04/19/18 08:00 Intake & Output 04/18/18 04/19/18 04/20/18 06:59 06:59 06:59 Intake Total 6431 Output Total 1380 Balance 5051 Weight 90.3 kg General appearance: PRESENT: no acute distress, cooperative, well-developed, well-nourished Head exam: PRESENT: atraumatic, normocephalic Eye exam: PRESENT: conjunctiva pale, EOMI. ABSENT: conjunctival injection, periorbital swelling, scleral icterus Ear exam: PRESENT: normal external ear exam Mouth exam: PRESENT: moist, neck supple, tongue midline Neck exam: PRESENT: full ROM. ABSENT: JVD, lymphadenopathy Respiratory exam: PRESENT: clear to auscultation sania, symmetrical, unlabored. ABSENT: rales, rhonchi, wheezes Cardiovascular exam: PRESENT: RRR, +S1, +S2, systolic murmur - 3/6 chronic systolic murmur GI/Abdominal exam: PRESENT: normal bowel sounds, soft. ABSENT: distended, guarding, tenderness Extremities exam: PRESENT: other - Bulky dressings on both legs as well as a dressing on the right knee. Evidence of bloody drainage on the left leg dressing.. ABSENT: pedal edema Musculoskeletal exam: PRESENT: normal inspection Neurological exam: PRESENT: alert, awake, oriented to person, oriented to place , oriented to situation, CN II-XII grossly intact Psychiatric exam: PRESENT: appropriate affect, normal mood. ABSENT: agitated, anxious Focused psych exam: ABSENT: restlessness Skin exam: PRESENT: dry - Especially lower extremities and feet, other - Callused areas on both feet. Significant onychomycosis of multiple toes. Bunions bilaterally. Bulky dressings on surgical areas as noted above. Results Laboratory Results: 04/19/18 04:31 04/19/18 04:31 04/18/18 04/19/18 04/19/18 19:00 04:31 04:31 WBC 10.8 H RBC 2.52 L Hgb 7.4 L Hct 21.8 L MCV 86 MCH 29.4 MCHC 34.1 RDW 14.1 H Plt Count 546 H Seg Neutrophils % 78.0 Lymphocytes % 8.6 L Monocytes % 12.1 Eosinophils % 0.8 Basophils % 0.5 Absolute Neutrophils 8.4 H Absolute Lymphocytes 0.9 Absolute Monocytes 1.3 Absolute Eosinophils 0.1 Absolute Basophils 0.1 Sodium 135.0 L 133.4 L Potassium 4.8 D 5.5 H Chloride 97 L 100 Carbon Dioxide 26 24 Anion Gap 12 9 BUN 25 H 23 H Creatinine 1.01 0.86 Est GFR ( Amer) > 60 > 60 Est GFR (Non-Af Amer) > 60 > 60 Glucose 223 H 333 H Calcium 9.3 8.6 Impressions: Chest X-Ray 04/18/18 11:49 IMPRESSION: NO ACUTE RADIOGRAPHIC FINDING IN THE CHEST. Tibia/Fibula X-Ray 04/18/18 13:37 IMPRESSION: Comminuted fracture of the left medial malleolus. No other significant findings. Assessment & Plan - Diagnosis (1) Necrotizing soft tissue infection Is this a current diagnosis for this admission?: Yes Plan: The patient went to surgery yesterday. Bilateral lower extremity abscesses were drained and necrotic ulcerated tissue was excised. He has surgical drains in place. We will continue cefepime and vancomycin. Please also see note from the surgical service. (2) Abscess of leg, left Is this a current diagnosis for this admission?: Yes Plan: Surgical drainage and debridement carried out yesterday. There is a drain in place. Continue antibiotic therapy. (3) Abscess of leg, right Is this a current diagnosis for this admission?: Yes Plan: As above. (4) Hyperkalemia Is this a current diagnosis for this admission?: Yes Plan: With insulin the patient's potassium did drop into the normal range. He is elevated again at 5.5 today. I will give 30 g of Kayexalate x1 dose. I will also resume his long-acting insulin and this will help as well. (5) Hyponatremia Is this a current diagnosis for this admission?: Yes Plan: Hyponatremia is mild. Is likely due to elevated glucose. I will continue to monitor as we correct the serum glucose. No fluid restriction at this time. (6) Hyperglycemia due to type 2 diabetes mellitus Is this a current diagnosis for this admission?: Yes Plan: Worsened by bilateral leg abscesses as well as noncompliance. The patient has not taken his insulin for several months. He does remember taking 40 units of some type of insulin daily. Initially was in the evening. He felt that he had better results by taking it in the morning. I will resume Lantus at 25 units for the time being and monitor his sugars. I will adjust the Lantus based on the sliding scale requirements. (7) Noncompliance Is this a current diagnosis for this admission?: Yes Plan: As noted above the patient has not taken his insulin for several months. No resume long-acting insulin and continue the sliding scale and encourage him to continue the regimen and follow-up with his primary care physician. - Time Time Spent with patient: 25-34 minutes Medications reviewed and adjusted accordingly: Yes Anticipated discharge: Home
[2018-04-19] MEDS: DOCUSATE SODIUM 100 MG CAPSULE PO SCH (09:37)
[2018-04-19] MEDS ORDERED: SODIUM POLYSTYRENE SULFONATE 15 GM/60 ML PO ONE (11:15)
[2018-04-19] MEDS ORDERED: INSULIN GLARGINE,HUM.REC.ANLOG 1,000 UNIT/10 ML UNIT SUBCUT ONE (11:39)
[2018-04-19] MEDS: PANTOT AC/MIN OIL/PET HY-PHL OINT 50 GM TOP SCH ×2 (11:47→17:42)
[2018-04-19] MEDS ORDERED: INSULIN GLARGINE,HUM.REC.ANLOG 300 UNIT/3 ML INSULN.PEN SUBCUT SCH (12:00)
--- NOTE | 2018-04-19 16:58 | PDOC PROGRESS REPORT ---
Subjective Progress Note for:: 04/19/18 Subjective:: Post I&D and debridement of both lower legs Reason For Visit: BILATERAL CELLULITIS,ANEMIA,HYPEROSMOLAR Physical Exam Vital Signs: Temp Pulse Resp BP Pulse Ox 99.8 F 99 17 117/64 99 04/19/18 16:00 04/19/18 16:00 04/19/18 16:00 04/19/18 16:00 04/19/18 16:00 Intake & Output 04/18/18 04/19/18 04/20/18 06:59 06:59 06:59 Intake Total 6431 500 Output Total 1380 500 Balance 5051 0 Weight 90.3 kg Exam: Packings were removed on both legs. No drainage other than some bleeding. Drains left in placed and repacked with wet todry dressings Results Laboratory Results: 04/19/18 04:31 04/19/18 04:31 04/18/18 04/19/18 04/19/18 19:00 04:31 04:31 WBC 10.8 H RBC 2.52 L Hgb 7.4 L Hct 21.8 L MCV 86 MCH 29.4 MCHC 34.1 RDW 14.1 H Plt Count 546 H Seg Neutrophils % 78.0 Lymphocytes % 8.6 L Monocytes % 12.1 Eosinophils % 0.8 Basophils % 0.5 Absolute Neutrophils 8.4 H Absolute Lymphocytes 0.9 Absolute Monocytes 1.3 Absolute Eosinophils 0.1 Absolute Basophils 0.1 Sodium 135.0 L 133.4 L Potassium 4.8 D 5.5 H Chloride 97 L 100 Carbon Dioxide 26 24 Anion Gap 12 9 BUN 25 H 23 H Creatinine 1.01 0.86 Est GFR ( Amer) > 60 > 60 Est GFR (Non-Af Amer) > 60 > 60 Glucose 223 H 333 H Calcium 9.3 8.6 Impressions: Chest X-Ray 04/18/18 11:49 IMPRESSION: NO ACUTE RADIOGRAPHIC FINDING IN THE CHEST. Tibia/Fibula X-Ray 04/18/18 13:37 IMPRESSION: Comminuted fracture of the left medial malleolus. No other significant findings. Assessment & Plan - Time Time Spent with patient: 15-24 minutes - Inpatient Certification Medical Necessity: Need for IV Antibiotics - Plan Summary Plan Summary: Wounds repacked with wet todry saline dressings. Continue IV antibiotics.
[2018-04-19 18:03] LABS: ABSOLUTE BASOPHILS # (AUTO) 0.1 10^3/uL (0.0-0.2); ABSOLUTE EOSINOPHILS # (AUTO) 0.1 10^3/uL (0.0-0.6); ABSOLUTE MONOCYTES (AUTO) 1.4 10^3/uL (0.1-1.4); ABSOLUTE NEUT (AUTO) 6.8 10^3/uL (1.7-8.2); BASOPHILS % (AUTO) 0.7 % (0-2); EOSINOPHILS % (AUTO) 1.1 % (0-6); HEMATOCRIT 23.5 % (37.9-51.0); MEAN CORPUSCULAR HEMOGLOBIN 28.9 pg (27.0-33.4); MEAN CORPUSCULAR VOLUME 85 fl (80-97); MONOCYTES % (AUTO) 14.8 % (3-13); PLATELET COUNT 522 10^3/uL (150-450); RED BLOOD COUNT 2.76 10^6/uL (4.35-5.55); RED CELL DISTRIBUTION WIDTH 14.5 % (11.5-14.0); SEGMENTED NEUTROPHILS % (AUTO) 72.4 % (42-78); TOTAL CELLS COUNTED % (AUTO) 100 %; WHITE BLOOD COUNT 9.4 10^3/uL (4.0-10.5)
--- NOTE | 2018-04-19 22:37 | EKG REPORT ---
SEVERITY:- BORDERLINE ECG - SINUS RHYTHM BORDERLINE T ABNORMALITIES, LATERAL LEADS : Confirmed by: Maik Hawthorne MD 19-Apr-2018 22:35:37
[2018-04-20 04:16] LABS: ABSOLUTE BASOPHILS # (AUTO) 0.1 10^3/uL (0.0-0.2); ABSOLUTE EOSINOPHILS # (AUTO) 0.1 10^3/uL (0.0-0.6); ABSOLUTE LYMPHOCYTES (AUTO) 1.2 10^3/uL (0.5-4.7); ABSOLUTE MONOCYTES (AUTO) 1.6 10^3/uL (0.1-1.4); ABSOLUTE NEUT (AUTO) 5.9 10^3/uL (1.7-8.2); BASOPHILS % (AUTO) 0.8 % (0-2); HEMATOCRIT 22.8 % (37.9-51.0); LYMPHOCYTES % (AUTO) 13.8 % (13-45); MEAN CORPUSCULAR HEMOGLOBIN 29.1 pg (27.0-33.4); MEAN CORPUSCULAR VOLUME 86 fl (80-97); MONOCYTES % (AUTO) 18.3 % (3-13); PLATELET COUNT 453 10^3/uL (150-450); RED BLOOD COUNT 2.67 10^6/uL (4.35-5.55); RED CELL DISTRIBUTION WIDTH 14.2 % (11.5-14.0); SEGMENTED NEUTROPHILS % (AUTO) 66.1 % (42-78); TOTAL CELLS COUNTED % (AUTO) 100 %
[2018-04-20 04:19] LABS: HEMOGLOBIN 7.8 g/dL (13.5-17.0)
[2018-04-20 04:35] LABS: ANION GAP 9 (5-19); BLOOD UREA NITROGEN 15 mg/dL (7-20); CALCIUM 8.8 mg/dL (8.4-10.2); CARBON DIOXIDE 26 mmol/L (22-30); CHLORIDE 99 mmol/L (98-107); GLUCOSE 243 mg/dL (75-110); POTASSIUM 4.8 mmol/L (3.6-5.0); SODIUM 134.2 mmol/L (137-145)
[2018-04-20] MEDS: VANCOMYCIN HCL 1,000 MG in DEXTROSE 5%-WATER 250 ML IV SCH ×2 (05:53→18:32)
[2018-04-20] MEDS: CEFEPIME 2 GM/D5W RTU 2 GM/50 ML RTUPB IV SCH ×2 (05:53→18:32)
[2018-04-20] MEDS: INSULIN LISPRO 100 UNIT/ML 3 ML VIAL SUBCUT PRN ×4 (08:08→21:51)
--- NOTE | 2018-04-20 09:45 | PDOC PROGRESS REPORT ---
Subjective Progress Note for:: 04/20/18 Subjective:: 04/19/2018-the patient is postop day 1. He reports feeling slightly better. He is not complaining of significant pain in his legs this morning. He was able to eat breakfast. He did receive 1 unit of packed red blood cells last night. April 20, 2018-the patient is quite comfortable this morning. There is slightly less drainage from his leg wounds today. Reason For Visit: BILATERAL CELLULITIS,ANEMIA,HYPEROSMOLAR Physical Exam Vital Signs: Temp Pulse Resp BP Pulse Ox 98.3 F 89 21 H 133/77 H 100 04/20/18 08:00 04/20/18 08:00 04/20/18 08:00 04/20/18 08:00 04/20/18 08:00 Intake & Output 04/19/18 04/20/18 04/21/18 06:59 06:59 06:59 Intake Total 6731 1660 500 Output Total 1380 3995 85 Balance 5351 -2335 415 Weight 90.3 kg 87.6 kg General appearance: PRESENT: no acute distress, cooperative, well-developed Head exam: PRESENT: atraumatic, normocephalic Eye exam: PRESENT: conjunctiva pale, EOMI. ABSENT: scleral icterus Ear exam: PRESENT: normal external ear exam Mouth exam: PRESENT: moist, tongue midline Neck exam: PRESENT: full ROM. ABSENT: carotid bruit, JVD, lymphadenopathy Respiratory exam: PRESENT: clear to auscultation sania, symmetrical, unlabored. ABSENT: rales, rhonchi, wheezes Cardiovascular exam: PRESENT: RRR, +S1, +S2, systolic murmur - 3/6 GI/Abdominal exam: PRESENT: normal bowel sounds, soft. ABSENT: distended, guarding, tenderness Extremities exam: PRESENT: other - Bulky dressings bilateral lower legs Neurological exam: PRESENT: alert, awake, oriented to person, oriented to place , oriented to time, oriented to situation, CN II-XII grossly intact Psychiatric exam: PRESENT: appropriate affect, normal mood. ABSENT: agitated, anxious Focused psych exam: ABSENT: restlessness Skin exam: PRESENT: other - As above. No additional skin findings. Results Laboratory Results: 04/20/18 04:06 04/20/18 04:06 04/19/18 04/20/18 04/20/18 17:55 04:06 04:06 WBC 9.4 9.0 RBC 2.76 L 2.67 L Hgb 8.0 L 7.8 L Hct 23.5 L 22.8 L MCV 85 86 MCH 28.9 29.1 MCHC 34.0 34.0 RDW 14.5 H 14.2 H Plt Count 522 H 453 H Seg Neutrophils % 72.4 66.1 Lymphocytes % 11.0 L 13.8 Monocytes % 14.8 H 18.3 H Eosinophils % 1.1 1.0 Basophils % 0.7 0.8 Absolute Neutrophils 6.8 5.9 Absolute Lymphocytes 1.0 1.2 Absolute Monocytes 1.4 1.6 H Absolute Eosinophils 0.1 0.1 Absolute Basophils 0.1 0.1 Sodium 134.2 L Potassium 4.8 Chloride 99 Carbon Dioxide 26 Anion Gap 9 BUN 15 Creatinine 0.85 Est GFR ( Amer) > 60 Est GFR (Non-Af Amer) > 60 Glucose 243 H Calcium 8.8 Impressions: Chest X-Ray 04/18/18 11:49 IMPRESSION: NO ACUTE RADIOGRAPHIC FINDING IN THE CHEST. Tibia/Fibula X-Ray 04/18/18 13:37 IMPRESSION: Comminuted fracture of the left medial malleolus. No other significant findings. Assessment & Plan - Diagnosis (1) Necrotizing soft tissue infection Is this a current diagnosis for this admission?: Yes Plan: 04/19/2018-the patient went to surgery yesterday. Bilateral lower extremity abscesses were drained and necrotic ulcerated tissue was excised. He has surgical drains in place. We will continue cefepime and vancomycin. Please also see note from the surgical service. April 20, 2018-surgery is following the patient. Drainage is slightly improved. Please see surgical note. The larger lesion (left leg) might be amenable to a VAC. There is still some tunneling. Defer to surgery. Culture is positive for gram-positive cocci. (2) Abscess of leg, left Is this a current diagnosis for this admission?: Yes Plan: 04/19/2018-surgical drainage and debridement carried out yesterday. There is a drain in place. Continue antibiotic therapy. April 20, 2018-cultures pending. Likely staph. Continue current antibiotics. (3) Abscess of leg, right Is this a current diagnosis for this admission?: Yes Plan: As above. (4) Hyperkalemia Is this a current diagnosis for this admission?: Yes Plan: 04/19/2018-with insulin the patient's potassium did drop into the normal range. He is elevated again at 5.5 today. I will give 30 g of Kayexalate x1 dose. I will also resume his long-acting insulin and this will help as well. April 20, 2018-after a single dose of Kayexalate and increased insulin dosing his serum potassium is normal. Continue to monitor. (5) Hyponatremia Is this a current diagnosis for this admission?: Yes Plan: 04/19/2018-hyponatremia is mild. Is likely due to elevated glucose. I will continue to monitor as we correct the serum glucose. No fluid restriction at this time. April 20, 2018-currently just below the lower limit normal. Continue to monitor. (6) Hyperglycemia due to type 2 diabetes mellitus Qualifiers: Diabetes mellitus parts counterman insulin use: with fdc use Qualified Code( s): E11.65 - Type 2 diabetes mellitus with hyperglycemia; Z79.4 - long term care phlebotomist ( current) use of insulin; Z79.4 - long term care phlebotomist (current) use of insulin; Z79.4 - nursing home (current) use of insulin; Z79.4 - long term care phlebotomist (current) use of insulin Is this a current diagnosis for this admission?: Yes Plan: 04/19/2018-worsened by bilateral leg abscesses as well as noncompliance. The patient has not taken his insulin for several months. He does remember taking 40 units of some type of insulin daily. Initially was in the evening. He felt that he had better results by taking it in the morning. I will resume Lantus at 25 units for the time being and monitor his sugars. I will adjust the Lantus based on the sliding scale requirements. April 20, 2018-he still has elevated glucoses. Likely related to increased oral intake. I have increased his Lantus to 35 units daily. (7) Noncompliance Is this a current diagnosis for this admission?: Yes Plan: As noted above the patient has not taken his insulin for several months. No resume long-acting insulin and continue the sliding scale and encourage him to continue the regimen and follow-up with his primary care physician. (8) Iron deficiency anemia Qualifiers: Iron deficiency anemia type: unspecified iron deficiency Qualified Code(s) : D50.9 - Iron deficiency anemia, unspecified Is this a current diagnosis for this admission?: Yes Plan: April 20, 2018-iron studies revealed serum iron of only 17. This is likely from chronic illness. I am going to administer intravenous iron in split doses to equal 500 mg total. Continue to monitor hemoglobin. - Time Time Spent with patient: 35 or more minutes Medications reviewed and adjusted accordingly: Yes Anticipated discharge: Home - Plan Summary Plan Summary: April 20, 2018-patient is stable. He will be downgraded from ICU level of care.
[2018-04-20] MEDS: SENNOSIDES/DOCUSATE 8.6-50 MG 1 EACH TABLET PO SCH (10:57)
[2018-04-20] MEDS: DOCUSATE SODIUM 100 MG CAPSULE PO SCH (10:57)
[2018-04-20] MEDS: IRON SUCROSE COMPLEX 100 MG in NORMAL SALINE 100 ML IV SCH (10:57)
[2018-04-20] MEDS: PANTOT AC/MIN OIL/PET HY-PHL OINT 50 GM TOP SCH ×2 (10:58→18:32)
[2018-04-20] MEDS: INSULIN GLARGINE,HUM.REC.ANLOG 300 UNIT/3 ML INSULN.PEN SUBCUT SCH (10:58)
--- NOTE | 2018-04-20 19:12 | PDOC PROGRESS REPORT ---
Subjective Progress Note for:: 04/20/18 Subjective:: less pains Reason For Visit: BILATERAL CELLULITIS,ANEMIA,HYPEROSMOLAR Physical Exam Vital Signs: Temp Pulse Resp BP Pulse Ox 98.3 F 89 17 147/76 H 99 04/20/18 08:00 04/20/18 08:00 04/20/18 11:30 04/20/18 11:17 04/20/18 11:30 Intake & Output 04/19/18 04/20/18 04/21/18 06:59 06:59 06:59 Intake Total 6731 1710 1250 Output Total 1380 3995 2190 Balance 8545 -3594 -860 Weight 90.3 kg 87.6 kg Exam: Packing removed and repacked with smaller gauze. Edema and inflammation improving. Has a bleeder on the muscle on the right leg I&D site that stopped with just pressure dressing. Re-evaluate in am. Continue antibiotic therapy Results Laboratory Results: 04/20/18 04:06 04/20/18 04:06 04/20/18 04/20/18 04:06 04:06 WBC 9.0 RBC 2.67 L Hgb 7.8 L Hct 22.8 L MCV 86 MCH 29.1 MCHC 34.0 RDW 14.2 H Plt Count 453 H Seg Neutrophils % 66.1 Lymphocytes % 13.8 Monocytes % 18.3 H Eosinophils % 1.0 Basophils % 0.8 Absolute Neutrophils 5.9 Absolute Lymphocytes 1.2 Absolute Monocytes 1.6 H Absolute Eosinophils 0.1 Absolute Basophils 0.1 Sodium 134.2 L Potassium 4.8 Chloride 99 Carbon Dioxide 26 Anion Gap 9 BUN 15 Creatinine 0.85 Est GFR ( Amer) > 60 Est GFR (Non-Af Amer) > 60 Glucose 243 H Calcium 8.8 Impressions: Chest X-Ray 04/18/18 11:49 IMPRESSION: NO ACUTE RADIOGRAPHIC FINDING IN THE CHEST. Tibia/Fibula X-Ray 04/18/18 13:37 IMPRESSION: Comminuted fracture of the left medial malleolus. No other significant findings. Assessment & Plan - Time Time Spent with patient: 15-24 minutes - Inpatient Certification Medical Necessity: Need Close Monitoring Due to Risk of Patient Decompensation, Need for IV Antibiotics, Risk of Complication if Not Cared For in Hospital - Plan Summary Plan Summary: Will re-evaluate wounds in am. May need to suture ligate bleeder on right lower leg wound.
[2018-04-21 04:03] LABS: ABSOLUTE BASOPHILS # (AUTO) 0.1 10^3/uL (0.0-0.2); ABSOLUTE EOSINOPHILS # (AUTO) 0.1 10^3/uL (0.0-0.6); ABSOLUTE LYMPHOCYTES (AUTO) 1.5 10^3/uL (0.5-4.7); ABSOLUTE MONOCYTES (AUTO) 1.6 10^3/uL (0.1-1.4); ABSOLUTE NEUT (AUTO) 6.1 10^3/uL (1.7-8.2); EOSINOPHILS % (AUTO) 1.1 % (0-6); HEMATOCRIT 22.2 % (37.9-51.0); LYMPHOCYTES % (AUTO) 15.9 % (13-45); MEAN CORPUSCULAR HEMOGLOBIN 28.7 pg (27.0-33.4); MEAN CORPUSCULAR HGB CONC 33.6 g/dL (32.0-36.0); MEAN CORPUSCULAR VOLUME 86 fl (80-97); MONOCYTES % (AUTO) 17.1 % (3-13); PLATELET COUNT 486 10^3/uL (150-450); RED BLOOD COUNT 2.59 10^6/uL (4.35-5.55); RED CELL DISTRIBUTION WIDTH 14.4 % (11.5-14.0); SEGMENTED NEUTROPHILS % (AUTO) 64.9 % (42-78); TOTAL CELLS COUNTED % (AUTO) 100 %; WHITE BLOOD COUNT 9.4 10^3/uL (4.0-10.5)
[2018-04-21 04:09] LABS: HEMOGLOBIN 7.4 g/dL (13.5-17.0)
[2018-04-21 04:23] LABS: ANION GAP 7 (5-19); BLOOD UREA NITROGEN 15 mg/dL (7-20); CALCIUM 8.9 mg/dL (8.4-10.2); CARBON DIOXIDE 30 mmol/L (22-30); CHLORIDE 99 mmol/L (98-107); GLUCOSE 191 mg/dL (75-110); POTASSIUM 4.7 mmol/L (3.6-5.0); SODIUM 136.3 mmol/L (137-145)
[2018-04-21] MEDS: CEFEPIME 2 GM/D5W RTU 2 GM/50 ML RTUPB IV SCH ×2 (05:22→17:09)
[2018-04-21] MEDS: VANCOMYCIN HCL 1,000 MG in DEXTROSE 5%-WATER 250 ML IV SCH (05:22)
[2018-04-21] MEDS: INSULIN LISPRO 100 UNIT/ML 3 ML VIAL SUBCUT PRN ×3 (08:24→21:48)
--- NOTE | 2018-04-21 09:33 | PDOC PROGRESS REPORT ---
Subjective Progress Note for:: 04/21/18 Subjective:: Patient has no complaints Reason For Visit: BILATERAL CELLULITIS,ANEMIA,HYPEROSMOLAR Physical Exam Vital Signs: Temp Pulse Resp BP Pulse Ox 98.5 F 88 18 130/78 H 100 04/20/18 22:00 04/20/18 22:00 04/20/18 22:00 04/20/18 22:00 04/20/18 22:00 Intake & Output 04/20/18 04/21/18 04/22/18 06:59 06:59 06:59 Intake Total 1710 1550 Output Total 3995 4540 Balance -2285 -2990 Weight 87.6 kg 88.7 kg General appearance: PRESENT: no acute distress Extremities exam: PRESENT: other - Dressings removed; the left leg wounds, including counterincisions and loop drain exposed and all packing removed. The left [place] drain was removed from the patient. No foul smell pus; granulation tissue bowl; large but viable skin flap Right lower extremity dressing removed and loop [place] drain removed. There is some pus draining from the upper aspect of the right operative wound under the skin flap. Results Laboratory Results: 04/21/18 03:54 04/21/18 03:54 04/21/18 04/21/18 03:54 03:54 WBC 9.4 RBC 2.59 L Hgb 7.4 L Hct 22.2 L MCV 86 MCH 28.7 MCHC 33.6 RDW 14.4 H Plt Count 486 H Seg Neutrophils % 64.9 Lymphocytes % 15.9 Monocytes % 17.1 H Eosinophils % 1.1 Basophils % 1.0 Absolute Neutrophils 6.1 Absolute Lymphocytes 1.5 Absolute Monocytes 1.6 H Absolute Eosinophils 0.1 Absolute Basophils 0.1 Sodium 136.3 L Potassium 4.7 Chloride 99 Carbon Dioxide 30 Anion Gap 7 BUN 15 Creatinine 0.83 Est GFR ( Amer) > 60 Est GFR (Non-Af Amer) > 60 Glucose 191 H Calcium 8.9 Magnesium 1.8 Impressions: Chest X-Ray 04/18/18 11:49 IMPRESSION: NO ACUTE RADIOGRAPHIC FINDING IN THE CHEST. Tibia/Fibula X-Ray 04/18/18 13:37 IMPRESSION: Comminuted fracture of the left medial malleolus. No other significant findings. Assessment & Plan - Diagnosis (1) Necrotizing soft tissue infection Is this a current diagnosis for this admission?: Yes Plan: Impression: Patient is 1 week status post vigorous debridement of extensive soft tissue infection of the lower extremities; reasonable but incomplete source control on the right leg; patient is on appropriate antibiotics for gram- positive Deborah infection. Recommendations: 1. We performed wound irrigation and gentle mechanical debridement which is well tolerated by the patient today at bedside. All active pus has been evacuated; wound repacked 2. Continue current comprehensive medical management 3. Because of the depth of these wounds, undermined skin flaps etc., careful bedside attention will be required going forward. I do not believe wound VAC would be appropriate given the bilateral nature of the wounds, extensive undermining, etc. (2) Alcohol abuse Is this a current diagnosis for this admission?: Yes (3) Hyperglycemia due to type 2 diabetes mellitus Qualifiers: Diabetes mellitus m[facility] insulin use: with termite control servicer use Qualified Code( s): E11.65 - Type 2 diabetes mellitus with hyperglycemia; Z79.4 - marine oil terminal superintendent ( current) use of insulin; Z79.4 - custodial (current) use of insulin; Z79.4 - custodial (current) use of insulin; Z79.4 - custodial (current) use of insulin Is this a current diagnosis for this admission?: Yes (4) Hyponatremia Is this a current diagnosis for this admission?: Yes (5) Leukocytosis Is this a current diagnosis for this admission?: Yes (6) Sepsis Is this a current diagnosis for this admission?: Yes
[2018-04-21] MEDS: PANTOT AC/MIN OIL/PET HY-PHL OINT 50 GM TOP SCH ×2 (09:56→17:10)
[2018-04-21] MEDS: SENNOSIDES/DOCUSATE 8.6-50 MG 1 EACH TABLET PO SCH (09:56)
[2018-04-21] MEDS: DOCUSATE SODIUM 100 MG CAPSULE PO SCH (09:56)
[2018-04-21] MEDS: INSULIN GLARGINE,HUM.REC.ANLOG 300 UNIT/3 ML INSULN.PEN SUBCUT SCH (09:58)
[2018-04-21] MEDS ORDERED: ONDANSETRON HCL INJ/PF 4 MG/2 ML SDV IV PRN (13:00)
[2018-04-21] MEDS ORDERED: NORMAL SALINE 250 ML IV PRN ×2 (13:57)
--- NOTE | 2018-04-21 14:05 | PDOC PROGRESS REPORT ---
Subjective Progress Note for:: 04/21/18 Subjective:: 04/19/2018-the patient is postop day 1. He reports feeling slightly better. He is not complaining of significant pain in his legs this morning. He was able to eat breakfast. He did receive 1 unit of packed red blood cells last night. April 20, 2018-the patient is quite comfortable this morning. There is slightly less drainage from his leg wounds today. 04/21/2018-the patient had further debridement at the bedside by Dr. Lainez. Please see surgical note. The patient is quite comfortable this morning and in fact is eating lunch. Reason For Visit: BILATERAL CELLULITIS,ANEMIA,HYPEROSMOLAR Physical Exam Vital Signs: Temp Pulse Resp BP Pulse Ox 98.1 F 76 18 137/76 H 99 04/21/18 10:00 04/21/18 10:00 04/21/18 10:00 04/21/18 10:00 04/21/18 10:00 Intake & Output 04/20/18 04/21/18 04/22/18 06:59 06:59 06:59 Intake Total 1710 1550 600 Output Total 3995 4540 Balance -2285 -2990 600 Weight 87.6 kg 88.7 kg General appearance: PRESENT: no acute distress, cooperative, well-developed Head exam: PRESENT: atraumatic, normocephalic Eye exam: PRESENT: conjunctiva pale. ABSENT: scleral icterus Mouth exam: PRESENT: moist, tongue midline Respiratory exam: PRESENT: rales - Faint rales at bases, symmetrical, unlabored. ABSENT: wheezes Cardiovascular exam: PRESENT: RRR, +S1, +S2, systolic murmur GI/Abdominal exam: PRESENT: normal bowel sounds, soft. ABSENT: distended, guarding, tenderness Extremities exam: PRESENT: other - Bulky dressings on each leg Neurological exam: PRESENT: alert, awake, oriented to person, oriented to place , oriented to time, oriented to situation, CN II-XII grossly intact Psychiatric exam: PRESENT: appropriate affect, normal mood. ABSENT: agitated, anxious Focused psych exam: ABSENT: restlessness Results Laboratory Results: 04/21/18 03:54 04/21/18 03:54 04/21/18 04/21/18 03:54 03:54 WBC 9.4 RBC 2.59 L Hgb 7.4 L Hct 22.2 L MCV 86 MCH 28.7 MCHC 33.6 RDW 14.4 H Plt Count 486 H Seg Neutrophils % 64.9 Lymphocytes % 15.9 Monocytes % 17.1 H Eosinophils % 1.1 Basophils % 1.0 Absolute Neutrophils 6.1 Absolute Lymphocytes 1.5 Absolute Monocytes 1.6 H Absolute Eosinophils 0.1 Absolute Basophils 0.1 Sodium 136.3 L Potassium 4.7 Chloride 99 Carbon Dioxide 30 Anion Gap 7 BUN 15 Creatinine 0.83 Est GFR ( Amer) > 60 Est GFR (Non-Af Amer) > 60 Glucose 191 H Calcium 8.9 Magnesium 1.8 Impressions: Chest X-Ray 04/18/18 11:49 IMPRESSION: NO ACUTE RADIOGRAPHIC FINDING IN THE CHEST. Tibia/Fibula X-Ray 04/18/18 13:37 IMPRESSION: Comminuted fracture of the left medial malleolus. No other significant findings. Assessment & Plan - Diagnosis (1) Necrotizing soft tissue infection Is this a current diagnosis for this admission?: Yes Plan: 04/19/2018-the patient went to surgery yesterday. Bilateral lower extremity abscesses were drained and necrotic ulcerated tissue was excised. He has surgical drains in place. We will continue cefepime and vancomycin. Please also see note from the surgical service. April 20, 2018-surgery is following the patient. Drainage is slightly improved. Please see surgical note. The larger lesion (left leg) might be amenable to a VAC. There is still some tunneling. Defer to surgery. Culture is positive for gram-positive cocci. 04/21/2018-please also see surgical note. Because of the nature of the wound surgery feels that of the VAC would not be appropriate but rather aggressive wound care. Continued antibiotic therapy. (2) Abscess of leg, left Is this a current diagnosis for this admission?: Yes Plan: 04/19/2018-surgical drainage and debridement carried out yesterday. There is a drain in place. Continue antibiotic therapy. April 20, 2018-cultures pending. Likely staph. Continue current antibiotics. 04/21/2018-culture is still pending. Preliminary is Klebsiella as well as gram- positive cocci in clusters which is usually indicative of staph. Continue vancomycin and cefepime until final results were available. (3) Abscess of leg, right Is this a current diagnosis for this admission?: Yes Plan: As above. (4) Hyperkalemia Is this a current diagnosis for this admission?: Yes Plan: 04/19/2018-with insulin the patient's potassium did drop into the normal range. He is elevated again at 5.5 today. I will give 30 g of Kayexalate x1 dose. I will also resume his long-acting insulin and this will help as well. April 20, 2018-after a single dose of Kayexalate and increased insulin dosing his serum potassium is normal. Continue to monitor. 04/21/2018-patient's serum potassium is back in the normal range. (5) Hyponatremia Is this a current diagnosis for this admission?: Yes Plan: 04/19/2018-hyponatremia is mild. Is likely due to elevated glucose. I will continue to monitor as we correct the serum glucose. No fluid restriction at this time. April 20, 2018-currently just below the lower limit normal. Continue to monitor. 04/21/2018-the serum sodium is improved and just below the lower limit normal. No change in therapy at this time. (6) Hyperglycemia due to type 2 diabetes mellitus Qualifiers: Diabetes mellitus long-term insulin use: with local company intermodal truck driver use Qualified Code( s): E11.65 - Type 2 diabetes mellitus with hyperglycemia; Z79.4 - senior living ( current) use of insulin; Z79.4 - terminologist (current) use of insulin; Z79.4 - terminologist (current) use of insulin; Z79.4 - senior living (current) use of insulin Is this a current diagnosis for this admission?: Yes Plan: 04/19/2018-worsened by bilateral leg abscesses as well as noncompliance. The patient has not taken his insulin for several months. He does remember taking 40 units of some type of insulin daily. Initially was in the evening. He felt that he had better results by taking it in the morning. I will resume Lantus at 25 units for the time being and monitor his sugars. I will adjust the Lantus based on the sliding scale requirements. April 20, 2018-he still has elevated glucoses. Likely related to increased oral intake. I have increased his Lantus to 35 units daily. 04/21/2018-I still do not have adequate control of the patient's sugars. I have increased his Lantus to 40 units and I have structured a more aggressive sliding scale. He is on a carbohydrate consistent diet as well. (7) Iron deficiency anemia Qualifiers: Iron deficiency anemia type: unspecified iron deficiency Qualified Code(s) : D50.9 - Iron deficiency anemia, unspecified Is this a current diagnosis for this admission?: Yes Plan: April 20, 2018-iron studies revealed serum iron of only 17. This is likely from chronic illness. I am going to administer intravenous iron in split doses to equal 500 mg total. Continue to monitor hemoglobin. 04/21/2018-intravenous iron therapy has been ordered. The patient's hemoglobin has dropped again. The patient did receive a unit of packed cells prior to and then again after his initial surgery. I have suggested, and the patient has agreed to an additional unit of packed red blood cells that he will receive today. We will continue to monitor his hemoglobin. (8) Noncompliance Is this a current diagnosis for this admission?: Yes Plan: As noted above the patient has not taken his insulin for several months. No resume long-acting insulin and continue the sliding scale and encourage him to continue the regimen and follow-up with his primary care physician. - Time Time Spent with patient: 25-34 minutes Medications reviewed and adjusted accordingly: Yes
[2018-04-21] MEDS: VANCOMYCIN HCL 1,500 MG in DEXTROSE 5%-WATER 250 ML IV SCH (17:10)
[2018-04-22 00:57] LABS: ABSOLUTE BASOPHILS # (AUTO) 0.1 10^3/uL (0.0-0.2); ABSOLUTE EOSINOPHILS # (AUTO) 0.2 10^3/uL (0.0-0.6); ABSOLUTE LYMPHOCYTES (AUTO) 1.7 10^3/uL (0.5-4.7); ABSOLUTE MONOCYTES (AUTO) 1.7 10^3/uL (0.1-1.4); ABSOLUTE NEUT (AUTO) 6.1 10^3/uL (1.7-8.2); BASOPHILS % (AUTO) 0.7 % (0-2); EOSINOPHILS % (AUTO) 1.6 % (0-6); HEMATOCRIT 23.4 % (37.9-51.0); LYMPHOCYTES % (AUTO) 17.3 % (13-45); MEAN CORPUSCULAR HEMOGLOBIN 29.2 pg (27.0-33.4); MEAN CORPUSCULAR HGB CONC 34.1 g/dL (32.0-36.0); MEAN CORPUSCULAR VOLUME 86 fl (80-97); MONOCYTES % (AUTO) 17.4 % (3-13); PLATELET COUNT 488 10^3/uL (150-450); RED BLOOD COUNT 2.74 10^6/uL (4.35-5.55); RED CELL DISTRIBUTION WIDTH 14.2 % (11.5-14.0); TOTAL CELLS COUNTED % (AUTO) 100 %; WHITE BLOOD COUNT 9.7 10^3/uL (4.0-10.5)
[2018-04-22] MEDS: CEFEPIME 2 GM/D5W RTU 2 GM/50 ML RTUPB IV SCH ×2 (05:00→20:49)
[2018-04-22] MEDS: VANCOMYCIN HCL 1,500 MG in DEXTROSE 5%-WATER 250 ML IV SCH ×2 (05:34→18:02)
[2018-04-22] MEDS: INSULIN LISPRO 100 UNIT/ML 3 ML VIAL SUBCUT PRN ×3 (08:05→17:13)
[2018-04-22] MEDS: DOCUSATE SODIUM 100 MG CAPSULE PO SCH (09:18)
[2018-04-22] MEDS: SENNOSIDES/DOCUSATE 8.6-50 MG 1 EACH TABLET PO SCH (09:18)
[2018-04-22] MEDS: IRON SUCROSE COMPLEX 100 MG in NORMAL SALINE 100 ML IV SCH (09:19)
[2018-04-22] MEDS: INSULIN GLARGINE,HUM.REC.ANLOG 300 UNIT/3 ML INSULN.PEN SUBCUT SCH (09:20)
[2018-04-22] MEDS: PANTOT AC/MIN OIL/PET HY-PHL OINT 50 GM TOP SCH ×2 (09:25→18:18)
--- NOTE | 2018-04-22 20:41 | PDOC PROGRESS REPORT ---
Subjective Progress Note for:: 04/22/18 Subjective:: No complaints. Reason For Visit: BILATERAL CELLULITIS,ANEMIA,HYPEROSMOLAR Physical Exam Vital Signs: Temp Pulse Resp BP Pulse Ox 98.0 F 97 17 145/70 H 100 04/22/18 16:00 04/22/18 16:00 04/22/18 16:00 04/22/18 16:00 04/22/18 16:00 Intake & Output 04/21/18 04/22/18 04/23/18 06:59 06:59 06:59 Intake Total 1850 2370 2514 Output Total 4540 3500 1620 Balance -2690 -1130 894 Weight 88.7 kg 89.2 kg Extremities exam: PRESENT: other - Bilateral lower extremity wounds examined. All packings were removed. Granulation tissues seen. No purulent discharge. No undrained abscess pockets. Wounds were then re-packed. Results Laboratory Results: 04/22/18 00:48 04/21/18 03:54 04/22/18 00:48 WBC 9.7 RBC 2.74 L Hgb 8.0 L Hct 23.4 L MCV 86 MCH 29.2 MCHC 34.1 RDW 14.2 H Plt Count 488 H Seg Neutrophils % 63.0 Lymphocytes % 17.3 Monocytes % 17.4 H Eosinophils % 1.6 Basophils % 0.7 Absolute Neutrophils 6.1 Absolute Lymphocytes 1.7 Absolute Monocytes 1.7 H Absolute Eosinophils 0.2 Absolute Basophils 0.1 04/18/18 21:02 Leg - Right Side Abscess Gram Stain - Final 04/18/18 21:02 Leg - Right Side Abscess Wound Culture - Final Staphylococcus Aureus Streptococcus Anginosus 04/18/18 21:00 Leg - Left Side Abscess Gram Stain - Final 04/18/18 21:00 Leg - Left Side Abscess Wound Culture - Final Staphylococcus Aureus Klebsiella Pneumoniae Impressions: Chest X-Ray 04/18/18 11:49 IMPRESSION: NO ACUTE RADIOGRAPHIC FINDING IN THE CHEST. Tibia/Fibula X-Ray 04/18/18 13:37 IMPRESSION: Comminuted fracture of the left medial malleolus. No other significant findings. Assessment & Plan - Diagnosis (1) Multiple abscesses of both legs Is this a current diagnosis for this admission?: Yes Plan: Status post debridement. Debridement appears adequate. Continue local wound care with dressing changes. The wound still had a little bit of oozing and would hold off wound VAC for now.
--- NOTE | 2018-04-22 22:04 | PDOC PROGRESS REPORT ---
Subjective Progress Note for:: 04/22/18 Subjective:: 04/19/2018-the patient is postop day 1. He reports feeling slightly better. He is not complaining of significant pain in his legs this morning. He was able to eat breakfast. He did receive 1 unit of packed red blood cells last night. April 20, 2018-the patient is quite comfortable this morning. There is slightly less drainage from his leg wounds today. 04/21/2018-the patient had further debridement at the bedside by Dr. Laienz. Please see surgical note. The patient is quite comfortable this morning and in fact is eating lunch. 04/22/2018-resting comfortably eating lunch. Reason For Visit: BILATERAL CELLULITIS,ANEMIA,HYPEROSMOLAR Physical Exam Vital Signs: Temp Pulse Resp BP Pulse Ox 98.0 F 97 17 145/70 H 100 04/22/18 16:00 04/22/18 16:00 04/22/18 16:00 04/22/18 16:00 04/22/18 16:00 Intake & Output 04/21/18 04/22/18 04/23/18 06:59 06:59 06:59 Intake Total 1850 2370 2514 Output Total 4540 3500 1620 Balance -2690 -1130 894 Weight 88.7 kg 89.2 kg General appearance: PRESENT: no acute distress, cooperative, well-developed Mouth exam: PRESENT: moist, tongue midline Neck exam: ABSENT: lymphadenopathy, thyromegaly, tracheal deviation Respiratory exam: PRESENT: clear to auscultation sania. ABSENT: rales, rhonchi, wheezes Cardiovascular exam: PRESENT: RRR, +S1, +S2, systolic murmur GI/Abdominal exam: PRESENT: normal bowel sounds, soft. ABSENT: distended, guarding, tenderness Extremities exam: PRESENT: other - Bulky dressings bilateral lower extremities Neurological exam: PRESENT: alert, awake, oriented to person, oriented to place , oriented to time, oriented to situation Psychiatric exam: PRESENT: appropriate affect, normal mood. ABSENT: agitated, anxious Focused psych exam: ABSENT: restlessness Results Laboratory Results: 04/22/18 00:48 04/21/18 03:54 04/22/18 00:48 WBC 9.7 RBC 2.74 L Hgb 8.0 L Hct 23.4 L MCV 86 MCH 29.2 MCHC 34.1 RDW 14.2 H Plt Count 488 H Seg Neutrophils % 63.0 Lymphocytes % 17.3 Monocytes % 17.4 H Eosinophils % 1.6 Basophils % 0.7 Absolute Neutrophils 6.1 Absolute Lymphocytes 1.7 Absolute Monocytes 1.7 H Absolute Eosinophils 0.2 Absolute Basophils 0.1 04/18/18 21:02 Leg - Right Side Abscess Gram Stain - Final 04/18/18 21:02 Leg - Right Side Abscess Wound Culture - Final Staphylococcus Aureus Streptococcus Anginosus 04/18/18 21:00 Leg - Left Side Abscess Gram Stain - Final 04/18/18 21:00 Leg - Left Side Abscess Wound Culture - Final Staphylococcus Aureus Klebsiella Pneumoniae Impressions: Chest X-Ray 04/18/18 11:49 IMPRESSION: NO ACUTE RADIOGRAPHIC FINDING IN THE CHEST. Tibia/Fibula X-Ray 04/18/18 13:37 IMPRESSION: Comminuted fracture of the left medial malleolus. No other significant findings. Assessment & Plan - Diagnosis (1) Necrotizing soft tissue infection Is this a current diagnosis for this admission?: Yes Plan: 04/19/2018-the patient went to surgery yesterday. Bilateral lower extremity abscesses were drained and necrotic ulcerated tissue was excised. He has surgical drains in place. We will continue cefepime and vancomycin. Please also see note from the surgical service. April 20, 2018-surgery is following the patient. Drainage is slightly improved. Please see surgical note. The larger lesion (left leg) might be amenable to a VAC. There is still some tunneling. Defer to surgery. Culture is positive for gram-positive cocci. 04/21/2018-please also see surgical note. Because of the nature of the wound surgery feels that of the VAC would not be appropriate but rather aggressive wound care. Continued antibiotic therapy. 04/22/2018-dressings were changed by surgery today. No further debridement today. See below. (2) Abscess of leg, left Is this a current diagnosis for this admission?: Yes Plan: 04/19/2018-surgical drainage and debridement carried out yesterday. There is a drain in place. Continue antibiotic therapy. April 20, 2018-cultures pending. Likely staph. Continue current antibiotics. 04/21/2018-culture is still pending. Preliminary is Klebsiella as well as gram- positive cocci in clusters which is usually indicative of staph. Continue vancomycin and cefepime until final results were available. 04/22/2018-preliminary culture results reveal staph aureus, strep species with Klebsiella and Salmonella. I will continue the vancomycin and cefepime for now. Await final culture results before changing antibiotics. (3) Abscess of leg, right Is this a current diagnosis for this admission?: Yes Plan: As above. (4) Hyperkalemia Is this a current diagnosis for this admission?: Yes Plan: 04/19/2018-with insulin the patient's potassium did drop into the normal range. He is elevated again at 5.5 today. I will give 30 g of Kayexalate x1 dose. I will also resume his long-acting insulin and this will help as well. April 20, 2018-after a single dose of Kayexalate and increased insulin dosing his serum potassium is normal. Continue to monitor. 04/21/2018-patient's serum potassium is back in the normal range. 04/22/2018-recheck potassium in the morning. (5) Hyponatremia Is this a current diagnosis for this admission?: Yes Plan: 04/19/2018-hyponatremia is mild. Is likely due to elevated glucose. I will continue to monitor as we correct the serum glucose. No fluid restriction at this time. April 20, 2018-currently just below the lower limit normal. Continue to monitor. 04/21/2018-the serum sodium is improved and just below the lower limit normal. No change in therapy at this time. 04/22/2018-recheck electrolytes in the morning (6) Iron deficiency anemia Qualifiers: Iron deficiency anemia type: unspecified iron deficiency Qualified Code(s) : D50.9 - Iron deficiency anemia, unspecified Is this a current diagnosis for this admission?: Yes Plan: April 20, 2018-iron studies revealed serum iron of only 17. This is likely from chronic illness. I am going to administer intravenous iron in split doses to equal 500 mg total. Continue to monitor hemoglobin. 04/21/2018-intravenous iron therapy has been ordered. The patient's hemoglobin has dropped again. The patient did receive a unit of packed cells prior to and then again after his initial surgery. I have suggested, and the patient has agreed to an additional unit of packed red blood cells that he will receive today. We will continue to monitor his hemoglobin. 04/22/2018-continue intravenous iron therapy. He did receive 1 unit of packed red blood cells yesterday. Recheck hemoglobin tomorrow. (7) Noncompliance Is this a current diagnosis for this admission?: Yes (8) Hyperglycemia due to type 2 diabetes mellitus Qualifiers: Diabetes mellitus nursing home insulin use: with roasterman use Qualified Code( s): E11.65 - Type 2 diabetes mellitus with hyperglycemia; Z79.4 - termite treater ( current) use of insulin; Z79.4 - jail (current) use of insulin; Z79.4 - jail (current) use of insulin; Z79.4 - termite treater (current) use of insulin Is this a current diagnosis for this admission?: Yes Plan: 04/19/2018-worsened by bilateral leg abscesses as well as noncompliance. The patient has not taken his insulin for several months. He does remember taking 40 units of some type of insulin daily. Initially was in the evening. He felt that he had better results by taking it in the morning. I will resume Lantus at 25 units for the time being and monitor his sugars. I will adjust the Lantus based on the sliding scale requirements. April 20, 2018-he still has elevated glucoses. Likely related to increased oral intake. I have increased his Lantus to 35 units daily. 04/21/2018-I still do not have adequate control of the patient's sugars. I have increased his Lantus to 40 units and I have structured a more aggressive sliding scale. He is on a carbohydrate consistent diet as well. 04/22/2018-still with variable glucose levels. Part of this is dietary noncompliance. We will continue to monitor. Will try and encourage better compliance to his control carbohydrate diet. - Time Time Spent with patient: 15-24 minutes Medications reviewed and adjusted accordingly: Yes
[2018-04-23] MEDS: VANCOMYCIN HCL 1,500 MG in DEXTROSE 5%-WATER 250 ML IV SCH ×2 (06:12→17:29)
[2018-04-23] MEDS: CEFEPIME 2 GM/D5W RTU 2 GM/50 ML RTUPB IV SCH ×2 (06:13→17:29)
[2018-04-23 06:15] LABS: HEMATOCRIT 24.3 % (37.9-51.0); MEAN CORPUSCULAR HEMOGLOBIN 28.2 pg (27.0-33.4); MEAN CORPUSCULAR HGB CONC 32.9 g/dL (32.0-36.0); MEAN CORPUSCULAR VOLUME 86 fl (80-97); PLATELET COUNT 537 10^3/uL (150-450); RED BLOOD COUNT 2.83 10^6/uL (4.35-5.55); RED CELL DISTRIBUTION WIDTH 14.5 % (11.5-14.0); WHITE BLOOD COUNT 9.7 10^3/uL (4.0-10.5)
[2018-04-23 06:43] LABS: VANCOMYCIN,TROUGH 16.4 ug/mL (5.0-20.0)
[2018-04-23 06:44] LABS: ANION GAP 9 (5-19); BLOOD UREA NITROGEN 23 mg/dL (7-20); CARBON DIOXIDE 27 mmol/L (22-30); CHLORIDE 99 mmol/L (98-107); GLUCOSE 254 mg/dL (75-110); SODIUM 134.7 mmol/L (137-145)
[2018-04-23] MEDS: PANTOT AC/MIN OIL/PET HY-PHL OINT 50 GM TOP SCH ×2 (09:50→17:35)
[2018-04-23] MEDS: SENNOSIDES/DOCUSATE 8.6-50 MG 1 EACH TABLET PO SCH ×2 (10:06→10:15)
[2018-04-23] MEDS: DOCUSATE SODIUM 100 MG CAPSULE PO SCH ×2 (10:06→10:14)
[2018-04-23] MEDS: INSULIN GLARGINE,HUM.REC.ANLOG 300 UNIT/3 ML INSULN.PEN SUBCUT SCH (10:07)
[2018-04-23] MEDS: INSULIN LISPRO 100 UNIT/ML 3 ML VIAL SUBCUT PRN ×2 (12:26→23:24)
--- NOTE | 2018-04-23 17:37 | PDOC PROGRESS REPORT ---
Subjective Progress Note for:: 04/23/18 Subjective:: 04/19/2018-the patient is postop day 1. He reports feeling slightly better. He is not complaining of significant pain in his legs this morning. He was able to eat breakfast. He did receive 1 unit of packed red blood cells last night. April 20, 2018-the patient is quite comfortable this morning. There is slightly less drainage from his leg wounds today. 04/21/2018-the patient had further debridement at the bedside by Dr. Lainez. Please see surgical note. The patient is quite comfortable this morning and in fact is eating lunch. 04/22/2018-resting comfortably eating lunch. 04/23/2018-the patient is in good spirits. There was some bleeding on the lateral aspect of his left heel and the dressing on his left leg has slid down. Reason For Visit: BILATERAL CELLULITIS,ANEMIA,HYPEROSMOLAR Physical Exam Vital Signs: Temp Pulse Resp BP Pulse Ox 98.5 F 99 16 148/77 H 99 04/23/18 16:00 04/23/18 16:00 04/23/18 16:00 04/23/18 16:00 04/23/18 16:00 Intake & Output 04/22/18 04/23/18 04/24/18 06:59 06:59 06:59 Intake Total 2370 2564 700 Output Total 3500 1620 2300 Balance -1130 944 -1600 Weight 89.2 kg 89.5 kg General appearance: PRESENT: no acute distress, cooperative, well-developed Head exam: PRESENT: atraumatic, normocephalic Ear exam: PRESENT: normal external ear exam Mouth exam: PRESENT: moist, tongue midline Teeth exam: PRESENT: poor dentation Respiratory exam: PRESENT: clear to auscultation sania, symmetrical, unlabored. ABSENT: accessory muscle use, crackles, rales, rhonchi, wheezes Cardiovascular exam: PRESENT: RRR, +S1, +S2, systolic murmur - 2/6 GI/Abdominal exam: PRESENT: normal bowel sounds, soft. ABSENT: distended, firm , guarding, tenderness Extremities exam: PRESENT: other - There is very dry peeling skin on the anterior aspect of both legs. This is likely from significant inflammation. The left leg dressing had come apart. The incisions margins look fairly clean. There was no foul odor. 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 came in 2 days ago with an acute ischemic and is only on aspirin and prophylactic Lovenox and put a Milligan in because he has got an ejection fraction of 10 with congestive heart failure Strict I's and O's and they saw fresh blood in the Milligan that took the catheter back out and then he was streaming blood from his penis so we put a little pressure on the shaft shaft x-ray was engorged a little bit so we put pressure on the shaft and at the time it gradually slowed down but then he urinated and it advice first of all he had to transfer for this but that is for some pressure and Percocet around him 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 garcia would want to be your pain S blood stream and and. ABSENT: agitated, anxious Skin exam: PRESENT: other - The keratinization on the lateral aspect of the left heel cracked and there was some bleeding. Results Laboratory Results: 04/23/18 06:00 04/23/18 06:00 04/23/18 04/23/18 06:00 06:00 WBC 9.7 RBC 2.83 L Hgb 8.0 L Hct 24.3 L MCV 86 MCH 28.2 MCHC 32.9 RDW 14.5 H Plt Count 537 H Sodium 134.7 L Potassium 5.0 Chloride 99 Carbon Dioxide 27 Anion Gap 9 BUN 23 H Creatinine 0.87 Est GFR ( Amer) > 60 Est GFR (Non-Af Amer) > 60 Glucose 254 H Calcium 9.0 C-Reactive Protein 45.0 H 04/18/18 21:02 Leg - Right Side Abscess Gram Stain - Final 04/18/18 21:02 Leg - Right Side Abscess Wound Culture - Final Staphylococcus Aureus Streptococcus Anginosus No Anaerobic Organisms Impressions: Chest X-Ray 04/18/18 11:49 IMPRESSION: NO ACUTE RADIOGRAPHIC FINDING IN THE CHEST. Tibia/Fibula X-Ray 04/18/18 13:37 IMPRESSION: Comminuted fracture of the left medial malleolus. No other significant findings. Assessment & Plan - Diagnosis (1) Necrotizing soft tissue infection Is this a current diagnosis for this admission?: Yes Plan: 04/19/2018-the patient went to surgery yesterday. Bilateral lower extremity abscesses were drained and necrotic ulcerated tissue was excised. He has surgical drains in place. We will continue cefepime and vancomycin. Please also see note from the surgical service. April 20, 2018-surgery is following the patient. Drainage is slightly improved. Please see surgical note. The larger lesion (left leg) might be amenable to a VAC. There is still some tunneling. Defer to surgery. Culture is positive for gram-positive cocci. 04/21/2018-please also see surgical note. Because of the nature of the wound surgery feels that of the VAC would not be appropriate but rather aggressive wound care. Continued antibiotic therapy. 04/22/2018-dressings were changed by surgery today. No further debridement today. See below. 04/23/2018-I do not believe there is going to be any further debridement. The multiple cultures obtained during surgery are growing several bacteria. There is staph aureus predominantly. There is a small amount of Klebsiella and a small amount of Salmonella. There is also Streptococcus sanguinous. I will likely taper back the antibiotics to focus on the staph predominantly. (2) Abscess of leg, left Is this a current diagnosis for this admission?: Yes Plan: 04/19/2018-surgical drainage and debridement carried out yesterday. There is a drain in place. Continue antibiotic therapy. April 20, 2018-cultures pending. Likely staph. Continue current antibiotics. 04/21/2018-culture is still pending. Preliminary is Klebsiella as well as gram- positive cocci in clusters which is usually indicative of staph. Continue vancomycin and cefepime until final results were available. 04/22/2018-preliminary culture results reveal staph aureus, strep species with Klebsiella and Salmonella. I will continue the vancomycin and cefepime for now. Await final culture results before changing antibiotics. 04/23/2018-wound looks clean. Dressing changes are daily. Disposition will need to include wound care. (3) Abscess of leg, right Is this a current diagnosis for this admission?: Yes Plan: As above. (4) Hyperkalemia Is this a current diagnosis for this admission?: Yes Plan: 04/19/2018-with insulin the patient's potassium did drop into the normal range. He is elevated again at 5.5 today. I will give 30 g of Kayexalate x1 dose. I will also resume his long-acting insulin and this will help as well. April 20, 2018-after a single dose of Kayexalate and increased insulin dosing his serum potassium is normal. Continue to monitor. 04/21/2018-patient's serum potassium is back in the normal range. 04/22/2018-recheck potassium in the morning. 04/23/2018-serum potassium is in the normal range today. It is in the upper normal range. I will recheck labs tomorrow. I also changed him to a low potassium diet. (5) Hyponatremia Is this a current diagnosis for this admission?: Yes Plan: 04/19/2018-hyponatremia is mild. Is likely due to elevated glucose. I will continue to monitor as we correct the serum glucose. No fluid restriction at this time. April 20, 2018-currently just below the lower limit normal. Continue to monitor. 04/21/2018-the serum sodium is improved and just below the lower limit normal. No change in therapy at this time. 04/22/2018-recheck electrolytes in the morning 04/23/2018-serum sodium is still 134. No acute intervention. I will continue to monitor the serum sodium level. (6) Iron deficiency anemia Qualifiers: Iron deficiency anemia type: unspecified iron deficiency Qualified Code(s) : D50.9 - Iron deficiency anemia, unspecified Is this a current diagnosis for this admission?: Yes Plan: April 20, 2018-iron studies revealed serum iron of only 17. This is likely from chronic illness. I am going to administer intravenous iron in split doses to equal 500 mg total. Continue to monitor hemoglobin. 04/21/2018-intravenous iron therapy has been ordered. The patient's hemoglobin has dropped again. The patient did receive a unit of packed cells prior to and then again after his initial surgery. I have suggested, and the patient has agreed to an additional unit of packed red blood cells that he will receive today. We will continue to monitor his hemoglobin. 04/22/2018-continue intravenous iron therapy. He did receive 1 unit of packed red blood cells yesterday. Recheck hemoglobin tomorrow. 04/23/2018-the patient is currently on intravenous iron therapy. He will receive a total of 500 mg of iron sucrose. This should reflect in slowly increasing hemoglobin. (7) Hyperglycemia due to type 2 diabetes mellitus Qualifiers: Diabetes mellitus meterman insulin use: with fci use Qualified Code( s): E11.65 - Type 2 diabetes mellitus with hyperglycemia; Z79.4 - jail ( current) use of insulin; Z79.4 - jail (current) use of insulin; Z79.4 - jail (current) use of insulin; Z79.4 - middle or intermediate school principal (current) use of insulin Is this a current diagnosis for this admission?: Yes Plan: 04/19/2018-worsened by bilateral leg abscesses as well as noncompliance. The patient has not taken his insulin for several months. He does remember taking 40 units of some type of insulin daily. Initially was in the evening. He felt that he had better results by taking it in the morning. I will resume Lantus at 25 units for the time being and monitor his sugars. I will adjust the Lantus based on the sliding scale requirements. April 20, 2018-he still has elevated glucoses. Likely related to increased oral intake. I have increased his Lantus to 35 units daily. 04/21/2018-I still do not have adequate control of the patient's sugars. I have increased his Lantus to 40 units and I have structured a more aggressive sliding scale. He is on a carbohydrate consistent diet as well. 04/22/2018-still with variable glucose levels. Part of this is dietary noncompliance. We will continue to monitor. Will try and encourage better compliance to his control carbohydrate diet. [id number] vary widely. I believe this is from noncompliance with his diet. He will range from greater than 200 to less than 100. I will try to reinforce the need to adhere to the controlled carbohydrate diet. (8) Noncompliance Is this a current diagnosis for this admission?: Yes Plan: As noted above the patient has not taken his insulin for several months. No resume long-acting insulin and continue the sliding scale and encourage him to continue the regimen and follow-up with his primary care physician. 04/23/2018-his noncompliance extends to his diet as well. See above. - Time Time Spent with patient: 15-24 minutes Medications reviewed and adjusted accordingly: Yes
--- NOTE | 2018-04-23 22:12 | PDOC PROGRESS REPORT ---
Subjective Progress Note for:: 04/23/18 Reason For Visit: BILATERAL CELLULITIS,ANEMIA,HYPEROSMOLAR Physical Exam Vital Signs: Temp Pulse Resp BP Pulse Ox 98.5 F 99 16 148/77 H 99 04/23/18 16:00 04/23/18 16:00 04/23/18 16:00 04/23/18 16:00 04/23/18 16:00 Intake & Output 04/22/18 04/23/18 04/24/18 06:59 06:59 06:59 Intake Total 2370 2614 750 Output Total 3500 1620 2300 Balance -1130 994 -1550 Weight 89.2 kg 89.5 kg Results Laboratory Results: 04/23/18 06:00 04/23/18 06:00 04/23/18 04/23/18 06:00 06:00 WBC 9.7 RBC 2.83 L Hgb 8.0 L Hct 24.3 L MCV 86 MCH 28.2 MCHC 32.9 RDW 14.5 H Plt Count 537 H Sodium 134.7 L Potassium 5.0 Chloride 99 Carbon Dioxide 27 Anion Gap 9 BUN 23 H Creatinine 0.87 Est GFR ( Amer) > 60 Est GFR (Non-Af Amer) > 60 Glucose 254 H Calcium 9.0 C-Reactive Protein 45.0 H 04/18/18 21:02 Leg - Right Side Abscess Gram Stain - Final 04/18/18 21:02 Leg - Right Side Abscess Wound Culture - Final Staphylococcus Aureus Streptococcus Anginosus No Anaerobic Organisms Impressions: Chest X-Ray 04/18/18 11:49 IMPRESSION: NO ACUTE RADIOGRAPHIC FINDING IN THE CHEST. Tibia/Fibula X-Ray 04/18/18 13:37 IMPRESSION: Comminuted fracture of the left medial malleolus. No other significant findings. Assessment & Plan - Diagnosis (1) Abscess of leg, left Is this a current diagnosis for this admission?: Yes (2) Abscess of leg, right Is this a current diagnosis for this admission?: Yes - Plan Summary Plan Summary: This is a 62-year-old male status post incision and drainage with debridement of abscesses of bilateral lower extremities. The patient today has good granulation tissue, but still with some seropurulent discharge. The patient reports that he is not showering or washing his incisions. I have recommended he get in the shower and wash his incisions with soap and water twice daily. Continue with local wound care.
[2018-04-24 05:29] LABS: HEMATOCRIT 23.9 % (37.9-51.0); HEMOGLOBIN 8.1 g/dL (13.5-17.0); MEAN CORPUSCULAR HEMOGLOBIN 28.9 pg (27.0-33.4); MEAN CORPUSCULAR HGB CONC 33.8 g/dL (32.0-36.0); MEAN CORPUSCULAR VOLUME 86 fl (80-97); PLATELET COUNT 592 10^3/uL (150-450); RED BLOOD COUNT 2.79 10^6/uL (4.35-5.55); RED CELL DISTRIBUTION WIDTH 14.2 % (11.5-14.0); WHITE BLOOD COUNT 9.6 10^3/uL (4.0-10.5)
[2018-04-24] MEDS: CEFEPIME 2 GM/D5W RTU 2 GM/50 ML RTUPB IV SCH ×2 (05:40→18:43)
[2018-04-24 05:54] LABS: ANION GAP 10 (5-19); BLOOD UREA NITROGEN 21 mg/dL (7-20); C-REACTIVE PROTEIN 45.8 mg/L (<10.0); CALCIUM 9.5 mg/dL (8.4-10.2); CARBON DIOXIDE 27 mmol/L (22-30); CHLORIDE 102 mmol/L (98-107); GLUCOSE 78 mg/dL (75-110); POTASSIUM 4.7 mmol/L (3.6-5.0); SODIUM 139.4 mmol/L (137-145)
[2018-04-24] MEDS: VANCOMYCIN HCL 1,500 MG in DEXTROSE 5%-WATER 250 ML IV SCH ×2 (06:50→21:07)
[2018-04-24] MEDS: DOCUSATE SODIUM 100 MG CAPSULE PO SCH (11:13)
[2018-04-24] MEDS: IRON SUCROSE COMPLEX 100 MG in NORMAL SALINE 100 ML IV SCH (11:13)
[2018-04-24] MEDS: PANTOT AC/MIN OIL/PET HY-PHL OINT 50 GM TOP SCH ×3 (11:13→18:44)
[2018-04-24] MEDS: INSULIN GLARGINE,HUM.REC.ANLOG 300 UNIT/3 ML INSULN.PEN SUBCUT SCH (11:14)
[2018-04-24] MEDS: SENNOSIDES/DOCUSATE 8.6-50 MG 1 EACH TABLET PO SCH (11:14)
--- NOTE | 2018-04-24 13:03 | PDOC PROGRESS REPORT ---
Subjective Progress Note for:: 04/24/18 Subjective:: No complaints Reason For Visit: BILATERAL CELLULITIS,ANEMIA,HYPEROSMOLAR Physical Exam Vital Signs: Temp Pulse Resp BP Pulse Ox 98.1 F 84 19 155/78 H 100 04/24/18 08:02 04/24/18 08:02 04/24/18 08:02 04/24/18 08:02 04/24/18 08:02 Intake & Output 04/23/18 04/24/18 04/25/18 06:59 06:59 06:59 Intake Total 2614 1650 Output Total 1620 3700 Balance 994 -2050 Weight 89.5 kg 91.2 kg General appearance: PRESENT: no acute distress, cooperative Extremities exam: PRESENT: other - Bilateral lower extremity wounds appear clean. Dressings removed and repacked. Granulations tissue seen. Scant amount of fluid from the undermined areas of bilateral lower extremity. Results Laboratory Results: 04/24/18 05:07 04/24/18 05:07 04/24/18 04/24/18 05:07 05:07 WBC 9.6 RBC 2.79 L Hgb 8.1 L Hct 23.9 L MCV 86 MCH 28.9 MCHC 33.8 RDW 14.2 H Plt Count 592 H Sodium 139.4 Potassium 4.7 Chloride 102 Carbon Dioxide 27 Anion Gap 10 BUN 21 H Creatinine 0.78 Est GFR ( Amer) > 60 Est GFR (Non-Af Amer) > 60 Glucose 78 Calcium 9.5 Magnesium 1.9 C-Reactive Protein 45.8 H 04/18/18 21:02 Leg - Right Side Abscess Gram Stain - Final 04/18/18 21:02 Leg - Right Side Abscess Wound Culture - Final Staphylococcus Aureus Streptococcus Anginosus No Anaerobic Organisms Impressions: Chest X-Ray 04/18/18 11:49 IMPRESSION: NO ACUTE RADIOGRAPHIC FINDING IN THE CHEST. Tibia/Fibula X-Ray 04/18/18 13:37 IMPRESSION: Comminuted fracture of the left medial malleolus. No other significant findings. Assessment & Plan - Diagnosis (1) Multiple abscesses of both legs Is this a current diagnosis for this admission?: Yes Plan: Looks pretty good but I think it would be tough to get appropriate wound care for the larger wounds of his lower leg without a wound VAC at home. Because of the undermining involved, wound VAC is not the perfect solution however I think it is the best treatment as an outpatient. Will obtain home health consult for wound VAC placement. I have discussed with the nursing staff about the proper application of the wound VAC in these undermined wounds. The smaller wounds may be taken care of with normal saline wet-to-dry dressing changes. Once wound VAC is set up, may discharge patient home from surgical standpoint. Please arrange follow-up at the wound care clinic as an outpatient.
[2018-04-24] MEDS: INSULIN LISPRO 100 UNIT/ML 3 ML VIAL SUBCUT PRN ×2 (13:57→22:58)
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
--- NOTE | 2018-04-24 20:31 | RADIOLOGY REPORT (SQ) ---
EXAM DESCRIPTION: ANKLE LEFT COMPLETE COMPLETED DATE/TIME: 04/24/2018 7:50 pm REASON FOR STUDY: left medial malleolus fracture COMPARISON: None. NUMBER OF VIEWS: Three views. TECHNIQUE: AP, lateral, and oblique radiographic images acquired of the left ankle. LIMITATIONS: None. FINDINGS: MINERALIZATION: Normal. BONES: Transverse fracture of the medial malleolus. JOINTS: No effusions. SOFT TISSUES: No soft tissue swelling. No foreign body. OTHER: No other significant finding. IMPRESSION: Medial malleolar fracture. TECHNICAL DOCUMENTATION: JOB ID: [id number] [employer]- All Rights Reserved Reading location - IP/workstation name: [email or web address]
[2018-04-25] MEDS: CEFEPIME 2 GM/D5W RTU 2 GM/50 ML RTUPB IV SCH (05:18)
[2018-04-25] MEDS: VANCOMYCIN HCL 1,500 MG in DEXTROSE 5%-WATER 250 ML IV SCH (05:20)
[2018-04-25] MEDS: INSULIN LISPRO 100 UNIT/ML 3 ML VIAL SUBCUT PRN ×3 (07:38→17:02)
[2018-04-25] MEDS: PANTOT AC/MIN OIL/PET HY-PHL OINT 50 GM TOP SCH ×3 (09:32→17:02)
[2018-04-25] MEDS: INSULIN GLARGINE,HUM.REC.ANLOG 300 UNIT/3 ML INSULN.PEN SUBCUT SCH (09:33)
[2018-04-25] MEDS: DOCUSATE SODIUM 100 MG CAPSULE PO SCH (09:33)
[2018-04-25] MEDS: SENNOSIDES/DOCUSATE 8.6-50 MG 1 EACH TABLET PO SCH (09:33)
--- NOTE | 2018-04-25 09:55 | PDOC PROGRESS REPORT ---
Subjective Progress Note for:: 04/25/18 Subjective:: mild pains on both legs Reason For Visit: BILATERAL CELLULITIS,ANEMIA,HYPEROSMOLAR Physical Exam Vital Signs: Temp Pulse Resp BP Pulse Ox 98.0 F 66 19 117/68 99 04/25/18 07:54 04/25/18 07:54 04/25/18 07:54 04/25/18 07:54 04/25/18 07:54 Intake & Output 04/24/18 04/25/18 04/26/18 06:59 06:59 06:59 Intake Total 1700 2596 Output Total 3700 4250 Balance -1999 -1653 Weight 91.2 kg 94.9 kg Exam: wound vac in both legs. Able to move left ankle now with decreased swelling. Wound vacs are in place for both leg ulcers. Swelling for both legs subsided Results Laboratory Results: 04/24/18 05:07 04/24/18 05:07 Impressions: Chest X-Ray 04/18/18 11:49 IMPRESSION: NO ACUTE RADIOGRAPHIC FINDING IN THE CHEST. Tibia/Fibula X-Ray 04/18/18 13:37 IMPRESSION: Comminuted fracture of the left medial malleolus. No other significant findings. Ankle X-Ray 04/24/18 00:00 IMPRESSION: Medial malleolar fracture. Assessment & Plan - Time Time Spent with patient: 15-24 minutes - Plan Summary Plan Summary: OK to arrange home wound vacs. Follow up at the wound care center in 1-2 weeks.
--- NOTE | 2018-04-25 10:40 | Progress Note ---
Provider Note Provider Note: ID Consult Note Asked to review patient's chart by Pharmacy. Pt not seen or examined. Mr. Jarett Anthony is a 62 year old man with DM, diabetic neuropathy, and prior RLE soft tissue infection requiring surgical debridement and fasciotomy who was admitted for b/l leg ulcers and abscesses on 04/18/18, ongoing x 4 weeks with malodor. On presentation pt was afebrile. He was noted to have swelling of BLE circumferentially, multiple acute and chronic wounds and scar to the RLE with several actively draining pus, and several seropurulent wounds to anterior crisostomo of LLE. Initial labs were notable for elevated plt count, mild leukocytosis, normocytic anemia, and blood glucose nearly 700. CRP this admission was 45. Blood cultures showed no growth. Debridement was performed on 04/18/18 for soft tissue infection of BLE with extensive abscesses. Per operative note, the LLE required debridement of subcutaneous pus and debridment of nonviable tissue and [place] drain placement for infection confined to the superficial and deep cutaneous layers. The RLE also required incision to remove necrotic, purulent discharge with excision of subcutaneous tissue, skin, fascia, and muscle. Intraoperative cultures showed growth of 4+ MSSA and 4+ Strep anginosus from one wound, 4+ MSSA and Klebsiella pneumoniae from broth subculture only from another wound, and from a third wound 3+ MSSA and skin kj with Salmonella species detected from broth subculture only. Plain films of the right and left tib/fib showed comminuted fx of L medial malleolus but no other significant findings. In terms of antimicrobial therapy, pt has been receieving cefepime from 04/18 to present and vancomycin from 04/18 to present. Most recently, wounds to BLE have been noted to be clean appearing with granulation tissue and scant fluid from undermined areas. Impression/Recommendations Bilateral lower extremity skin abscesses and RLE fasciitis and myositis - Pt with purulent and necrotizing soft tissue infections of the lower extremities with 4+ growth of MSSA and Streptococcus anginosus and very small amounts of Klebsiella pneumoniae and Salmonella species detected in broth subculture only, which has questionable significance clinically, after adequate debridement. Pt hemodynamically stable, not requiring repeat debridement, and at this point has clean appearing wounds - Empirically, pt received broad spectrum antibiotic therapy as appropriate, pending culture results. However, no MRSA or Pseudomonas has been isolated to necessitate anti-MRSA or anti-pseudomonal activity. - Pt has received 6 days of vancomycin and cefepime. Today is day 7 of antibiotics. Recommend discontinuing vancomycin. Can change cefepime to cefazolin 2 g q8h daily while inpatient, then PO Keflex 500 mg QID as an outpatient to complete the remainder of 14 days of treatment. Jeff aguilera MD [facility] Infectious Diseases pager [phone]
--- NOTE | 2018-04-25 16:27 | PDOC PROGRESS REPORT ---
Subjective Progress Note for:: 04/24/18 Subjective:: 04/19/2018-the patient is postop day 1. He reports feeling slightly better. He is not complaining of significant pain in his legs this morning. He was able to eat breakfast. He did receive 1 unit of packed red blood cells last night. April 20, 2018-the patient is quite comfortable this morning. There is slightly less drainage from his leg wounds today. 04/21/2018-the patient had further debridement at the bedside by Dr. Lainez. Please see surgical note. The patient is quite comfortable this morning and in fact is eating lunch. 04/22/2018-resting comfortably eating lunch. 04/23/2018-the patient is in good spirits. There was some bleeding on the lateral aspect of his left heel and the dressing on his left leg has slid down. 04/24/2018-resting comfortably. No new complaints. Reason For Visit: BILATERAL CELLULITIS,ANEMIA,HYPEROSMOLAR Physical Exam Vital Signs: Temp Pulse Resp BP Pulse Ox 97.9 F 88 16 115/60 99 04/25/18 11:45 04/25/18 11:45 04/25/18 11:45 04/25/18 11:45 04/25/18 11:45 Intake & Output 04/24/18 04/25/18 04/26/18 06:59 06:59 06:59 Intake Total 1700 2596 250 Output Total 3700 4250 Balance -1999 -1654 250 Weight 91.2 kg 94.9 kg General appearance: PRESENT: no acute distress, cooperative, well-developed Respiratory exam: PRESENT: clear to auscultation sania, symmetrical, unlabored. ABSENT: rales, rhonchi, wheezes Cardiovascular exam: PRESENT: RRR, +S1, +S2, systolic murmur - 2/6 GI/Abdominal exam: PRESENT: normal bowel sounds, soft. ABSENT: tenderness Musculoskeletal exam: PRESENT: other - No discomfort with movement left ankle Neurological exam: PRESENT: alert, awake, oriented to person, oriented to place , oriented to time, oriented to situation, CN II-XII grossly intact Psychiatric exam: PRESENT: appropriate affect, normal mood Results Laboratory Results: 04/24/18 05:07 04/24/18 05:07 Impressions: Chest X-Ray 04/18/18 11:49 IMPRESSION: NO ACUTE RADIOGRAPHIC FINDING IN THE CHEST. Tibia/Fibula X-Ray 04/18/18 13:37 IMPRESSION: Comminuted fracture of the left medial malleolus. No other significant findings. Ankle X-Ray 04/24/18 00:00 IMPRESSION: Medial malleolar fracture. Assessment & Plan - Diagnosis (1) Necrotizing soft tissue infection Is this a current diagnosis for this admission?: Yes Plan: 04/19/2018-the patient went to surgery yesterday. Bilateral lower extremity abscesses were drained and necrotic ulcerated tissue was excised. He has surgical drains in place. We will continue cefepime and vancomycin. Please also see note from the surgical service. April 20, 2018-surgery is following the patient. Drainage is slightly improved. Please see surgical note. The larger lesion (left leg) might be amenable to a VAC. There is still some tunneling. Defer to surgery. Culture is positive for gram-positive cocci. 04/21/2018-please also see surgical note. Because of the nature of the wound surgery feels that of the VAC would not be appropriate but rather aggressive wound care. Continued antibiotic therapy. 04/22/2018-dressings were changed by surgery today. No further debridement today. See below. 04/23/2018-I do not believe there is going to be any further debridement. The multiple cultures obtained during surgery are growing several bacteria. There is staph aureus predominantly. There is a small amount of Klebsiella and a small amount of Salmonella. There is also Streptococcus sanguinous. I will likely taper back the antibiotics to focus on the staph predominantly. 04/24/2018-with the aggressive debridement is likely we may build to narrow or stop the antibiotic therapy. (2) Abscess of leg, left Is this a current diagnosis for this admission?: Yes Plan: 04/19/2018-surgical drainage and debridement carried out yesterday. There is a drain in place. Continue antibiotic therapy. April 20, 2018-cultures pending. Likely staph. Continue current antibiotics. 04/21/2018-culture is still pending. Preliminary is Klebsiella as well as gram- positive cocci in clusters which is usually indicative of staph. Continue vancomycin and cefepime until final results were available. 04/22/2018-preliminary culture results reveal staph aureus, strep species with Klebsiella and Salmonella. I will continue the vancomycin and cefepime for now. Await final culture results before changing antibiotics. 04/23/2018-wound looks clean. Dressing changes are daily. Disposition will need to include wound care. 04/24/2018-surgery will be following the patient. In addition the patient will need follow-up at the wound care center or with surgery. (3) Abscess of leg, right Is this a current diagnosis for this admission?: Yes Plan: As above. (4) Hyperkalemia Is this a current diagnosis for this admission?: Yes Plan: 04/19/2018-with insulin the patient's potassium did drop into the normal range. He is elevated again at 5.5 today. I will give 30 g of Kayexalate x1 dose. I will also resume his long-acting insulin and this will help as well. April 20, 2018-after a single dose of Kayexalate and increased insulin dosing his serum potassium is normal. Continue to monitor. 04/21/2018-patient's serum potassium is back in the normal range. 04/22/2018-recheck potassium in the morning. 04/23/2018-serum potassium is in the normal range today. It is in the upper normal range. I will recheck labs tomorrow. I also changed him to a low potassium diet. 04/24/2018-serum potassium normal today. (5) Hyponatremia Is this a current diagnosis for this admission?: Yes Plan: 04/19/2018-hyponatremia is mild. Is likely due to elevated glucose. I will continue to monitor as we correct the serum glucose. No fluid restriction at this time. April 20, 2018-currently just below the lower limit normal. Continue to monitor. 04/21/2018-the serum sodium is improved and just below the lower limit normal. No change in therapy at this time. 04/22/2018-recheck electrolytes in the morning 04/23/2018-serum sodium is still 134. No acute intervention. I will continue to monitor the serum sodium level. 04/24/2018-serum sodium normal again. (6) Iron deficiency anemia Qualifiers: Iron deficiency anemia type: unspecified iron deficiency Qualified Code(s) : D50.9 - Iron deficiency anemia, unspecified Is this a current diagnosis for this admission?: Yes Plan: April 20, 2018-iron studies revealed serum iron of only 17. This is likely from chronic illness. I am going to administer intravenous iron in split doses to equal 500 mg total. Continue to monitor hemoglobin. 04/21/2018-intravenous iron therapy has been ordered. The patient's hemoglobin has dropped again. The patient did receive a unit of packed cells prior to and then again after his initial surgery. I have suggested, and the patient has agreed to an additional unit of packed red blood cells that he will receive today. We will continue to monitor his hemoglobin. 04/22/2018-continue intravenous iron therapy. He did receive 1 unit of packed red blood cells yesterday. Recheck hemoglobin tomorrow. 04/23/2018-the patient is currently on intravenous iron therapy. He will receive a total of 500 mg of iron sucrose. This should reflect in slowly increasing hemoglobin. 04/24/2018-hemoglobin has been stable. Continue IV iron regimen. (7) Hyperglycemia due to type 2 diabetes mellitus Qualifiers: Diabetes mellitus custodial insulin use: with custodial use Qualified Code( s): E11.65 - Type 2 diabetes mellitus with hyperglycemia; Z79.4 - prison ( current) use of insulin; Z79.4 - termite exterminator (current) use of insulin; Z79.4 - prison (current) use of insulin; Z79.4 - prison (current) use of insulin Is this a current diagnosis for this admission?: Yes Plan: 04/19/2018-worsened by bilateral leg abscesses as well as noncompliance. The patient has not taken his insulin for several months. He does remember taking 40 units of some type of insulin daily. Initially was in the evening. He felt that he had better results by taking it in the morning. I will resume Lantus at 25 units for the time being and monitor his sugars. I will adjust the Lantus based on the sliding scale requirements. April 20, 2018-he still has elevated glucoses. Likely related to increased oral intake. I have increased his Lantus to 35 units daily. 04/21/2018-I still do not have adequate control of the patient's sugars. I have increased his Lantus to 40 units and I have structured a more aggressive sliding scale. He is on a carbohydrate consistent diet as well. 04/22/2018-still with variable glucose levels. Part of this is dietary noncompliance. We will continue to monitor. Will try and encourage better compliance to his control carbohydrate diet. 04/23/[id number]-Umet-Pksxf vary widely. I believe this is from noncompliance with his diet. He will range from greater than 200 to less than 100. I will try to reinforce the need to adhere to the controlled carbohydrate diet. 04/24/2018-still wide range for Accu-Cheks. Try to encourage dietary compliance. (8) Noncompliance Is this a current diagnosis for this admission?: Yes - Time Time Spent with patient: 15-24 minutes Medications reviewed and adjusted accordingly: Yes
--- NOTE | 2018-04-25 17:25 | PDOC PROGRESS REPORT ---
Subjective Progress Note for:: 04/25/18 Subjective:: Patient was given the cam walking boot. No pain. No issues overnight. Reason For Visit: BILATERAL CELLULITIS,ANEMIA,HYPEROSMOLAR Physical Exam Vital Signs: Temp Pulse Resp BP Pulse Ox 36.6 C 90 17 133/68 H 99 04/25/18 16:01 04/25/18 16:01 04/25/18 16:01 04/25/18 16:01 04/25/18 16:01 Intake & Output 04/24/18 04/25/18 04/26/18 06:59 06:59 06:59 Intake Total 1700 2596 250 Output Total 3700 4250 Balance -1999 -4 250 Weight 91.2 kg 94.9 kg Adult Front & Back Image: 1 - Boot is in place. There is no crepitus or tenderness over the medial malleolus but the patient does have baseline diabetic neuropathy of bilateral lower extremities as high as mid tibias. Results Laboratory Results: 04/24/18 05:07 04/24/18 05:07 Impressions: Chest X-Ray 04/18/18 11:49 IMPRESSION: NO ACUTE RADIOGRAPHIC FINDING IN THE CHEST. Tibia/Fibula X-Ray 04/18/18 13:37 IMPRESSION: Comminuted fracture of the left medial malleolus. No other significant findings. Ankle X-Ray 04/24/18 00:00 IMPRESSION: Medial malleolar fracture. Assessment & Plan - Diagnosis (1) Fractured medial malleolus Qualifiers: Encounter type: initial encounter Fracture type: closed Fracture alignment: nondisplaced Laterality: left Qualified Code(s): S82.55XA - Nondisplaced fracture of medial malleolus of left tibia, initial encounter for closed fracture Is this a current diagnosis for this admission?: Yes Plan: 62-year-old gentleman who I believe has nondisplaced right medial malleolus ankle fracture. New x-rays of her ankle show no further displacement but actually I see some callus formation compared to the initial images a week ago. I do believe this fracture may have occurred several weeks before. There is no crepitus of motion at the fracture site. Will discontinue weight-bear as tolerated with the Cam walking boot. He can take the boot off when laying in bed. He can follow-up with orthopedics once discharged from the hospital in a few weeks.
--- NOTE | 2018-04-25 19:49 | PDOC PROGRESS REPORT ---
Subjective Progress Note for:: 04/25/18 - Seen on rounds this afternoon Subjective:: Spoke with patient at bedside and he wants to know when he can go home. He does have wound vacs on both of his lower extremities. I told him that he needs continued treatment with his IV antibiotics. He does understand but he is not happy about it Reason For Visit: BILATERAL CELLULITIS,ANEMIA,HYPEROSMOLAR Physical Exam Vital Signs: Temp Pulse Resp BP Pulse Ox 97.9 F 90 17 133/68 H 99 04/25/18 16:01 04/25/18 16:01 04/25/18 16:01 04/25/18 16:01 04/25/18 16:01 Intake & Output 04/24/18 04/25/18 04/26/18 06:59 06:59 06:59 Intake Total 1700 2596 1450 Output Total 3700 4250 1150 Balance -1999 -1653 300 Weight 201 lb 0.985 oz 209 lb 3.499 oz General appearance: PRESENT: no acute distress Head exam: PRESENT: atraumatic, normocephalic Eye exam: PRESENT: EOMI. ABSENT: conjunctival injection, scleral icterus Ear exam: PRESENT: normal external ear exam Mouth exam: PRESENT: neck supple, tongue midline Neck exam: ABSENT: tracheal deviation Respiratory exam: PRESENT: clear to auscultation sania, symmetrical Cardiovascular exam: PRESENT: +S1, +S2 Pulses: PRESENT: +1 pedal pulses bilateral GI/Abdominal exam: PRESENT: normal bowel sounds, soft. ABSENT: tenderness Extremities exam: PRESENT: tenderness - Mild tender to palpation of the lower extremities, +1 edema, other - Lower extremity bilaterally with wound vacs noted -no open areas of sores noted-he does have some edema bilaterally Neurological exam: PRESENT: alert, awake, oriented to person, oriented to place , oriented to time, oriented to situation, CN II-XII grossly intact Skin exam: PRESENT: dry, warm Results Laboratory Results: 04/24/18 05:07 04/24/18 05:07 Impressions: Chest X-Ray 04/18/18 11:49 IMPRESSION: NO ACUTE RADIOGRAPHIC FINDING IN THE CHEST. Tibia/Fibula X-Ray 04/18/18 13:37 IMPRESSION: Comminuted fracture of the left medial malleolus. No other significant findings. Ankle X-Ray 04/24/18 00:00 IMPRESSION: Medial malleolar fracture. Assessment & Plan - Diagnosis (1) Abscess of leg, left Is this a current diagnosis for this admission?: Yes (2) Abscess of leg, right Is this a current diagnosis for this admission?: Yes (3) Hyperkalemia Is this a current diagnosis for this admission?: Yes (4) Multiple abscesses of both legs Is this a current diagnosis for this admission?: Yes (5) Necrotizing soft tissue infection Is this a current diagnosis for this admission?: Yes (6) Hyponatremia Is this a current diagnosis for this admission?: Yes (7) Diabetes mellitus type 2 in nonobese Is this a current diagnosis for this admission?: Yes - Plan Summary Plan Summary: Bilateral lower extremity abscess/cellulitis-currently on Ancef every 8h, I appreciate note by infectious disease and will transition him to Keflex 4 times daily when ready. Currently it is day 7 and infectious disease would like us to continue his antibiotic for total of 14 days. Currently he does have wound vacs in his lower extremities. I have spoken with case management about discharge plans and having wound VAC at home. Case management has not updated me about home health with his wounds. When this is ready we will get ready to discharge him. Diabetes mellitus-continue with Lantus and sliding scale insulin.
[2018-04-25] MEDS: CEFAZOLIN 2 GM/D5W RTU 2 GM/50 ML RTUPB IV SCH (22:44)
[2018-04-26] MEDS: CEFAZOLIN 2 GM/D5W RTU 2 GM/50 ML RTUPB IV SCH ×3 (05:07→21:54)
[2018-04-26] MEDS: INSULIN LISPRO 100 UNIT/ML 3 ML VIAL SUBCUT PRN ×4 (07:45→21:53)
[2018-04-26] MEDS: SENNOSIDES/DOCUSATE 8.6-50 MG 1 EACH TABLET PO SCH (10:02)
[2018-04-26] MEDS: DOCUSATE SODIUM 100 MG CAPSULE PO SCH (10:02)
[2018-04-26] MEDS: IRON SUCROSE COMPLEX 100 MG in NORMAL SALINE 100 ML IV SCH (10:03)
[2018-04-26] MEDS: INSULIN GLARGINE,HUM.REC.ANLOG 300 UNIT/3 ML INSULN.PEN SUBCUT SCH (10:03)
[2018-04-26] MEDS: PANTOT AC/MIN OIL/PET HY-PHL OINT 50 GM TOP SCH ×3 (10:05→17:23)
--- NOTE | 2018-04-26 12:04 | PDOC PROGRESS REPORT ---
Subjective Progress Note for:: 04/26/18 - seen on rounds this morning Subjective:: has no acute complaints- tells me that his legs are thinner now- states he can move his joints better now- he's excited that his legs are better. no acute complaints this morning Reason For Visit: BILATERAL CELLULITIS,ANEMIA,HYPEROSMOLAR Physical Exam Vital Signs: Temp Pulse Resp BP Pulse Ox 97.5 F 82 17 133/73 H 100 04/26/18 07:46 04/26/18 07:46 04/26/18 07:46 04/26/18 07:46 04/26/18 07:46 Intake & Output 04/25/18 04/26/18 04/27/18 06:59 06:59 06:59 Intake Total 2696 1994 100 Output Total 4250 1150 Balance -1554 844 100 Weight 209 lb 3.499 oz 197 lb 12.074 oz General appearance: PRESENT: no acute distress Head exam: PRESENT: atraumatic, normocephalic Eye exam: PRESENT: EOMI. ABSENT: conjunctival injection, scleral icterus Ear exam: PRESENT: normal external ear exam Mouth exam: PRESENT: tongue midline Neck exam: ABSENT: tracheal deviation Respiratory exam: PRESENT: clear to auscultation sania, symmetrical Cardiovascular exam: PRESENT: +S1, +S2 GI/Abdominal exam: PRESENT: normal bowel sounds, soft. ABSENT: tenderness Extremities exam: PRESENT: +1 edema - b/l LE at the ankle and feet, other - b/l LE wound vac noted- minimal TTP Neurological exam: PRESENT: alert, awake, oriented to person, oriented to place , oriented to time, oriented to situation, CN II-XII grossly intact Skin exam: PRESENT: dry, warm Results Laboratory Results: 04/24/18 05:07 04/24/18 05:07 Impressions: Chest X-Ray 04/18/18 11:49 IMPRESSION: NO ACUTE RADIOGRAPHIC FINDING IN THE CHEST. Tibia/Fibula X-Ray 04/18/18 13:37 IMPRESSION: Comminuted fracture of the left medial malleolus. No other significant findings. Ankle X-Ray 04/24/18 00:00 IMPRESSION: Medial malleolar fracture. Assessment & Plan - Diagnosis (1) Abscess of leg, left Is this a current diagnosis for this admission?: Yes (2) Abscess of leg, right Is this a current diagnosis for this admission?: Yes (3) Hyperkalemia Is this a current diagnosis for this admission?: Yes (4) Multiple abscesses of both legs Is this a current diagnosis for this admission?: Yes (5) Necrotizing soft tissue infection Is this a current diagnosis for this admission?: Yes (6) Hyponatremia Is this a current diagnosis for this admission?: Yes (7) Diabetes mellitus type 2 in nonobese Is this a current diagnosis for this admission?: Yes (8) Fractured medial malleolus Qualifiers: Encounter type: initial encounter Fracture type: closed Fracture alignment: nondisplaced Laterality: left Qualified Code(s): S82.55XA - Nondisplaced fracture of medial malleolus of left tibia, initial encounter for closed fracture Is this a current diagnosis for this admission?: Yes - Plan Summary Plan Summary: Bilateral lower extremity abscess/cellulitis-c/w on Ancef every 8h, I appreciate note by infectious disease and will transition him to Keflex 4 times daily when ready. Currently it is day 8 and infectious disease would like us to continue his antibiotic for total of 14 days. Currently he does have wound vacs in his lower extremities. I have spoken with case management about discharge plans and having wound VAC at home. spoke with Cm again today- she's working on home wound vac and place. When this is ready we will get ready to discharge him. d/c butch today right malleolar fx- i appreciate help by Ortho- they recommend Cam boot- and he will need follow up outpatient with ortho- i did speak with him about this today. he's aware of plan Diabetes mellitus-continue with Lantus and sliding scale insulin.
[2018-04-27] MEDS: CEFAZOLIN 2 GM/D5W RTU 2 GM/50 ML RTUPB IV SCH ×3 (05:35→22:13)
[2018-04-27] MEDS: INSULIN LISPRO 100 UNIT/ML 3 ML VIAL SUBCUT PRN ×4 (07:37→22:22)
[2018-04-27] MEDS: INSULIN GLARGINE,HUM.REC.ANLOG 300 UNIT/3 ML INSULN.PEN SUBCUT SCH (09:47)
[2018-04-27] MEDS: SENNOSIDES/DOCUSATE 8.6-50 MG 1 EACH TABLET PO SCH (09:47)
[2018-04-27] MEDS: DOCUSATE SODIUM 100 MG CAPSULE PO SCH (09:47)
[2018-04-27] MEDS: PANTOT AC/MIN OIL/PET HY-PHL OINT 50 GM TOP SCH ×3 (09:47→17:34)
[2018-04-27] MEDS ORDERED: POTASSI CL 20 MEQ/D5-1/2NS 1L 1000 ML IV PRN (12:11)
--- NOTE | 2018-04-27 12:22 | PDOC PROGRESS REPORT ---
Subjective Progress Note for:: 04/27/18 Subjective:: Spoke with patient this morning and he is eager to go home. I told him that the wound VAC is still not ready by case management and he needs that before his discharge. I told him that it may take 1-2 days and he is not happy about this. He tells me today that his leg feels better and he has been walking with a walker and doing better Reason For Visit: BILATERAL CELLULITIS,ANEMIA,HYPEROSMOLAR Physical Exam Vital Signs: Temp Pulse Resp BP Pulse Ox 97.9 F 94 18 150/68 H 100 04/27/18 11:24 04/27/18 11:24 04/27/18 11:24 04/27/18 11:24 04/27/18 11:24 Intake & Output 04/26/18 04/27/18 04/28/18 06:59 06:59 06:59 Intake Total 1993 263 Output Total 1150 4400 Balance 844 -1765 Weight 197 lb 12.074 oz General appearance: PRESENT: no acute distress Head exam: PRESENT: atraumatic, normocephalic Eye exam: PRESENT: EOMI. ABSENT: conjunctival injection, scleral icterus Ear exam: PRESENT: normal external ear exam Neck exam: ABSENT: tracheal deviation Respiratory exam: PRESENT: clear to auscultation sania, symmetrical Cardiovascular exam: PRESENT: +S1, +S2 GI/Abdominal exam: PRESENT: normal bowel sounds, soft. ABSENT: tenderness Extremities exam: PRESENT: tenderness - bilateral lower LE- wound vac noted- mild TTP of the crisostomo- no signs of infection- distal pulse intact Neurological exam: PRESENT: alert, awake, oriented to person, oriented to place , oriented to time, oriented to situation, CN II-XII grossly intact Results Laboratory Results: 04/24/18 05:07 04/24/18 05:07 04/18/18 21:00 Leg - Left Side Abscess Gram Stain - Final 04/18/18 21:00 Leg - Left Side Abscess Wound Culture - Final Staphylococcus Aureus Klebsiella Pneumoniae No Anaerobic Organisms Impressions: Chest X-Ray 04/18/18 11:49 IMPRESSION: NO ACUTE RADIOGRAPHIC FINDING IN THE CHEST. Tibia/Fibula X-Ray 04/18/18 13:37 IMPRESSION: Comminuted fracture of the left medial malleolus. No other significant findings. Ankle X-Ray 04/24/18 00:00 IMPRESSION: Medial malleolar fracture. Assessment & Plan - Diagnosis (1) Abscess of leg, left Is this a current diagnosis for this admission?: Yes (2) Abscess of leg, right Is this a current diagnosis for this admission?: Yes (3) Hyperkalemia Is this a current diagnosis for this admission?: Yes (4) Multiple abscesses of both legs Is this a current diagnosis for this admission?: Yes (5) Necrotizing soft tissue infection Is this a current diagnosis for this admission?: Yes (6) Hyponatremia Is this a current diagnosis for this admission?: Yes (7) Diabetes mellitus type 2 in nonobese Is this a current diagnosis for this admission?: Yes (8) Fractured medial malleolus Qualifiers: Encounter type: initial encounter Fracture type: closed Fracture alignment: nondisplaced Laterality: left Qualified Code(s): S82.55XA - Nondisplaced fracture of medial malleolus of left tibia, initial encounter for closed fracture Is this a current diagnosis for this admission?: Yes (9) Iron deficiency anemia Qualifiers: Iron deficiency anemia type: unspecified iron deficiency Qualified Code(s) : D50.9 - Iron deficiency anemia, unspecified Is this a current diagnosis for this admission?: Yes - Plan Summary Plan Summary: We are waiting for wound VAC to be delivered so he can take it home and continue with his wound care. Case management is going to update us tomorrow when wound VAC will be ready for discharge Bilateral lower extremity abscess/cellulitis-c/w on Ancef every 8h, I appreciate note by infectious disease and will transition him to Keflex 4 times daily when ready. Currently it is day 9 and infectious disease would like us to continue his antibiotic for total of 14 days. Currently he does have wound vacs in his lower extremities. I have spoken with case management about discharge plans and having wound VAC at home. spoke with Cm again- she's working on home wound vac and place. When this is ready we will get ready to discharge him. right malleolar fx- i appreciate help by Ortho- they recommend Cam boot- and he will need follow up outpatient follow-up with ortho- i did speak with him about this. he's aware of plan Diabetes mellitus-continue with Lantus and sliding scale insulin. [id number] suspect that this may be due to chronic disease. Currently he is on IV Venofer. We will transition him to p.o. iron supplements. I do not know what his baseline is but it has been stable. There is no signs of active bleeding.
[2018-04-28] MEDS: CEFAZOLIN 2 GM/D5W RTU 2 GM/50 ML RTUPB IV SCH ×2 (05:10→16:45)
[2018-04-28] MEDS: INSULIN GLARGINE,HUM.REC.ANLOG 300 UNIT/3 ML INSULN.PEN SUBCUT SCH (10:03)
[2018-04-28] MEDS: SENNOSIDES/DOCUSATE 8.6-50 MG 1 EACH TABLET PO SCH (10:03)
[2018-04-28] MEDS: DOCUSATE SODIUM 100 MG CAPSULE PO SCH (10:03)
[2018-04-28] MEDS: IRON SUCROSE COMPLEX 100 MG in NORMAL SALINE 100 ML IV SCH (10:03)
[2018-04-28] MEDS: PANTOT AC/MIN OIL/PET HY-PHL OINT 50 GM TOP SCH ×3 (10:05→17:23)
[2018-04-28] MEDS: INSULIN LISPRO 100 UNIT/ML 3 ML VIAL SUBCUT PRN (12:54)
[2018-04-28 14:07] VITALS: BP 150/68
--- NOTE | 2018-04-28 16:35 | PDOC DISCHARGE SUMMARY ---
General - Admit/Disc Date/PCP Admission Date/Primary Care Provider: 04/18/18 15:21 Discharge Date: 04/28/18 - Discharge Diagnosis (1) Diabetes mellitus type 2 in nonobese Is this a current diagnosis for this admission?: Yes Summary: He said he is out of prescriptions for his insulin, so I provided these. (2) Fractured medial malleolus Is this a current diagnosis for this admission?: Yes Summary: Right medial malleolus. Orthopedics recommended a walking boot that he can have off while he is in bed. (3) Multiple abscesses of both legs Is this a current diagnosis for this admission?: Yes Summary: He had to have debridement of some of these. He required a wound VAC on the one on his left anterior tibial surface. These turned out to be due to organisms that can be treated with oral Keflex. He will finish 14 days total of treatment. (4) Sepsis Is this a current diagnosis for this admission?: Yes Summary: This was due to the cellulitis in his lower extremities. Treatment is as noted above. - Additional Information Resuscitation Status: Full Code Discharge Diet: Diabetic Discharge Activity: Activity As Tolerated, Balance Activity w/Rest, Keep Legs Elevated Prescriptions: Cephalexin [Cephalexin 500 MG Tablet] 500 mg PO QID #20 tablet Insulin Glargine,Hum.rec.anlog [Toujeo Solostar] 40 unit SQ DAILY #1 insuln.pen Insulin Lispro [Humalog Insulin (Lispro) 100 unit/mL] 0 - 16 unit SUBCUT ACHSP PRN #1 bottle PRN Reason: Home Medications: Cephalexin [Cephalexin 500 MG Tablet] 500 mg PO QID #20 tablet 04/28/18 Insulin Glargine,Hum.rec.anlog [Toujeo Solostar] 40 unit SQ DAILY #1 insuln.pen 04/28/18 Insulin Lispro [Humalog Insulin (Lispro) 100 unit/mL] 0 - 16 unit SUBCUT ACHSP PRN #1 bottle 04/28/18 History of Present Illness History of Present Illness: GERMÁN WING is a 62 year old male complains of foul-smelling drainage from his lower extremity was also found to be in hyperglycemic nonketotic status. He has a long history of diabetes but he is noncompliant stating that he last took his insulin about 3 months ago. He has had a previous history of chronic wounds with debridement of right lower extremity included fasciotomy. He has been seen by Dr. Lainez already and plan is to take him to the OR once he is stable for debridement of his lower extremities. Patient also was found to have a fracture of his foot. He denies any history of a fall. Patient does have neuropathy. In addition patient was found to be anemic with hemoglobin of 7.7. He does have a chronic anemia history however his hemoglobin is lower than his baseline and because he is now acutely ill and will be going to the OR he likely will be transfused prior to that. Patient is currently on insulin drip which will be continued. Hospital Course Hospital Course: He was put on broad-spectrum antibiotics and initially had to go to the OR for debridement of the multiple wounds and infected places on his legs. He ultimately required a wound VAC to be placed on the one on his left anterior tibial surface. Cultures revealed organisms that were sensitive to Keflex and so infectious disease recommended that he finish his 14-day course of treatment on Keflex. His blood sugars were high and he apparently had not taken his insulin quite some time when he was admitted and required an insulin drip initially. We got his blood sugars back under better control I have given him prescriptions for his insulin. He was also noted to have a fracture of his right medial malleolus is not sure if he fell, but he is not a very good historian. She lives at home with his and is going home with home health, a walking boot on the right foot per orthopedics, and a wound VAC on the left leg which home health will follow. He also has outpatient follow-up arranged with surgery. He was discharged home in good condition. Physical Exam Vital Signs: Temp Pulse Resp BP Pulse Ox 97.7 F 90 16 150/68 H 99 04/28/18 14:03 04/28/18 14:03 04/28/18 14:03 04/28/18 14:03 04/28/18 14:03 Intake & Output 04/27/18 04/28/18 04/29/18 06:59 06:59 06:59 Intake Total 2635 2877 Output Total 4400 2500 Balance -1765 377 Weight 92.3 kg General appearance: PRESENT: no acute distress Respiratory exam: PRESENT: clear to auscultation sania, symmetrical Cardiovascular exam: PRESENT: +S1, +S2 GI/Abdominal exam: PRESENT: normal bowel sounds, soft. ABSENT: tenderness Extremities exam: PRESENT: tenderness - bilateral lower LE- wound vac noted- mild TTP of the crisostomo- no signs of infection- distal pulse intact Neurological exam: PRESENT: alert, awake, oriented to person, oriented to place , oriented to time Results Laboratory Results: 04/24/18 05:07 04/24/18 05:07 Impressions: Chest X-Ray 04/18/18 11:49 IMPRESSION: NO ACUTE RADIOGRAPHIC FINDING IN THE CHEST. Tibia/Fibula X-Ray 04/18/18 13:37 IMPRESSION: Comminuted fracture of the left medial malleolus. No other significant findings. Ankle X-Ray 04/24/18 00:00 IMPRESSION: Medial malleolar fracture. Qualifiers - * PATIENT BEING DISCHARGED WITH ANY OF THE FOLLOWING DIAGNOSIS: No
== END 2018-04-28 18:33 | disposition home health service (06) | DRG 571 ==
LOC: ER 11:29 → EH 15:21 → 3W 18:19 → ICU 22:15 → 4S 04-22 13:38
PROVIDERS: ADMIT Emergency Medicine; ATTEND Emergency Medicine
PROC: 0KBS0ZZ Excision of Right Lower Leg Muscle, Open Approach (ICD-10-PCS; 2018-04-18)
PROC: 30233N1 Transfusion of Nonautologous Red Blood Cells into Peripheral Vein, Percutaneous Approach (ICD-10-PCS; 2018-04-18)
PROC: 0J9P00Z Drainage of Left Lower Leg Subcutaneous Tissue and Fascia with Drainage Device, Open Approach (ICD-10-PCS; 2018-04-18)
PROC: 0J9N00Z Drainage of Right Lower Leg Subcutaneous Tissue and Fascia with Drainage Device, Open Approach (ICD-10-PCS; 2018-04-18)
PROC: 0JBN0ZZ Excision of Right Lower Leg Subcutaneous Tissue and Fascia, Open Approach (ICD-10-PCS; principal; 2018-04-18 17:00)
PROC: 0JDP0ZZ Extraction of Left Lower Leg Subcutaneous Tissue and Fascia, Open Approach (ICD-10-PCS; 2018-04-21)
PROC: 0JDN0ZZ Extraction of Right Lower Leg Subcutaneous Tissue and Fascia, Open Approach (ICD-10-PCS; 2018-04-21)
PROC: 30233N1 Transfusion of Nonautologous Red Blood Cells into Peripheral Vein, Percutaneous Approach (ICD-10-PCS; 2018-04-21)
PROC: 3E02340 Introduction of Influenza Vaccine into Muscle, Percutaneous Approach (ICD-10-PCS; 2018-04-28)
DX: L97.823 Non-pressure chronic ulcer of other part of left lower leg with necrosis of muscle (principal); L03.115 Cellulitis of right lower limb; E87.1 Hypo-osmolality and hyponatremia; L02.416 Cutaneous abscess of left lower limb; L02.415 Cutaneous abscess of right lower limb; A02.9 Salmonella infection, unspecified; M60.061 Infective myositis, right lower leg; L97.212 Non-pressure chronic ulcer of right calf with fat layer exposed; E10.622 Type 1 diabetes mellitus with other skin ulcer; E10.65 Type 1 diabetes mellitus with hyperglycemia; E10.40 Type 1 diabetes mellitus with diabetic neuropathy, unspecified; E10.628 Type 1 diabetes mellitus with other skin complications; T38.3X6A Underdosing of insulin and oral hypoglycemic [antidiabetic] drugs, initial encounter; Z91.128 Patient's intentional underdosing of medication regimen for other reason; I10 Essential (primary) hypertension; Z83.3 Family history of diabetes mellitus; Z82.49 Family history of ischemic heart disease and other diseases of the circulatory system; E66.9 Obesity, unspecified; R01.1 Cardiac murmur, unspecified; E87.5 Hyperkalemia; D50.9 Iron deficiency anemia, unspecified; F10.10 Alcohol abuse, uncomplicated; S82.52XA Displaced fracture of medial malleolus of left tibia, initial encounter for closed fracture; X58.XXXA Exposure to other specified factors, initial encounter; Z79.4 Long term (current) use of insulin; B96.1 Klebsiella pneumoniae [K. pneumoniae] as the cause of diseases classified elsewhere; B95.8 Unspecified staphylococcus as the cause of diseases classified elsewhere; B95.5 Unspecified streptococcus as the cause of diseases classified elsewhere; B96.89 Other specified bacterial agents as the cause of diseases classified elsewhere; Z23 Encounter for immunization
CPT/HCPCS: 00400; 36415; 36430; 71046; 80048; 80053; 80202; 81001; 82607; 82728; 82746; 82962; 83036; 83540; 83550; 83605; 83735; 83880; 84439; 84481; 85025; 85027; 85045; 85610; 86140; 86850; 86900; 86901; 86920; 87040; 87070; 87075; 87077; 87186; 87205; 90471; 90686; 93005; 93010; 94799; 99291; 99292; G0008; J0330; J0690; J0692; J1756; J1815; J2250; J2405; J2704; J2765; J3010; J3370; J3490; J7030; J7060; L4386; P9016